=== PATIENT | male | born 1960 | race Caucasian/White ===

== ENCOUNTER → 2016-08-20 | Outpatient (REF) | payer OTHER ==
[~2016-08-20] MED LIST: /ESCI10TA PO; /WARF25TA PO; CARV6.25 PO; LISI10TA4 PO; NIAS500T2 PO; PERC5TAB8 PO; PERC7.5T8 PO; PLAV75TA2 PO
== END ==
LOC: M LABDRWAD 12:09
PROVIDERS: ATTEND Internal Medicine Cardiovascular Disease
DX: Z00.00 Encounter for general adult medical examination without abnormal findings (principal)

== ENCOUNTER → 2017-12-03 | Outpatient (REF) | payer OTHER ==
[2017-12-03 19:24] LABS: BASO % 0.4 % (0.0-1.0); HEMATOCRIT 42.5 % (42.0-52.0); HEMOGLOBIN 13.9 g/dl (13.5-17.5); IMMATURE GRANULOCYTE % 0.3 % (0-3.0); LYMPH # 1.5 10^3/uL (1.5-4.5); LYMPH % 13.7 % (24.0-44.0); MEAN CORPUSCULAR HGB CONC 32.7 g/dl (32.0-36.5); MEAN CORPUSCULAR VOLUME 88.7 fl (80.0-96.0); MONO % 8.9 % (0.0-5.0); NEUTROPHILS # 8.3 10^3/uL (1.8-7.7); NEUTROPHILS % 76.7 % (36.0-66.0); PLATELET COUNT, AUTOMATED 250 10^3/uL (150-450); RED BLOOD COUNT 4.79 10^6/uL (4.30-6.10); RED CELL DISTRIBUTION WIDTH 13.9 % (11.5-14.5); WHITE BLOOD COUNT 10.8 10^3/uL (4.0-10.0)
[2017-12-03 19:34] LABS: ANION GAP 6 MEQ/L (8-16); BLOOD UREA NITROGEN 21 MG/DL (7-18); CALCIUM LEVEL 8.8 MG/DL (8.5-10.1); CARBON DIOXIDE LEVEL 27 MEQ/L (21-32); CHLORIDE LEVEL 104 MEQ/L (98-107); CREATININE FOR GFR 1.62 MG/DL (0.70-1.30); GLOMERULAR FILTRATION RATE 47.2 (>56); GLUCOSE, FASTING 101 MG/DL (70-100); POTASSIUM SERUM 4.8 MEQ/L (3.5-5.1); SODIUM LEVEL 137 MEQ/L (136-145)
== END ==
LOC: M LABDRWAD 19:10
DX: I50.42 Chronic combined systolic (congestive) and diastolic (congestive) heart failure (principal); I44.7 Left bundle-branch block, unspecified; Z95.810 Presence of automatic (implantable) cardiac defibrillator

== ENCOUNTER → 2018-02-03 | Outpatient (REF) | payer OTHER ==
[2018-02-04 10:05] LABS: BASO % 0.4 % (0.0-1.0); EOS % 0.2 % (0.0-3.0); HEMATOCRIT 40.9 % (42.0-52.0); HEMOGLOBIN 13.2 g/dl (13.5-17.5); IMMATURE GRANULOCYTE % 0.4 % (0-3.0); LYMPH # 1.1 10^3/uL (1.5-4.5); LYMPH % 11.1 % (24.0-44.0); MEAN CORPUSCULAR HEMOGLOBIN 28.2 pg (27.0-33.0); MEAN CORPUSCULAR HGB CONC 32.3 g/dl (32.0-36.5); MEAN CORPUSCULAR VOLUME 87.4 fl (80.0-96.0); MONO # 0.7 10^3/uL (0.0-0.8); MONO % 7.7 % (0.0-5.0); NEUTROPHILS # 7.7 10^3/uL (1.8-7.7); NEUTROPHILS % 80.2 % (36.0-66.0); PLATELET COUNT, AUTOMATED 186 10^3/uL (150-450); RED BLOOD COUNT 4.68 10^6/uL (4.30-6.10); RED CELL DISTRIBUTION WIDTH 14.7 % (11.5-14.5); WHITE BLOOD COUNT 9.6 10^3/uL (4.0-10.0)
[2018-02-04 10:17] LABS: ANION GAP 9 MEQ/L (8-16); BLOOD UREA NITROGEN 21 MG/DL (7-18); CALCIUM LEVEL 8.5 MG/DL (8.5-10.1); CARBON DIOXIDE LEVEL 29 MEQ/L (21-32); CHLORIDE LEVEL 102 MEQ/L (98-107); CREATININE FOR GFR 1.19 MG/DL (0.70-1.30); GLOMERULAR FILTRATION RATE > 60.0 (>56); GLUCOSE, FASTING 113 MG/DL (70-100); POTASSIUM SERUM 4.3 MEQ/L (3.5-5.1); SODIUM LEVEL 140 MEQ/L (136-145)
== END ==
LOC: M LAB REF 09:54
DX: Z79.2 Long term (current) use of antibiotics (principal); Z51.81 Encounter for therapeutic drug level monitoring
CPT/HCPCS: 80048

== ENCOUNTER → 2018-02-10 | Outpatient (REF) | payer OTHER ==
[2018-02-10 14:16] LABS: BASO % 0.6 % (0.0-1.0); HEMATOCRIT 42.8 % (42.0-52.0); HEMOGLOBIN 13.5 g/dl (13.5-17.5); IMMATURE GRANULOCYTE % 0.7 % (0-3.0); LYMPH # 1.1 10^3/uL (1.5-4.5); LYMPH % 15.8 % (24.0-44.0); MEAN CORPUSCULAR HEMOGLOBIN 28.5 pg (27.0-33.0); MEAN CORPUSCULAR HGB CONC 31.5 g/dl (32.0-36.5); MEAN CORPUSCULAR VOLUME 90.3 fl (80.0-96.0); MONO # 0.7 10^3/uL (0.0-0.8); MONO % 9.4 % (0.0-5.0); NEUTROPHILS # 5.3 10^3/uL (1.8-7.7); NEUTROPHILS % 73.5 % (36.0-66.0); PLATELET COUNT, AUTOMATED 208 10^3/uL (150-450); RED BLOOD COUNT 4.74 10^6/uL (4.30-6.10); RED CELL DISTRIBUTION WIDTH 14.8 % (11.5-14.5); WHITE BLOOD COUNT 7.2 10^3/uL (4.0-10.0)
[2018-02-10 14:40] LABS: ANION GAP 12 MEQ/L (8-16); BLOOD UREA NITROGEN 17 MG/DL (7-18); CALCIUM LEVEL 8.6 MG/DL (8.5-10.1); CARBON DIOXIDE LEVEL 26 MEQ/L (21-32); CHLORIDE LEVEL 104 MEQ/L (98-107); CREATININE FOR GFR 1.16 MG/DL (0.70-1.30); GLOMERULAR FILTRATION RATE > 60.0 (>56); GLUCOSE, FASTING 105 MG/DL (70-100); POTASSIUM SERUM 3.9 MEQ/L (3.5-5.1); SODIUM LEVEL 142 MEQ/L (136-145)
== END ==
LOC: M LAB REF 13:03
DX: Z79.2 Long term (current) use of antibiotics (principal)

== ENCOUNTER → 2018-02-17 | Outpatient (REF) | payer OTHER ==
[2018-02-17 16:18] LABS: ANION GAP 11 MEQ/L (8-16); BLOOD UREA NITROGEN 18 MG/DL (7-18); CALCIUM LEVEL 8.9 MG/DL (8.5-10.1); CARBON DIOXIDE LEVEL 25 MEQ/L (21-32); CHLORIDE LEVEL 106 MEQ/L (98-107); CREATININE FOR GFR 1.05 MG/DL (0.70-1.30); GLOMERULAR FILTRATION RATE > 60.0 (>56); GLUCOSE, FASTING 138 MG/DL (70-100); SODIUM LEVEL 142 MEQ/L (136-145)
== END ==
LOC: M LAB REF 15:12
DX: Z79.2 Long term (current) use of antibiotics (principal)

== ENCOUNTER → 2018-02-24 | Outpatient (REF) | payer OTHER ==
[2018-02-24 19:45] LABS: BASO % 0.5 % (0.0-1.0); EOS % 0.2 % (0.0-3.0); HEMATOCRIT 43.3 % (42.0-52.0); HEMOGLOBIN 13.5 g/dl (13.5-17.5); IMMATURE GRANULOCYTE % 0.5 % (0-3.0); LYMPH # 0.8 10^3/uL (1.5-4.5); LYMPH % 13.1 % (24.0-44.0); MEAN CORPUSCULAR HGB CONC 31.2 g/dl (32.0-36.5); MEAN CORPUSCULAR VOLUME 89.6 fl (80.0-96.0); MONO # 0.6 10^3/uL (0.0-0.8); MONO % 9.3 % (0.0-5.0); NEUTROPHILS # 4.9 10^3/uL (1.8-7.7); NEUTROPHILS % 76.4 % (36.0-66.0); PLATELET COUNT, AUTOMATED 237 10^3/uL (150-450); RED BLOOD COUNT 4.83 10^6/uL (4.30-6.10); RED CELL DISTRIBUTION WIDTH 14.8 % (11.5-14.5); WHITE BLOOD COUNT 6.3 10^3/uL (4.0-10.0)
[2018-02-24 19:49] LABS: ANION GAP 8 MEQ/L (8-16); BLOOD UREA NITROGEN 18 MG/DL (7-18); CALCIUM LEVEL 9.1 MG/DL (8.5-10.1); CARBON DIOXIDE LEVEL 28 MEQ/L (21-32); CHLORIDE LEVEL 105 MEQ/L (98-107); CREATININE FOR GFR 1.27 MG/DL (0.70-1.30); GLOMERULAR FILTRATION RATE > 60.0 (>56); GLUCOSE, FASTING 125 MG/DL (70-100); POTASSIUM SERUM 4.2 MEQ/L (3.5-5.1); SODIUM LEVEL 141 MEQ/L (136-145)
== END ==
LOC: M LAB REF 19:14
DX: Z51.81 Encounter for therapeutic drug level monitoring (principal); Z79.2 Long term (current) use of antibiotics

== ENCOUNTER → 2018-03-03 | Outpatient (REF) | payer OTHER ==
[2018-03-03 12:35] LABS: BASO % 0.4 % (0.0-1.0); EOS % 0.1 % (0.0-3.0); HEMATOCRIT 42.8 % (42.0-52.0); HEMOGLOBIN 13.5 g/dl (13.5-17.5); IMMATURE GRANULOCYTE % 0.4 % (0-3.0); LYMPH # 0.8 10^3/uL (1.5-4.5); LYMPH % 12.4 % (24.0-44.0); MEAN CORPUSCULAR HEMOGLOBIN 27.8 pg (27.0-33.0); MEAN CORPUSCULAR HGB CONC 31.5 g/dl (32.0-36.5); MEAN CORPUSCULAR VOLUME 88.2 fl (80.0-96.0); MONO # 0.7 10^3/uL (0.0-0.8); MONO % 11.1 % (0.0-5.0); NEUTROPHILS # 5.1 10^3/uL (1.8-7.7); NEUTROPHILS % 75.6 % (36.0-66.0); PLATELET COUNT, AUTOMATED 243 10^3/uL (150-450); RED BLOOD COUNT 4.85 10^6/uL (4.30-6.10); RED CELL DISTRIBUTION WIDTH 14.6 % (11.5-14.5); WHITE BLOOD COUNT 6.7 10^3/uL (4.0-10.0)
[2018-03-03 13:10] LABS: ANION GAP 9 MEQ/L (8-16); BLOOD UREA NITROGEN 17 MG/DL (7-18); CALCIUM LEVEL 8.6 MG/DL (8.5-10.1); CARBON DIOXIDE LEVEL 26 MEQ/L (21-32); CHLORIDE LEVEL 107 MEQ/L (98-107); CREATININE FOR GFR 1.05 MG/DL (0.70-1.30); GLOMERULAR FILTRATION RATE > 60.0 (>56); GLUCOSE, FASTING 90 MG/DL (70-100); POTASSIUM SERUM 4.5 MEQ/L (3.5-5.1); SODIUM LEVEL 142 MEQ/L (136-145)
== END ==
LOC: M LAB REF 12:20
DX: Z51.81 Encounter for therapeutic drug level monitoring (principal); Z79.2 Long term (current) use of antibiotics

== ENCOUNTER → 2018-03-10 | Outpatient (REF) | payer OTHER ==
[2018-03-10 18:31] LABS: BASO % 0.4 % (0.0-1.0); HEMATOCRIT 42.2 % (42.0-52.0); HEMOGLOBIN 13.2 g/dl (13.5-17.5); IMMATURE GRANULOCYTE % 0.3 % (0-3.0); LYMPH # 0.9 10^3/uL (1.5-4.5); LYMPH % 12.8 % (24.0-44.0); MEAN CORPUSCULAR HEMOGLOBIN 27.7 pg (27.0-33.0); MEAN CORPUSCULAR HGB CONC 31.3 g/dl (32.0-36.5); MEAN CORPUSCULAR VOLUME 88.5 fl (80.0-96.0); MONO # 0.6 10^3/uL (0.0-0.8); NEUTROPHILS # 5.4 10^3/uL (1.8-7.7); NEUTROPHILS % 77.5 % (36.0-66.0); PLATELET COUNT, AUTOMATED 239 10^3/uL (150-450); RED BLOOD COUNT 4.77 10^6/uL (4.30-6.10); RED CELL DISTRIBUTION WIDTH 14.4 % (11.5-14.5)
[2018-03-10 19:11] LABS: ANION GAP 9 MEQ/L (8-16); BLOOD UREA NITROGEN 18 MG/DL (7-18); CALCIUM LEVEL 8.9 MG/DL (8.5-10.1); CARBON DIOXIDE LEVEL 28 MEQ/L (21-32); CHLORIDE LEVEL 104 MEQ/L (98-107); CREATININE FOR GFR 1.14 MG/DL (0.70-1.30); GLOMERULAR FILTRATION RATE > 60.0 (>56); GLUCOSE, FASTING 127 MG/DL (70-100); POTASSIUM SERUM 4.3 MEQ/L (3.5-5.1); SODIUM LEVEL 141 MEQ/L (136-145)
== END ==
LOC: M LAB REF 17:53
DX: Z79.2 Long term (current) use of antibiotics (principal)

== ENCOUNTER → 2018-08-16 | Outpatient (REF) | payer OTHER ==
[~2018-08-16] MED LIST changes: +FURO40TA2 PO; +LIPI80TA PO; +SPIR-10 PO; +SYNT50TA PO; +ZETI10TA30 PO
[2018-08-16 21:06] LABS: BLOOD UREA NITROGEN 16 MG/DL (7-18); CALCIUM LEVEL 8.4 MG/DL (8.5-10.1); CARBON DIOXIDE LEVEL 29 MEQ/L (21-32); CHLORIDE LEVEL 92 MEQ/L (98-107); CREATININE FOR GFR 1.06 MG/DL (0.70-1.30); GLOMERULAR FILTRATION RATE > 60.0 (>56); GLUCOSE, FASTING 77 MG/DL (70-100); LDH LACTATE DEHYDROGENASE 404 U/L (87-241); MAGNESIUM LEVEL 2.1 MG/DL (1.8-2.4); POTASSIUM SERUM 3.8 MEQ/L (3.5-5.1); SODIUM LEVEL 134 MEQ/L (136-145)
[2018-08-16 21:09] LABS: HEMATOCRIT 27.1 % (42.0-52.0); HEMOGLOBIN 8.2 g/dl (13.5-17.5); MEAN CORPUSCULAR HEMOGLOBIN 23.9 pg (27.0-33.0); MEAN CORPUSCULAR HGB CONC 30.3 g/dl (32.0-36.5); PLATELET COUNT, AUTOMATED 495 10^3/uL (150-450); RED BLOOD COUNT 3.43 10^6/uL (4.30-6.10); WHITE BLOOD COUNT 20.6 10^3/uL (4.0-10.0)
[2018-08-16 21:22] LABS: INR 1.5; PROTHROMBIN TIME 18.4 SECONDS (12.1-14.4)
== END ==
LOC: M LAB REF 18:14
DX: Z95.811 Presence of heart assist device (principal)

== ENCOUNTER → 2018-08-30 | Outpatient (REF) | payer OTHER ==
[2018-08-30 18:16] LABS: HEMOGLOBIN 10.9 g/dl (13.5-17.5); MEAN CORPUSCULAR HEMOGLOBIN 23.6 pg (27.0-33.0); MEAN CORPUSCULAR HGB CONC 30.3 g/dl (32.0-36.5); MEAN CORPUSCULAR VOLUME 77.9 fl (80.0-96.0); PLATELET COUNT, AUTOMATED 429 10^3/uL (150-450); RED BLOOD COUNT 4.62 10^6/uL (4.30-6.10); WHITE BLOOD COUNT 11.5 10^3/uL (4.0-10.0)
[2018-08-30 18:32] LABS: BLOOD UREA NITROGEN 21 MG/DL (7-18); CALCIUM LEVEL 9.2 MG/DL (8.5-10.1); CARBON DIOXIDE LEVEL 31 MEQ/L (21-32); CHLORIDE LEVEL 91 MEQ/L (98-107); CREATININE FOR GFR 1.16 MG/DL (0.70-1.30); GLOMERULAR FILTRATION RATE > 60.0 (>56); GLUCOSE, FASTING 101 MG/DL (70-100); LDH LACTATE DEHYDROGENASE 313 U/L (87-241); MAGNESIUM LEVEL 2.1 MG/DL (1.8-2.4); POTASSIUM SERUM 3.6 MEQ/L (3.5-5.1); SODIUM LEVEL 132 MEQ/L (136-145)
[2018-08-30 18:41] LABS: INR 2.11
== END ==
LOC: M LAB REF 16:51
PROVIDERS: ATTEND Physician Assistant Medical
DX: Z95.811 Presence of heart assist device (principal)

== ENCOUNTER → 2018-09-06 | Outpatient (REF) | payer OTHER ==
[~2018-09-06] MED LIST changes: +ALLO100T PO; +COLA100C5 PO; +COUM1TAB14 PO; +FERR325T3 PO; +HYDR-3910 PO; +K-TA10TA2 PO; +PROTPAK PO; +TORS20TA2 PO; +TRAM50TA2 PO
[2018-09-06 19:56] LABS: HEMATOCRIT 37.2 % (42.0-52.0); HEMOGLOBIN 11.2 g/dl (13.5-17.5); MEAN CORPUSCULAR HEMOGLOBIN 23.3 pg (27.0-33.0); MEAN CORPUSCULAR HGB CONC 30.1 g/dl (32.0-36.5); MEAN CORPUSCULAR VOLUME 77.5 fl (80.0-96.0); PLATELET COUNT, AUTOMATED 358 10^3/uL (150-450); WHITE BLOOD COUNT 18.7 10^3/uL (4.0-10.0)
[2018-09-06 20:10] LABS: INR 1.97; PROTHROMBIN TIME 22.8 SECONDS (12.1-14.4)
[2018-09-06 20:17] LABS: BLOOD UREA NITROGEN 40 MG/DL (7-18); CALCIUM LEVEL 9.6 MG/DL (8.5-10.1); CARBON DIOXIDE LEVEL 35 MEQ/L (21-32); CHLORIDE LEVEL 90 MEQ/L (98-107); GLOMERULAR FILTRATION RATE > 60.0 (>56); GLUCOSE, FASTING 76 MG/DL (70-100); LDH LACTATE DEHYDROGENASE 282 U/L (87-241); MAGNESIUM LEVEL 2.5 MG/DL (1.8-2.4); POTASSIUM SERUM 4.2 MEQ/L (3.5-5.1); SODIUM LEVEL 133 MEQ/L (136-145)
== END ==
LOC: M LAB REF 19:28
PROVIDERS: ATTEND Physician Assistant Medical
DX: Z95.811 Presence of heart assist device (principal)

== ENCOUNTER 2018-09-12 10:16 | Emergency (ER) | payer OTHER ==
[~2018-09-12] VITALS: Ht 185.4 cm; Wt 111.2 kg
[~2018-09-12 10:16] MED LIST changes: -ALLO100T PO; -COLA100C5 PO; -COUM1TAB14 PO; -FERR325T3 PO; -HYDR-3910 PO; -K-TA10TA2 PO; -PROTPAK PO; -TORS20TA2 PO; -TRAM50TA2 PO
[2018-09-12] MEDS ORDERED: NS 250 ML IV ONE (11:00)
[2018-09-12 11:26] LABS: BASO # 0.1 10^3/uL (0.0-0.2); BASO % 0.4 % (0.0-1.0); HEMATOCRIT 35.6 % (42.0-52.0); HEMOGLOBIN 11.1 g/dl (13.5-17.5); LYMPH # 0.8 10^3/uL (1.5-4.5); LYMPH % 6.1 % (24.0-44.0); MEAN CORPUSCULAR HGB CONC 31.2 g/dl (32.0-36.5); MEAN CORPUSCULAR VOLUME 76.9 fl (80.0-96.0); MONO % 8.1 % (0.0-5.0); NEUTROPHILS # 10.7 10^3/uL (1.8-7.7); NEUTROPHILS % 84.5 % (36.0-66.0); PLATELET COUNT, AUTOMATED 232 10^3/uL (150-450); RED BLOOD COUNT 4.63 10^6/uL (4.30-6.10); WHITE BLOOD COUNT 12.7 10^3/uL (4.0-10.0)
[2018-09-12 11:37] LABS: INR 1.84; PROTHROMBIN TIME 21.6 SECONDS (12.1-14.4)
--- NOTE | 2018-09-12 11:53 | REP ---
Chest one-view HISTORY: Syncope Comparison: 03/16/2018 An increase in interstitial markings is present in the lungs consistent with chronic interstitial change. The cardiac silhouette is enlarged. The pulmonary vasculature is normal in appearance. A cardiac pacemaker and ventricular assist device are present. Impression: 1. Chronic interstitial change. 2. Cardiomegaly. Electronically Signed by Isaiah Laughlin MD 09/12/2018 11:44 A
--- NOTE | 2018-09-12 12:00 | REP ---
Duplex extremity venous ultrasound: Bilateral lower extremity. History: Calf pain. Question DVT. Findings: The deep veins are anechoic and fully compressible from the groin to the popliteal fossa in the left and right lower extremity. Color flow imaging is homogeneous. Spectral Doppler interrogation demonstrates intact respiratory variation in flow and normal manual augmentation of flow. There is no evidence of deep vein thrombosis. Impression: Negative bilateral lower extremity duplex venous ultrasound. No evidence of deep vein thrombosis. Electronically Signed by Ko Sidhu MD 09/12/2018 11:51 A
[2018-09-12 12:04] LABS: ALT/SGPT 40 U/L (12-78); BILIRUBIN,DIRECT 0.2 MG/DL (0.0-0.2); BILIRUBIN,TOTAL 0.8 MG/DL (0.2-1.0); BLOOD UREA NITROGEN 34 MG/DL (7-18); CALCIUM LEVEL 9.3 MG/DL (8.5-10.1); CARBON DIOXIDE LEVEL 28 MEQ/L (21-32); CHLORIDE LEVEL 90 MEQ/L (98-107); CK-MB VALUE MASS < 1.0 NG/ML (<3.6); CPK CREATINE PHOSPHOKINASE 58 U/L (39-308); GLOMERULAR FILTRATION RATE 55.6 (>56); GLUCOSE, FASTING 168 MG/DL (70-100); LDH LACTATE DEHYDROGENASE 224 U/L (87-241); LIPASE 125 U/L (73-393); MAGNESIUM LEVEL 2.2 MG/DL (1.8-2.4); MB/CK RELATIVE INDEX 1.72 (< OR =4); SODIUM LEVEL 130 MEQ/L (136-145); TOTAL PROTEIN 7.4 GM/DL (6.4-8.2); TROPONIN I 0.04 NG/ML (< 0.10)
--- NOTE | 2018-09-12 12:27 | REP ---
CT Head without contrast HISTORY: Fall COMPARISON: None There is no intraparenchymal hemorrhage, acute infarct, mass or midline shift. The ventricular system is normal in appearance. The cortical sulci are dilated consistent with minimal volume loss. There is no extra cerebral collection. There is no fracture. The visualized sinuses are clear. IMPRESSION: Minimal volume loss. Electronically Signed by Isaiah Laughlin MD 09/12/2018 12:18 P
[2018-09-12] MEDS ORDERED: POTASSIUM CHLORIDE 10 MEQ SR TABLET PO ONE (12:30)
[2018-09-12] MEDS ORDERED: COUM1TAB14 PO (12:49)
[2018-09-12] MEDS ORDERED: K-TA10TA2 PO (12:49)
[2018-09-12] MEDS ORDERED: TORS20TA2 PO (12:49)
[2018-09-12] MEDS ORDERED: TRAM50TA2 PO (12:49)
[2018-09-12] MEDS ORDERED: PROTPAK PO (12:49)
[2018-09-12] MEDS ORDERED: ALLO100T PO (12:49)
[2018-09-12] MEDS ORDERED: COLA100C5 PO (12:49)
[2018-09-12] MEDS ORDERED: FERR325T3 PO (12:58)
[2018-09-12] MEDS ORDERED: LEVOTHYROXINE 50MCG TABLET (0.05MG) PO SCH (13:00)
[2018-09-12] MEDS ORDERED: SPIRONOLACTONE 25 MG TAB PO ONE (13:00)
[2018-09-12] MEDS ORDERED: ESCITALOPRAM OXALATE 10 MG TAB (LEXAPRO) PO ONE (13:00)
[2018-09-12] MEDS ORDERED: LEVOTHYROXINE 50MCG TABLET (0.05MG) PO ONE (13:00)
[2018-09-12] MEDS ORDERED: PANTOPRAZOLE 40MG TAB (PROTONIX) PO ONE (13:00)
[2018-09-12] MEDS ORDERED: ALLOPURINOL 100 MG TAB PO ONE (13:00)
[2018-09-12] MEDS ORDERED: FERROUS SULFATE 325MG TAB PO ONE (13:00)
[2018-09-12] MEDS ORDERED: **hydrALAZINE HCL** 25 MG TAB PO ONE (13:00)
[2018-09-12] MEDS ORDERED: SPIRONOLACTONE 25 MG TAB PO SCH (13:00)
[2018-09-12] MEDS ORDERED: FERROUS SULFATE 325MG TAB PO SCH (13:00)
[2018-09-12] MEDS ORDERED: ALLOPURINOL 100 MG TAB PO SCH (13:00)
[2018-09-12] MEDS ORDERED: HYDR-3910 PO (13:07)
[2018-09-12 15:02] VITALS: BP 90/90
--- NOTE | 2018-09-14 08:40 | ECGEPIP ---
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
== END 2018-09-12 15:06 | disposition short-term general hospital (02) ==
LOC: M ED 10:16
DX: R55 Syncope and collapse (principal); E87.6 Hypokalemia; E87.1 Hypo-osmolality and hyponatremia; I95.9 Hypotension, unspecified; Z95.811 Presence of heart assist device; I49.9 Cardiac arrhythmia, unspecified; I13.11 Hypertensive heart and chronic kidney disease without heart failure, with stage 5 chronic kidney disease, or end stage renal disease; I25.10 Atherosclerotic heart disease of native coronary artery without angina pectoris; I25.2 Old myocardial infarction; G47.30 Sleep apnea, unspecified; N18.6 End stage renal disease; E78.9 Disorder of lipoprotein metabolism, unspecified; E03.9 Hypothyroidism, unspecified; Z95.5 Presence of coronary angioplasty implant and graft; Z79.899 Other long term (current) drug therapy; Z79.01 Long term (current) use of anticoagulants

== ENCOUNTER → 2018-09-14 | Outpatient (REF) | payer OTHER ==
[~2018-09-14] MED LIST changes: +ALLO100T PO; +COLA100C5 PO; +COUM1TAB14 PO; +FERR325T3 PO; +HYDR-3910 PO; +K-TA10TA2 PO; +PROTPAK PO; +TORS20TA2 PO; +TRAM50TA2 PO
[2018-09-14 20:34] LABS: HEMATOCRIT 33.2 % (42.0-52.0); HEMOGLOBIN 10.1 g/dl (13.5-17.5); MEAN CORPUSCULAR HEMOGLOBIN 23.6 pg (27.0-33.0); MEAN CORPUSCULAR HGB CONC 30.4 g/dl (32.0-36.5); MEAN CORPUSCULAR VOLUME 77.6 fl (80.0-96.0); PLATELET COUNT, AUTOMATED 208 10^3/uL (150-450); RED BLOOD COUNT 4.28 10^6/uL (4.30-6.10); WHITE BLOOD COUNT 9.4 10^3/uL (4.0-10.0)
[2018-09-14 20:43] LABS: INR 1.63; PROTHROMBIN TIME 19.6 SECONDS (12.1-14.4)
[2018-09-14 20:52] LABS: BLOOD UREA NITROGEN 17 MG/DL (7-18); CALCIUM LEVEL 8.7 MG/DL (8.5-10.1); CARBON DIOXIDE LEVEL 31 MEQ/L (21-32); CHLORIDE LEVEL 97 MEQ/L (98-107); CREATININE FOR GFR 0.98 MG/DL (0.70-1.30); GLOMERULAR FILTRATION RATE > 60.0 (>56); GLUCOSE, FASTING 135 MG/DL (70-100); LDH LACTATE DEHYDROGENASE 245 U/L (87-241); MAGNESIUM LEVEL 2.5 MG/DL (1.8-2.4); POTASSIUM SERUM 4.3 MEQ/L (3.5-5.1); SODIUM LEVEL 135 MEQ/L (136-145)
== END ==
LOC: M LAB REF 18:29
PROVIDERS: ATTEND Physician Assistant Medical
DX: Z95.811 Presence of heart assist device (principal)

== ENCOUNTER → 2018-09-27 | Outpatient (REF) | payer OTHER ==
[2018-09-27 20:26] LABS: BLOOD UREA NITROGEN 21 MG/DL (7-18); CALCIUM LEVEL 8.8 MG/DL (8.5-10.1); CARBON DIOXIDE LEVEL 27 MEQ/L (21-32); CHLORIDE LEVEL 98 MEQ/L (98-107); CREATININE FOR GFR 1.05 MG/DL (0.70-1.30); GLOMERULAR FILTRATION RATE > 60.0 (>56); GLUCOSE, FASTING 145 MG/DL (70-100); LDH LACTATE DEHYDROGENASE 274 U/L (87-241); MAGNESIUM LEVEL 2.1 MG/DL (1.8-2.4); SODIUM LEVEL 135 MEQ/L (136-145)
[2018-09-27 20:41] LABS: HEMATOCRIT 34.2 % (42.0-52.0); HEMOGLOBIN 10.3 g/dl (13.5-17.5); MEAN CORPUSCULAR HEMOGLOBIN 24.1 pg (27.0-33.0); MEAN CORPUSCULAR HGB CONC 30.1 g/dl (32.0-36.5); MEAN CORPUSCULAR VOLUME 79.9 fl (80.0-96.0); PLATELET COUNT, AUTOMATED 294 10^3/uL (150-450); RED BLOOD COUNT 4.28 10^6/uL (4.30-6.10); WHITE BLOOD COUNT 7.9 10^3/uL (4.0-10.0)
[2018-09-27 21:07] LABS: INR 1.59; PROTHROMBIN TIME 19.2 SECONDS (12.1-14.4)
== END ==
LOC: M LABDRWAD 19:12 → M LAB REF 19:12
PROVIDERS: ATTEND Physician Assistant Medical
DX: Z95.811 Presence of heart assist device (principal); Z79.01 Long term (current) use of anticoagulants

== ENCOUNTER → 2018-10-04 | Outpatient (REF) | payer OTHER ==
[2018-10-04 13:55] LABS: C REACTIVE PROTEIN QUANTITATIV 1.22 MG/DL (0.00-0.30); URIC ACID 7.4 MG/DL (3.5-7.2)
[2018-10-04 18:48] LABS: PERCENT SATURATION 16.3 % (19.7-50.0)
== END ==
LOC: M LAB REF 12:31
PROVIDERS: ATTEND Internal Medicine
DX: M25.561 Pain in right knee (principal); N18.3 Chronic kidney disease, stage 3 (moderate); D64.9 Anemia, unspecified; Z79.01 Long term (current) use of anticoagulants

== ENCOUNTER → 2018-10-04 | Outpatient (REF) | payer OTHER ==
[2018-10-04 15:06] LABS: HEMATOCRIT 33.7 % (42.0-52.0); HEMOGLOBIN 10.4 g/dl (13.5-17.5); MEAN CORPUSCULAR HEMOGLOBIN 24.4 pg (27.0-33.0); MEAN CORPUSCULAR HGB CONC 30.9 g/dl (32.0-36.5); MEAN CORPUSCULAR VOLUME 78.9 fl (80.0-96.0); PLATELET COUNT, AUTOMATED 253 10^3/uL (150-450); RED BLOOD COUNT 4.27 10^6/uL (4.30-6.10); WHITE BLOOD COUNT 9.5 10^3/uL (4.0-10.0)
[2018-10-04 15:18] LABS: INR 1.38; PROTHROMBIN TIME 17.2 SECONDS (12.1-14.4)
[2018-10-04 15:27] LABS: BLOOD UREA NITROGEN 20 MG/DL (7-18); CALCIUM LEVEL 8.7 MG/DL (8.5-10.1); CARBON DIOXIDE LEVEL 31 MEQ/L (21-32); CHLORIDE LEVEL 99 MEQ/L (98-107); CREATININE FOR GFR 1.13 MG/DL (0.70-1.30); GLOMERULAR FILTRATION RATE > 60.0 (>56); GLUCOSE, FASTING 83 MG/DL (70-100); MAGNESIUM LEVEL 2.1 MG/DL (1.8-2.4); POTASSIUM SERUM 4.3 MEQ/L (3.5-5.1); SODIUM LEVEL 137 MEQ/L (136-145)
[2018-10-04 15:41] LABS: LDH LACTATE DEHYDROGENASE 215 U/L (87-241)
== END ==
LOC: M LAB REF 14:43
PROVIDERS: ATTEND Physician Assistant Medical
DX: Z95.811 Presence of heart assist device (principal); Z79.01 Long term (current) use of anticoagulants

== ENCOUNTER → 2018-10-11 | Outpatient (REF) | payer OTHER ==
[2018-10-11 18:23] LABS: HEMATOCRIT 34.1 % (42.0-52.0); HEMOGLOBIN 10.5 g/dl (13.5-17.5); MEAN CORPUSCULAR HGB CONC 30.8 g/dl (32.0-36.5); PLATELET COUNT, AUTOMATED 252 10^3/uL (150-450); RED BLOOD COUNT 4.37 10^6/uL (4.30-6.10); WHITE BLOOD COUNT 10.8 10^3/uL (4.0-10.0)
[2018-10-11 18:26] LABS: BLOOD UREA NITROGEN 23 MG/DL (7-18); CALCIUM LEVEL 8.6 MG/DL (8.5-10.1); CARBON DIOXIDE LEVEL 30 MEQ/L (21-32); CHLORIDE LEVEL 100 MEQ/L (98-107); CREATININE FOR GFR 1.16 MG/DL (0.70-1.30); GLOMERULAR FILTRATION RATE > 60.0 (>56); GLUCOSE, FASTING 85 MG/DL (70-100); LDH LACTATE DEHYDROGENASE 214 U/L (87-241); MAGNESIUM LEVEL 2.2 MG/DL (1.8-2.4); POTASSIUM SERUM 4.1 MEQ/L (3.5-5.1); SODIUM LEVEL 136 MEQ/L (136-145)
[2018-10-11 18:36] LABS: INR 1.48; PROTHROMBIN TIME 18.2 SECONDS (12.1-14.4)
== END ==
LOC: M LAB REF 16:58
PROVIDERS: ATTEND Physician Assistant Medical
DX: Z95.811 Presence of heart assist device (principal); Z79.01 Long term (current) use of anticoagulants

== ENCOUNTER → 2018-10-11 | Outpatient (REF) | payer OTHER ==
[2018-10-11 13:40] LABS: INR 1.45; PROTHROMBIN TIME 17.8 SECONDS (12.1-14.4)
== END ==
LOC: M LABDRAW1 12:45
PROVIDERS: ATTEND Physician Assistant
DX: S83.91XA Sprain of unspecified site of right knee, initial encounter (principal); W19.XXXA Unspecified fall, initial encounter; Y92.89 Other specified places as the place of occurrence of the external cause

== ENCOUNTER → 2018-10-25 | Outpatient (REF) | payer OTHER ==
[2018-10-25 10:36] LABS: HEMATOCRIT 34.8 % (42.0-52.0); HEMOGLOBIN 10.6 g/dl (13.5-17.5); MEAN CORPUSCULAR HEMOGLOBIN 24.1 pg (27.0-33.0); MEAN CORPUSCULAR HGB CONC 30.5 g/dl (32.0-36.5); MEAN CORPUSCULAR VOLUME 79.3 fl (80.0-96.0); PLATELET COUNT, AUTOMATED 255 10^3/uL (150-450); RED BLOOD COUNT 4.39 10^6/uL (4.30-6.10); WHITE BLOOD COUNT 9.9 10^3/uL (4.0-10.0)
[2018-10-25 10:41] LABS: BLOOD UREA NITROGEN 17 MG/DL (7-18); CALCIUM LEVEL 8.5 MG/DL (8.5-10.1); CARBON DIOXIDE LEVEL 28 MEQ/L (21-32); CHLORIDE LEVEL 101 MEQ/L (98-107); CREATININE FOR GFR 1.13 MG/DL (0.70-1.30); GLOMERULAR FILTRATION RATE > 60.0 (>56); GLUCOSE, FASTING 125 MG/DL (70-100); LDH LACTATE DEHYDROGENASE 256 U/L (87-241); MAGNESIUM LEVEL 2.2 MG/DL (1.8-2.4); POTASSIUM SERUM 4.4 MEQ/L (3.5-5.1); SODIUM LEVEL 136 MEQ/L (136-145)
[2018-10-25 10:45] LABS: INR 1.59; PROTHROMBIN TIME 19.2 SECONDS (12.1-14.4)
== END ==
LOC: M LAB REF 09:50
PROVIDERS: ATTEND Physician Assistant Medical
DX: Z95.811 Presence of heart assist device (principal)

== ENCOUNTER → 2018-11-08 | Outpatient (REF) | payer OTHER ==
[~2018-11-08] MED LIST changes: -/ESCI10TA PO; -/WARF25TA PO; +COUM1TAB18 PO; +LEXA1TAB PO
[2018-11-08 20:06] LABS: HEMATOCRIT 38.2 % (42.0-52.0); HEMOGLOBIN 11.3 g/dl (13.5-17.5); MEAN CORPUSCULAR HEMOGLOBIN 23.7 pg (27.0-33.0); MEAN CORPUSCULAR HGB CONC 29.6 g/dl (32.0-36.5); MEAN CORPUSCULAR VOLUME 80.3 fl (80.0-96.0); PLATELET COUNT, AUTOMATED 302 10^3/uL (150-450); RED BLOOD COUNT 4.76 10^6/uL (4.30-6.10); WHITE BLOOD COUNT 8.6 10^3/uL (4.0-10.0)
[2018-11-08 20:17] LABS: BLOOD UREA NITROGEN 17 MG/DL (7-18); CALCIUM LEVEL 8.7 MG/DL (8.5-10.1); CARBON DIOXIDE LEVEL 30 MEQ/L (21-32); CHLORIDE LEVEL 99 MEQ/L (98-107); GLOMERULAR FILTRATION RATE > 60.0 (>56); GLUCOSE, FASTING 83 MG/DL (70-100); LDH LACTATE DEHYDROGENASE 231 U/L (87-241); MAGNESIUM LEVEL 2.3 MG/DL (1.8-2.4); POTASSIUM SERUM 4.5 MEQ/L (3.5-5.1); SODIUM LEVEL 136 MEQ/L (136-145)
[2018-11-08 20:18] LABS: INR 1.85; PROTHROMBIN TIME 21.7 SECONDS (12.1-14.4)
== END ==
LOC: M LABDRWAD 19:24
PROVIDERS: ATTEND Nurse Practitioner Acute Care
DX: Z51.81 Encounter for therapeutic drug level monitoring (principal); Z79.01 Long term (current) use of anticoagulants; Z79.899 Other long term (current) drug therapy; Z95.811 Presence of heart assist device; D59.4 Other nonautoimmune hemolytic anemias; R79.0 Abnormal level of blood mineral; T82.897A Other specified complication of cardiac prosthetic devices, implants and grafts, initial encounter; Y83.1 Surgical operation with implant of artificial internal device as the cause of abnormal reaction of the patient, or of later complication, without mention of misadventure at the time of the procedure

== ENCOUNTER → 2018-11-25 | Outpatient (REF) | payer OTHER ==
[2018-11-25 15:21] LABS: PERCENT SATURATION 8.9 % (19.7-50.0)
== END ==
LOC: M LAB REF 12:37
PROVIDERS: ATTEND Internal Medicine
DX: D64.9 Anemia, unspecified (principal)

== ENCOUNTER 2019-01-04 10:42 | Outpatient (RCR) | payer OTHER, SELFPAY ==
--- NOTE | 2018-12-08 15:38 | CARECAPL ---
Assessment Account #s: Initial Assessment (LVAD- DR. VILLA) General Date of event: Aug 04, 2018 Physician: Guille Araya Allergies: Coded Allergies: MS - No Known Drug Allergy (Verified Allergy, Unknown, 11/15/12) Date Entered Program: December 08, 2018 Risk strat for cardiac event: High (LVAD) Exercise Date: December 08, 2018 Assessment: Initial Assessment Exercise Prescription Plan TO EDUCATE AND BUILD ENDURANCE THROUGH MONITORED EXERCISE Modalities initiated: Treadmill (WILL ADD), Cardio-Strider (WILL ADD), Nustep (WILL ADD), Arm Aerometer (WILL ADD), Dumbells (WILL ADD), Recumbent Bike (WILL ADD) Frequency: 3 Duration (Minutes) 30-60 minutes total exercise a day. 10-15 work intervals in minutes. 5 MINUTES PRN rest intervals in minutes. Functional Capacity Goal Sustained Metabolic Equivalent of a task (MET) goal of 2.5-3.0 for 12-15 minutes. Intensity: 3-Moderate Progression (METS) Increase by: 0.5 METS every: 3-5 sessions Target Heart Rate 98-131 PER AGE PREDICTED Resistance Training: Yes Reps: 8-12 Hypertension: Yes Hypertension controlled with: Medication Resting SBP 84 Medications Scheduled Allopurinol (Allopurinol), 100 MG PO DAILY, (Reported) Aspirin (Aspir 81), 81 MG PO DAILY, (Reported) Atorvastatin Calcium (Lipitor), 80 MG PO DAILY, (Reported) Escitalopram Oxalate (Lexapro), 20 MG PO DAILY, (Reported) Ezetimibe (Zetia), 10 MG PO DAILY, (Reported) Ferrous Sulfate (Ferrous Sulfate), 325 MG PO DAILY, (Reported) Hydralazine HCl (Hydralazine HCl), 25 MG PO TID, (Reported) Levothyroxine Sodium (Synthroid), 50 MCG PO DAILY, (Reported) Polyethylene Glycol 3350 (Miralax), 17 GRAM PO BID, (Reported) Spironolactone (Spironolactone), 25 MG PO DAILY, (Reported) Torsemide (Torsemide), 20 MG PO QAM, (Reported) Torsemide (Torsemide), 10 MG PO QPM, (Reported) Warfarin Sodium (Coumadin), 4 MG PO DAILY, (Reported) Scheduled PRN Acetaminophen (Acetaminophen), 2 TAB PO TIDP PRN for PAIN OR FEVER, (Reported) Albuterol Sulfate (Proair Hfa), 2 PUFF INH Q4-6HP PRN for wheezing, (Reported) Docusate Sodium (Colace), 100 MG PO BIDP PRN for CONSTIPATION, (Reported) Tramadol HCl (Tramadol HCl), 50 MG PO Q6HP PRN for pain, (Reported) Discontinued Medications Docusate Sodium (Colace), 1 CAP PO BID, (Reported) Discontinued Reason: Pt states not taking Pantoprazole Sodium (Protonix), 40 MG PO DAILY, (Reported) Discontinued Reason: Pt states not taking Potassium Chloride (K-Tab ER), 20 MEQ PO, (Reported) Discontinued Reason: Pt states not taking Torsemide (Torsemide), 20 MG PO DAILY, (Reported) Discontinued Reason: Pt states not taking Current BP 84 Med Change: No Intervention Resistance Training: Yes Education: Self pulse, Ex safety, S/S to report, Low NA diet, BP medication, RPE Scale, Equipment orientation, warm up/cool down, Understand BP, Physical Active Target Goals Individual exercise Rx (1) BP 140/90 or 130/80 if DM or CKD (1) Aerobic active 30+min 5 days per week (1) Nutrition Date: December 08, 2018 Assessment: Initial Assessment (LVAD) Lipid- med/supplement LIPITOR Med Change: No Diabetes Diabetes: No Monitor Blood Sugar at home: No Medication Change: No Weight Management Weight (lbs): 269.8 Height (inches): 73.5 Waist Circumference (Inches): 46 BMI: 35.1 Weight goal: 225 Special Diet: low salt, low-fat Alcohol: none Diet Access Tool: Rate your plate Score: 64 Current Weight (pounds): 269.8 Weight Goal 225 Intervention Financial Aid Officer Consult: No Nurse/patient discussion: Yes Dietary Goals TO MAKE HEART HEALTHY CHOICES Diet Class: Yes (WILL SEE SKIMMER REVERBERATORY DURING PHASE II PROGRAM) Referral to Diabetes education: No Referral to lipid clinic: No Referral to weight mangement p: No Education Relate Diabetes in CAD, Eating Healthy Target goal LDL-C<100 if triglycerides are >200 Non-HDL-C should be <130 (1) LDL-C<70 for high risk patients (4) HbA1c<7% (1) BMI<25 Waist cir<40in M/<35in F (1) Education Date: December 08, 2018 Assessment: Initial Assessment (LVAD) Learning Barriers: ready Knowledge Test Score: 10 Family Support: Yes Tobacco use: No Quit: >6 months Tobacco Use Date quit: Jun 09, 2005 Smokeless tobacco: No Intervention Referral to smoking cessation: No Individual education and couns: No Tobacco Adjunct: No Education class schedule given: No Attended education classes: No Education: tobacco triggers, CAD, Risk factors, med compliance, cardiac A&P, Angina S/S, Sexuality Target Goals Complete cessation of tobacco use (1). Psychosocial Date: December 08, 2018 Assessment: Initial Assessment Psych Test (Initial/Discharge) Tool Used: CESD Score: 24 Intervention Physician Consult: No Physician Referral: No Stress Management Class: No Uses Stress Management Skills: Yes Education Education: Coping Techniques, S/S depression, Relaxation Techniques Target Goal Assess presence or absence of depression using a valid screening tool (1). Maximize coping skills (2). Positive support system (2). Patient/Program Goal Preventative Medication: Yes Aspirin, Yes Statin/OTR lipid Lowering Fall Risk Assess: Yes (NOT A FALL RISK) Provider Assessment Session Number: 1 Provider Assessment: Proceed with rehab Jose Rosen RN December 08, 2018 15:38
[~2019-01-04 10:42] MED LIST changes: +ASPI81TA85 PO; +MIRA3350 PO; +NON-325T5 PO; +PROAAER10 INH; +TORS10TA3 PO
--- NOTE | 2019-01-04 14:14 | CARECAPL ---
Assessment Account #s: Re-Assessment I (LVAD-Dr Clark) General Date of event: Aug 04, 2018 Physician: Guille Araya Allergies: Coded Allergies: MS - No Known Drug Allergy (Verified Allergy, Unknown, 11/15/12) Date Entered Program: December 08, 2018 Risk strat for cardiac event: High ((lvad)) Exercise Date: January 04, 2019 Assessment: Re-Assessment I Exercise Prescription Plan to educate about cardiac disease and to build endurance and strength through a monitored exercise program Modalities initiated: Treadmill (2.0/0.5 mts 2.81 rpe 2 10 minutes), Nustep (mts 2.7 rpe 2 l3), Arm Aerometer (2.0 rpe 3 mts 2.35), Recumbent Bike (R4 10 mi nutes mts 2.7 rpe2) Frequency: 2-3 Duration (Minutes) 30-60 minutes total exercise a day. 6-10 work intervals in minutes. as needed- rest intervals in minutes. Functional Capacity Goal Sustained Metabolic Equivalent of a task (MET) goal of 3.5-4.0 for 15-20 minutes. Intensity: 3-Moderate Progression (METS) Increase by: 0.5 METS every: 2-3 sessions Angina with ex: No Resistance Training: Yes Weight (pounds): 3 Reps: 6-8 Medications Scheduled Allopurinol (Allopurinol), 100 MG PO DAILY, (Reported) Aspirin (Aspir 81), 81 MG PO DAILY, (Reported) Atorvastatin Calcium (Lipitor), 80 MG PO DAILY, (Reported) Escitalopram Oxalate (Lexapro), 20 MG PO DAILY, (Reported) Ezetimibe (Zetia), 10 MG PO DAILY, (Reported) Ferrous Sulfate (Ferrous Sulfate), 325 MG PO DAILY, (Reported) Hydralazine HCl (Hydralazine HCl), 50 MG PO TID, (Reported) Levothyroxine Sodium (Synthroid), 50 MCG PO DAILY, (Reported) Polyethylene Glycol 3350 (Miralax), 17 GRAM PO BID, (Reported) Spironolactone (Spironolactone), 25 MG PO DAILY, (Reported) Torsemide (Torsemide), 20 MG PO QAM, (Reported) Torsemide (Torsemide), 10 MG PO QPM, (Reported) Warfarin Sodium (Coumadin), 4 MG PO DAILY, (Reported) Scheduled PRN Acetaminophen (Acetaminophen), 2 TAB PO TIDP PRN for PAIN OR FEVER, (Reported) Albuterol Sulfate (Proair Hfa), 2 PUFF INH Q4-6HP PRN for wheezing, (Reported) Docusate Sodium (Colace), 100 MG PO BIDP PRN for CONSTIPATION, (Reported) Tramadol HCl (Tramadol HCl), 50 MG PO Q6HP PRN for pain, (Reported) Current BP 74 systolic lvad Med Change: No Intervention Education: S/S to report, Low NA diet, BP medication, RPE Scale, Equipment orientation Education Goals Met: No (progressing toward goals) Target Goals Individual exercise Rx (1) BP 140/90 or 130/80 if DM or CKD (1) Aerobic active 30+min 5 days per week (1) Nutrition Date: January 04, 2019 Assessment: Re-Assessment I Med Change: No Diabetes Diabetes: No Medication Change: No Current Weight (pounds): 279.8 Weight Goal 200 Intervention Dump Worker Consult: Yes (will see during this program) Nurse/patient discussion: Yes Referral to weight mangement p: Yes (will consult "Healthy Lifestyles") Education Goals Met: No (progressing toward goals) Target goal LDL-C<100 if triglycerides are >200 Non-HDL-C should be <130 (1) LDL-C<70 for high risk patients (4) HbA1c<7% (1) BMI<25 Waist cir<40in M/<35in F (1) Education Date: January 04, 2019 Assessment: Re-Assessment I Family Support: Yes Tobacco use: No Intervention Attended education classes: Yes Education: CAD, Risk factors Education Goals Met: No (progressing toward goals) Target Goals Complete cessation of tobacco use (1). Psychosocial Date: January 04, 2019 Assessment: Re-Assessment I Intervention Physician Consult: No Physician Referral: No Stress Management Class: Yes Uses Stress Management Skills: Yes Education Education: Coping Techniques, S/S depression, Relaxation Techniques Education Goals Met: Yes Target Goal Assess presence or absence of depression using a valid screening tool (1). Maximize coping skills (2). Positive support system (2). Provider Assessment Session Number: 5 Provider Assessment: No changes Lisbeth Hickman RN January 04, 2019 14:14
== END 2019-01-06 ==
LOC: M CR 10:42
PROVIDERS: ATTEND Internal Medicine
DX: Z95.811 Presence of heart assist device (principal)

== ENCOUNTER → 2019-01-09 | Outpatient (REF) | payer OTHER ==
[2019-01-09 13:13] LABS: CALCIUM LEVEL 8.9 MG/DL (8.5-10.1); CREATININE FOR GFR 1.31 MG/DL (0.70-1.30); MAGNESIUM LEVEL 2.5 MG/DL (1.8-2.4); POTASSIUM SERUM 4.1 MEQ/L (3.5-5.1)
[2019-01-09 13:16] LABS: HEMATOCRIT 45.4 % (42.0-52.0); HEMOGLOBIN 13.8 g/dl (13.5-17.5); MEAN CORPUSCULAR HEMOGLOBIN 24.9 pg (27.0-33.0); MEAN CORPUSCULAR HGB CONC 30.4 g/dl (32.0-36.5); MEAN CORPUSCULAR VOLUME 81.9 fl (80.0-96.0); PLATELET COUNT, AUTOMATED 234 10^3/uL (150-450); RED BLOOD COUNT 5.54 10^6/uL (4.30-6.10); WHITE BLOOD COUNT 8.4 10^3/uL (4.0-10.0)
[2019-01-09 13:39] LABS: INR 1.18; PROTHROMBIN TIME 15.2 SECONDS (12.1-14.4)
== END ==
LOC: M LABDRWAD 12:33
PROVIDERS: ATTEND Nurse Practitioner Acute Care
DX: Z95.811 Presence of heart assist device (principal)

== ENCOUNTER → 2019-01-16 | Outpatient (CLI) | payer OTHER ==
[2019-01-16 13:21] LABS: HEMATOCRIT 43.3 % (42.0-52.0); HEMOGLOBIN 13.3 g/dl (13.5-17.5); MEAN CORPUSCULAR HEMOGLOBIN 24.6 pg (27.0-33.0); MEAN CORPUSCULAR HGB CONC 30.7 g/dl (32.0-36.5); MEAN CORPUSCULAR VOLUME 80.2 fl (80.0-96.0); PLATELET COUNT, AUTOMATED 200 10^3/uL (150-450); WHITE BLOOD COUNT 8.9 10^3/uL (4.0-10.0)
[2019-01-16 13:23] LABS: CALCIUM LEVEL 9.4 MG/DL (8.5-10.1); CREATININE FOR GFR 1.41 MG/DL (0.70-1.30); GLOMERULAR FILTRATION RATE 55.2 (>56); MAGNESIUM LEVEL 2.3 MG/DL (1.8-2.4); POTASSIUM SERUM 3.9 MEQ/L (3.5-5.1)
[2019-01-16 13:28] LABS: INR 1.7; PROTHROMBIN TIME 20.3 SECONDS (12.1-14.4)
== END ==
LOC: M LABDRWAD 09:07
PROVIDERS: ATTEND Nurse Practitioner Acute Care
DX: Z95.811 Presence of heart assist device (principal)

== ENCOUNTER → 2019-01-23 | Outpatient (CLI) | payer OTHER ==
[2019-01-23 13:45] LABS: HEMATOCRIT 43.5 % (42.0-52.0); HEMOGLOBIN 13.2 g/dl (13.5-17.5); MEAN CORPUSCULAR HEMOGLOBIN 25.3 pg (27.0-33.0); MEAN CORPUSCULAR HGB CONC 30.3 g/dl (32.0-36.5); MEAN CORPUSCULAR VOLUME 83.3 fl (80.0-96.0); PLATELET COUNT, AUTOMATED 184 10^3/uL (150-450); RED BLOOD COUNT 5.22 10^6/uL (4.30-6.10); WHITE BLOOD COUNT 8.9 10^3/uL (4.0-10.0)
[2019-01-23 13:53] LABS: BLOOD UREA NITROGEN 21 MG/DL (7-18); CARBON DIOXIDE LEVEL 29 MEQ/L (21-32); CHLORIDE LEVEL 105 MEQ/L (98-107); CREATININE FOR GFR 1.13 MG/DL (0.70-1.30); GLOMERULAR FILTRATION RATE > 60.0 (>56); GLUCOSE, FASTING 100 MG/DL (70-100); LDH LACTATE DEHYDROGENASE 217 U/L (87-241); MAGNESIUM LEVEL 2.4 MG/DL (1.8-2.4); POTASSIUM SERUM 4.3 MEQ/L (3.5-5.1); SODIUM LEVEL 139 MEQ/L (136-145)
[2019-01-23 13:57] LABS: INR 1.46
== END ==
LOC: M ADAMS 09:03
PROVIDERS: ATTEND Nurse Practitioner Acute Care
DX: Z95.811 Presence of heart assist device (principal)

== ENCOUNTER 2019-01-30 10:56 | Outpatient (RCR) | payer OTHER | END 2019-02-05 | LOC: M CR 10:56 | PROVIDERS: ATTEND Internal Medicine | DX: Z95.811 Presence of heart assist device (principal) ==

== ENCOUNTER → 2019-01-30 | Outpatient (CLI) | payer OTHER ==
[2019-01-30 14:05] LABS: HEMATOCRIT 42.1 % (42.0-52.0); HEMOGLOBIN 12.9 g/dl (13.5-17.5); MEAN CORPUSCULAR HEMOGLOBIN 25.4 pg (27.0-33.0); MEAN CORPUSCULAR HGB CONC 30.6 g/dl (32.0-36.5); PLATELET COUNT, AUTOMATED 174 10^3/uL (150-450); RED BLOOD COUNT 5.07 10^6/uL (4.30-6.10)
[2019-01-30 14:13] LABS: BLOOD UREA NITROGEN 19 MG/DL (7-18); CALCIUM LEVEL 8.9 MG/DL (8.5-10.1); CARBON DIOXIDE LEVEL 29 MEQ/L (21-32); CHLORIDE LEVEL 106 MEQ/L (98-107); CREATININE FOR GFR 1.22 MG/DL (0.70-1.30); GLOMERULAR FILTRATION RATE > 60.0 (>56); GLUCOSE, FASTING 103 MG/DL (70-100); LDH LACTATE DEHYDROGENASE 236 U/L (87-241); MAGNESIUM LEVEL 2.4 MG/DL (1.8-2.4); POTASSIUM SERUM 4.1 MEQ/L (3.5-5.1); SODIUM LEVEL 141 MEQ/L (136-145)
[2019-01-30 14:16] LABS: INR 1.44; PROTHROMBIN TIME 17.3 SECONDS (11.8-14.0)
== END ==
LOC: M LABDRWAD 09:23
PROVIDERS: ATTEND Nurse Practitioner Acute Care
DX: Z95.811 Presence of heart assist device (principal)

== ENCOUNTER → 2019-02-06 | Outpatient (CLI) | payer OTHER ==
[2019-02-06 12:45] LABS: HEMATOCRIT 42.8 % (42.0-52.0); HEMOGLOBIN 13.2 g/dl (13.5-17.5); MEAN CORPUSCULAR HEMOGLOBIN 25.1 pg (27.0-33.0); MEAN CORPUSCULAR HGB CONC 30.8 g/dl (32.0-36.5); MEAN CORPUSCULAR VOLUME 81.5 fl (80.0-96.0); PLATELET COUNT, AUTOMATED 205 10^3/uL (150-450); RED BLOOD COUNT 5.25 10^6/uL (4.30-6.10); WHITE BLOOD COUNT 10.2 10^3/uL (4.0-10.0)
[2019-02-06 12:50] LABS: BLOOD UREA NITROGEN 19 MG/DL (7-18); CALCIUM LEVEL 9.1 MG/DL (8.5-10.1); CARBON DIOXIDE LEVEL 30 MEQ/L (21-32); CHLORIDE LEVEL 102 MEQ/L (98-107); CREATININE FOR GFR 1.18 MG/DL (0.70-1.30); GLOMERULAR FILTRATION RATE > 60.0 (>56); GLUCOSE, FASTING 93 MG/DL (70-100); LDH LACTATE DEHYDROGENASE 216 U/L (87-241); MAGNESIUM LEVEL 2.4 MG/DL (1.8-2.4); POTASSIUM SERUM 4.1 MEQ/L (3.5-5.1); SODIUM LEVEL 139 MEQ/L (136-145)
[2019-02-06 13:03] LABS: INR 2.07; PROTHROMBIN TIME 23.1 SECONDS (11.8-14.0)
== END ==
LOC: M ADAMS 09:05
PROVIDERS: ATTEND Nurse Practitioner Acute Care
DX: Z95.811 Presence of heart assist device (principal)

== ENCOUNTER → 2019-02-13 | Outpatient (REF) | payer SELFPAY ==
[2019-02-13 20:01] LABS: HEMATOCRIT 42.2 % (42.0-52.0); HEMOGLOBIN 13.4 g/dl (13.5-17.5); MEAN CORPUSCULAR HEMOGLOBIN 26.1 pg (27.0-33.0); MEAN CORPUSCULAR HGB CONC 31.8 g/dl (32.0-36.5); MEAN CORPUSCULAR VOLUME 82.1 fl (80.0-96.0); PLATELET COUNT, AUTOMATED 254 10^3/uL (150-450); RED BLOOD COUNT 5.14 10^6/uL (4.30-6.10); WHITE BLOOD COUNT 8.9 10^3/uL (4.0-10.0)
[2019-02-13 20:18] LABS: BLOOD UREA NITROGEN 14 MG/DL (7-18); CALCIUM LEVEL 9.3 MG/DL (8.5-10.1); CARBON DIOXIDE LEVEL 27 MEQ/L (21-32); CHLORIDE LEVEL 104 MEQ/L (98-107); CREATININE FOR GFR 1.19 MG/DL (0.70-1.30); GLOMERULAR FILTRATION RATE > 60.0 (>56); GLUCOSE, FASTING 63 MG/DL (70-100); INR 2.15; LDH LACTATE DEHYDROGENASE 239 U/L (87-241); NT-PRO BNP 529 PG/ML (<125); POTASSIUM SERUM 4.3 MEQ/L (3.5-5.1); PROTHROMBIN TIME 23.8 SECONDS (11.8-14.0); SODIUM LEVEL 140 MEQ/L (136-145)
== END ==
LOC: M LABDRWAD 19:20
PROVIDERS: ATTEND Nurse Practitioner Acute Care
DX: Z95.811 Presence of heart assist device (principal)

== ENCOUNTER → 2019-02-20 | Outpatient (REF) | payer SELFPAY ==
[2019-02-20 13:26] LABS: HEMATOCRIT 43.7 % (42.0-52.0); HEMOGLOBIN 13.9 g/dl (13.5-17.5); MEAN CORPUSCULAR HEMOGLOBIN 26.2 pg (27.0-33.0); MEAN CORPUSCULAR HGB CONC 31.8 g/dl (32.0-36.5); MEAN CORPUSCULAR VOLUME 82.3 fl (80.0-96.0); PLATELET COUNT, AUTOMATED 232 10^3/uL (150-450); RED BLOOD COUNT 5.31 10^6/uL (4.30-6.10); WHITE BLOOD COUNT 8.1 10^3/uL (4.0-10.0)
[2019-02-20 13:36] LABS: INR 2.08; PROTHROMBIN TIME 23.1 SECONDS (11.8-14.0)
[2019-02-20 13:55] LABS: CALCIUM LEVEL 8.8 MG/DL (8.5-10.1); CREATININE FOR GFR 1.36 MG/DL (0.70-1.30); GLOMERULAR FILTRATION RATE 57.3 (>56); MAGNESIUM LEVEL 2.1 MG/DL (1.8-2.4); POTASSIUM SERUM 3.8 MEQ/L (3.5-5.1)
== END ==
LOC: M LABDRWAD 12:34
PROVIDERS: ATTEND Nurse Practitioner Acute Care
DX: Z95.811 Presence of heart assist device (principal)

== ENCOUNTER 2019-02-27 15:10 | Outpatient (RCR) | payer OTHER, SELFPAY ==
--- NOTE | 2019-02-06 15:08 | CARECAPL ---
Assessment Account #s: Re-Assessment II (lvad-DrVidula) General Date of event: Aug 04, 2018 Physician: Guille Araya Allergies: Coded Allergies: MS - No Known Drug Allergy (Verified Allergy, Unknown, 11/15/12) Date Entered Program: December 08, 2018 Risk strat for cardiac event: High Exercise Date: Feb 06, 2019 Assessment: Re-Assessment II Exercise Prescription Modalities initiated: Treadmill (2.4/1.0 mts 3.17 rpe 3), Nustep (L4 mts 2.7 rpe 3), Arm Aerometer (3.0 mts 2.7 rpe 3), Dumbells, Recumbent Bike (r5 mts 6.1 rpe 3) Frequency: 2 Duration (Minutes) 30-60 minutes total exercise a day. 5-15 work intervals in minutes. rest intervals in minutes. Functional Capacity Goal Sustained Metabolic Equivalent of a task (MET) goal of for minutes. Progression (METS) Increase by: .5 METS every: 2-3 sessions Weight (pounds): 4 Reps: 6-8 Medications Scheduled Allopurinol (Allopurinol), 100 MG PO DAILY, (Reported) Aspirin (Aspir 81), 81 MG PO DAILY, (Reported) Atorvastatin Calcium (Lipitor), 80 MG PO DAILY, (Reported) Escitalopram Oxalate (Lexapro), 20 MG PO DAILY, (Reported) Ezetimibe (Zetia), 10 MG PO DAILY, (Reported) Ferrous Sulfate (Ferrous Sulfate), 325 MG PO DAILY, (Reported) Hydralazine HCl (Hydralazine HCl), 50 MG PO TID, (Reported) Levothyroxine Sodium (Synthroid), 50 MCG PO DAILY, (Reported) Polyethylene Glycol 3350 (Miralax), 17 GRAM PO BID, (Reported) Spironolactone (Spironolactone), 25 MG PO DAILY, (Reported) Torsemide (Torsemide), 20 MG PO QAM, (Reported) Torsemide (Torsemide), 10 MG PO QPM, (Reported) Warfarin Sodium (Coumadin), 4 MG PO DAILY, (Reported) Scheduled PRN Acetaminophen (Acetaminophen), 2 TAB PO TIDP PRN for PAIN OR FEVER, (Reported) Albuterol Sulfate (Proair Hfa), 2 PUFF INH Q4-6HP PRN for wheezing, (Reported) Docusate Sodium (Colace), 100 MG PO BIDP PRN for CONSTIPATION, (Reported) Tramadol HCl (Tramadol HCl), 50 MG PO Q6HP PRN for pain, (Reported) Current BP 80 sys Med Change: No Intervention Education: Self pulse, Ex safety, S/S to report, Low NA diet, BP medication, RPE Scale, Equipment orientation, warm up/cool down, Understand BP, Physical Active Education Goals Met: No (progressing toward goals) Target Goals Individual exercise Rx (1) BP 140/90 or 130/80 if DM or CKD (1) Aerobic active 30+min 5 days per week (1) Nutrition Date: Feb 06, 2019 Assessment: Re-Assessment II Current Weight (pounds): 269.8 Intervention Nurse/patient discussion: Yes Education Eating Healthy Education Goals Met: No (progressing toward goals) Target goal LDL-C<100 if triglycerides are >200 Non-HDL-C should be <130 (1) LDL-C<70 for high risk patients (4) HbA1c<7% (1) BMI<25 Waist cir<40in M/<35in F (1) Education Date: Feb 06, 2019 Assessment: Re-Assessment II Intervention Education class schedule given: Yes Attended education classes: Yes Education: Risk factors, med compliance, cardiac A&P, Angina S/S Education Goals Met: No (progressing toward goals) Target Goals Complete cessation of tobacco use (1). Psychosocial Date: Feb 06, 2019 Stress Management Class: Yes Uses Stress Management Skills: Yes Education Education: Coping Techniques, S/S depression Education Goals Met: No (progressing toward goals) Target Goal Assess presence or absence of depression using a valid screening tool (1). Maximize coping skills (2). Positive support system (2). Provider Assessment Session Number: 11 Provider Assessment: No changes Lisbeth Hickman RN Feb 06, 2019 15:08
--- NOTE | 2019-02-27 15:55 | CARECAPL ---
Assessment Account #s: Re-Assessment II (DISCHARGE ) General Diagnoses: CHF (LVAD - DR. VILLA) Date of event: Aug 04, 2018 Physician: Guille Araya Allergies: Coded Allergies: MS - No Known Drug Allergy (Verified Allergy, Unknown, 11/15/12) Date Entered Program: December 08, 2018 Risk strat for cardiac event: High Exercise Assessment: Followup/Discharge Exercise Prescription Plan TO EDUCATE AND BUILD ENDURANCE THROUGH MONITORED EXERCISE PROGRAM Modalities initiated: Treadmill (METS=3.53/RPE=3), Nustep (METS=4.9/RPE=3), Dumbells, Recumbent Bike (METS=6.6/RPE=3) Frequency: 3 Duration (Minutes) 30-60 minutes total exercise a day. 10-12 work intervals in minutes. 5 rest intervals in minutes. Functional Capacity Goal Sustained Metabolic Equivalent of a task (MET) goal of 2.5-3.5 for 15-20 minutes. Intensity: 3-Moderate Progression (METS) Increase by: METS every: sessions Angina with ex: No Weight (pounds): 280 Reps: 12-15 Hypertension: Yes Hypertension controlled with: Medication Resting 96 Peak Exercise BP 114 Medications Scheduled Allopurinol (Allopurinol), 100 MG PO DAILY, (Reported) Aspirin (Aspir 81), 81 MG PO DAILY, (Reported) Atorvastatin Calcium (Lipitor), 80 MG PO DAILY, (Reported) Escitalopram Oxalate (Lexapro), 20 MG PO DAILY, (Reported) Ezetimibe (Zetia), 10 MG PO DAILY, (Reported) Ferrous Sulfate (Ferrous Sulfate), 325 MG PO DAILY, (Reported) Hydralazine HCl (Hydralazine HCl), 50 MG PO TID, (Reported) Levothyroxine Sodium (Synthroid), 50 MCG PO DAILY, (Reported) Polyethylene Glycol 3350 (Miralax), 17 GRAM PO BID, (Reported) Spironolactone (Spironolactone), 25 MG PO DAILY, (Reported) Torsemide (Torsemide), 20 MG PO QAM, (Reported) Torsemide (Torsemide), 10 MG PO QPM, (Reported) Warfarin Sodium (Coumadin), 4 MG PO DAILY, (Reported) Scheduled PRN Acetaminophen (Acetaminophen), 2 TAB PO TIDP PRN for PAIN OR FEVER, (Reported) Albuterol Sulfate (Proair Hfa), 2 PUFF INH Q4-6HP PRN for wheezing, (Reported) Docusate Sodium (Colace), 100 MG PO BIDP PRN for CONSTIPATION, (Reported) Tramadol HCl (Tramadol HCl), 50 MG PO Q6HP PRN for pain, (Reported) Current BP 70 Med Change: No Intervention Home exercise: Type (WALKING/MEET PROGRAM), Frequency (3-5 DAYS/WEEK), Duration (30-60 MINUTES) Resistance Training: Yes Education: Self pulse, Ex safety, S/S to report, Low NA diet, BP medication, RPE Scale, Equipment orientation, warm up/cool down, Understand BP, Physical Active Education Goals Met: Yes Target Goals Individual exercise Rx (1) BP 140/90 or 130/80 if DM or CKD (1) Aerobic active 30+min 5 days per week (1) Nutrition Date: Feb 27, 2019 Assessment: Followup/Discharge Lipid- med/supplement ATORVASTATIN 80 MG DAILY Med Change: No Diabetes Diabetes: No Monitor Blood Sugar at home: No Medication Change: No Blood sugar in range: No Weight Management Weight (lbs): 280 Waist Circumference (Inches): 48 BMI: 37.99 Special Diet: low salt, low-fat Diet Access Tool: Rate your plate Score: 64 Current Weight (pounds): 280 Intervention Platform Stapler Consult: Yes (SAW BATTERY CHARGER WHILE IN PROGRAM) Nurse/patient discussion: Yes Dietary Goals MORE FRUITS, HEART HEALTHY DIET Diet Class: Yes Referral to Diabetes education: No Referral to lipid clinic: No Referral to weight mangement p: No Education Eating Healthy Education Goals Met: Yes Target goal LDL-C<100 if triglycerides are >200 Non-HDL-C should be <130 (1) LDL-C<70 for high risk patients (4) HbA1c<7% (1) BMI<25 Waist cir<40in M/<35in F (1) Education Date: Feb 27, 2019 Assessment: Followup/Discharge Learning Barriers: ready Knowledge Test Score: 10 Family Support: Yes Tobacco use: No Tobacco Use Smokeless tobacco: No Intervention Referral to smoking cessation: No Individual education and couns: No Tobacco Adjunct: No Education class schedule given: No Attended education classes: No Education: CAD, Risk factors, med compliance, cardiac A&P, Angina S/S, Sexuality Education Goals Met: Yes Target Goals Complete cessation of tobacco use (1). Psychosocial Date: Feb 27, 2019 Assessment: Followup/Discharge Psych Test (Initial/Discharge) Tool Used: CESD Score: 5 Intervention Physician Consult: No Physician Referral: No Med Change: No Stress Management Class: No Uses Stress Management Skills: Yes Education Education: Coping Techniques, S/S depression, Relaxation Techniques Education Goals Met: Yes Target Goal Assess presence or absence of depression using a valid screening tool (1). Maximize coping skills (2). Positive support system (2). Patient/Program Goal Preventative Medication: Yes Aspirin, Yes Statin/OTR lipid Lowering Fall Risk Assess: Yes (NOT A FALL RISK) Provider Assessment Session Number: 17 Jsoe Rosen RN Feb 27, 2019 15:55
== END 2019-03-08 ==
LOC: M CR 15:10
PROVIDERS: ATTEND Internal Medicine
DX: Z95.811 Presence of heart assist device (principal)

== ENCOUNTER → 2019-02-27 | Outpatient (REF) | payer SELFPAY ==
[2019-02-27 19:56] LABS: HEMATOCRIT 46.9 % (42.0-52.0); HEMOGLOBIN 14.7 g/dl (13.5-17.5); MEAN CORPUSCULAR HGB CONC 31.3 g/dl (32.0-36.5); PLATELET COUNT, AUTOMATED 222 10^3/uL (150-450); RED BLOOD COUNT 5.65 10^6/uL (4.30-6.10); WHITE BLOOD COUNT 10.5 10^3/uL (4.0-10.0)
[2019-02-27 20:03] LABS: CALCIUM LEVEL 9.3 MG/DL (8.5-10.1); CREATININE FOR GFR 1.45 MG/DL (0.70-1.30); GLOMERULAR FILTRATION RATE 53.2 (>56); MAGNESIUM LEVEL 2.1 MG/DL (1.8-2.4); POTASSIUM SERUM 3.9 MEQ/L (3.5-5.1)
[2019-02-27 20:06] LABS: PROTHROMBIN TIME 22.5 SECONDS (11.8-14.0)
== END ==
LOC: M LABDRWAD 19:28
PROVIDERS: ATTEND Nurse Practitioner Acute Care
DX: Z95.811 Presence of heart assist device (principal)

== ENCOUNTER → 2019-03-08 | Outpatient (REF) | payer SELFPAY ==
[2019-03-08 19:46] LABS: HEMATOCRIT 45.2 % (42.0-52.0); HEMOGLOBIN 14.2 g/dl (13.5-17.5); MEAN CORPUSCULAR HEMOGLOBIN 26.9 pg (27.0-33.0); MEAN CORPUSCULAR HGB CONC 31.4 g/dl (32.0-36.5); MEAN CORPUSCULAR VOLUME 85.6 fl (80.0-96.0); PLATELET COUNT, AUTOMATED 188 10^3/uL (150-450); RED BLOOD COUNT 5.28 10^6/uL (4.30-6.10); WHITE BLOOD COUNT 7.9 10^3/uL (4.0-10.0)
[2019-03-08 19:58] LABS: PROTHROMBIN TIME 22.5 SECONDS (11.8-14.0)
[2019-03-08 20:00] LABS: BLOOD UREA NITROGEN 19 MG/DL (7-18); CALCIUM LEVEL 9.2 MG/DL (8.5-10.1); CARBON DIOXIDE LEVEL 31 MEQ/L (21-32); CHLORIDE LEVEL 105 MEQ/L (98-107); CREATININE FOR GFR 1.18 MG/DL (0.70-1.30); GLOMERULAR FILTRATION RATE > 60.0 (>56); GLUCOSE, FASTING 95 MG/DL (70-100); LDH LACTATE DEHYDROGENASE 205 U/L (87-241); MAGNESIUM LEVEL 2.4 MG/DL (1.8-2.4); POTASSIUM SERUM 4.5 MEQ/L (3.5-5.1); SODIUM LEVEL 142 MEQ/L (136-145)
== END ==
LOC: M LABDRWAD 19:02
PROVIDERS: ATTEND Nurse Practitioner Acute Care
DX: Z95.811 Presence of heart assist device (principal)

== ENCOUNTER → 2019-03-13 | Outpatient (REF) | payer SELFPAY ==
[2019-03-13 14:14] LABS: HEMATOCRIT 42.8 % (42.0-52.0); HEMOGLOBIN 13.7 g/dl (13.5-17.5); MEAN CORPUSCULAR HEMOGLOBIN 26.4 pg (27.0-33.0); MEAN CORPUSCULAR VOLUME 82.5 fl (80.0-96.0); PLATELET COUNT, AUTOMATED 193 10^3/uL (150-450); RED BLOOD COUNT 5.19 10^6/uL (4.30-6.10); WHITE BLOOD COUNT 11.2 10^3/uL (4.0-10.0)
[2019-03-13 14:23] LABS: INR 2.39; PROTHROMBIN TIME 25.9 SECONDS (11.8-14.0)
[2019-03-13 14:40] LABS: CALCIUM LEVEL 8.9 MG/DL (8.5-10.1); CREATININE FOR GFR 1.41 MG/DL (0.70-1.30); MAGNESIUM LEVEL 2.5 MG/DL (1.8-2.4); POTASSIUM SERUM 3.6 MEQ/L (3.5-5.1)
== END ==
LOC: M LABDRWAD 12:59
PROVIDERS: ATTEND Nurse Practitioner Acute Care
DX: Z95.811 Presence of heart assist device (principal)

== ENCOUNTER → 2019-03-20 | Outpatient (REF) | payer OTHER, SELFPAY ==
[~2019-03-20] MED LIST changes: +ZETI10TA16 PO; -ZETI10TA30 PO
[2019-03-20 19:40] LABS: HEMATOCRIT 46.1 % (42.0-52.0); HEMOGLOBIN 14.5 g/dl (13.5-17.5); MEAN CORPUSCULAR HEMOGLOBIN 27.3 pg (27.0-33.0); MEAN CORPUSCULAR HGB CONC 31.5 g/dl (32.0-36.5); MEAN CORPUSCULAR VOLUME 86.7 fl (80.0-96.0); PLATELET COUNT, AUTOMATED 168 10^3/uL (150-450); RED BLOOD COUNT 5.32 10^6/uL (4.30-6.10); WHITE BLOOD COUNT 9.5 10^3/uL (4.0-10.0)
[2019-03-20 19:52] LABS: INR 1.42; PROTHROMBIN TIME 17.1 SECONDS (11.8-14.0)
[2019-03-20 20:01] LABS: BLOOD UREA NITROGEN 20 MG/DL (7-18); CALCIUM LEVEL 8.6 MG/DL (8.5-10.1); CARBON DIOXIDE LEVEL 32 MEQ/L (21-32); CHLORIDE LEVEL 103 MEQ/L (98-107); CREATININE FOR GFR 1.29 MG/DL (0.70-1.30); GLOMERULAR FILTRATION RATE > 60.0 (>56); GLUCOSE, FASTING 90 MG/DL (70-100); LDH LACTATE DEHYDROGENASE 214 U/L (87-241); MAGNESIUM LEVEL 2.4 MG/DL (1.8-2.4); POTASSIUM SERUM 4.2 MEQ/L (3.5-5.1); SODIUM LEVEL 141 MEQ/L (136-145)
== END ==
LOC: M LABDRWAD 19:02
PROVIDERS: ATTEND Nurse Practitioner Acute Care
DX: Z95.811 Presence of heart assist device (principal)

== ENCOUNTER → 2019-03-28 | Outpatient (REF) | payer OTHER ==
[2019-03-28 13:10] LABS: HEMATOCRIT 46.5 % (42.0-52.0); HEMOGLOBIN 14.8 g/dl (13.5-17.5); MEAN CORPUSCULAR HEMOGLOBIN 27.2 pg (27.0-33.0); MEAN CORPUSCULAR HGB CONC 31.8 g/dl (32.0-36.5); MEAN CORPUSCULAR VOLUME 85.5 fl (80.0-96.0); PLATELET COUNT, AUTOMATED 169 10^3/uL (150-450); RED BLOOD COUNT 5.44 10^6/uL (4.30-6.10); WHITE BLOOD COUNT 8.1 10^3/uL (4.0-10.0)
[2019-03-28 13:19] LABS: BLOOD UREA NITROGEN 17 MG/DL (7-18); CALCIUM LEVEL 9.1 MG/DL (8.5-10.1); CARBON DIOXIDE LEVEL 30 MEQ/L (21-32); CHLORIDE LEVEL 104 MEQ/L (98-107); CREATININE FOR GFR 1.28 MG/DL (0.70-1.30); GLOMERULAR FILTRATION RATE > 60.0 (>56); GLUCOSE, FASTING 106 MG/DL (70-100); LDH LACTATE DEHYDROGENASE 244 U/L (87-241); MAGNESIUM LEVEL 2.4 MG/DL (1.8-2.4); POTASSIUM SERUM 4.4 MEQ/L (3.5-5.1); SODIUM LEVEL 138 MEQ/L (136-145)
[2019-03-28 13:20] LABS: INR 2.19; PROTHROMBIN TIME 24.2 SECONDS (11.8-14.0)
== END ==
LOC: M LABDRWAD 12:26
PROVIDERS: ATTEND Nurse Practitioner Acute Care
DX: Z95.811 Presence of heart assist device (principal); Z79.01 Long term (current) use of anticoagulants; Z79.51 Long term (current) use of inhaled steroids; Z79.82 Long term (current) use of aspirin; Z79.899 Other long term (current) drug therapy

== ENCOUNTER → 2019-04-03 | Outpatient (REF) | payer OTHER ==
[2019-04-03 19:47] LABS: HEMATOCRIT 44.6 % (42.0-52.0); HEMOGLOBIN 14.2 g/dl (13.5-17.5); MEAN CORPUSCULAR HEMOGLOBIN 27.7 pg (27.0-33.0); MEAN CORPUSCULAR HGB CONC 31.8 g/dl (32.0-36.5); MEAN CORPUSCULAR VOLUME 86.9 fl (80.0-96.0); PLATELET COUNT, AUTOMATED 175 10^3/uL (150-450); RED BLOOD COUNT 5.13 10^6/uL (4.30-6.10); WHITE BLOOD COUNT 6.8 10^3/uL (4.0-10.0)
[2019-04-03 19:50] LABS: BLOOD UREA NITROGEN 18 MG/DL (7-18); CALCIUM LEVEL 8.7 MG/DL (8.5-10.1); CARBON DIOXIDE LEVEL 29 MEQ/L (21-32); CHLORIDE LEVEL 104 MEQ/L (98-107); CREATININE FOR GFR 1.17 MG/DL (0.70-1.30); GLOMERULAR FILTRATION RATE > 60.0 (>56); GLUCOSE, FASTING 96 MG/DL (70-100); LDH LACTATE DEHYDROGENASE 227 U/L (87-241); MAGNESIUM LEVEL 2.3 MG/DL (1.8-2.4); POTASSIUM SERUM 4.4 MEQ/L (3.5-5.1); SODIUM LEVEL 140 MEQ/L (136-145)
[2019-04-03 19:57] LABS: INR 2.07; PROTHROMBIN TIME 23.1 SECONDS (11.8-14.0)
== END ==
LOC: M LABDRWAD 19:05
PROVIDERS: ATTEND Nurse Practitioner Acute Care
DX: Z95.811 Presence of heart assist device (principal)

== ENCOUNTER → 2019-04-11 | Outpatient (REF) | payer OTHER ==
[2019-04-11 13:53] LABS: HEMOGLOBIN 14.9 g/dl (13.5-17.5); MEAN CORPUSCULAR HEMOGLOBIN 27.6 pg (27.0-33.0); MEAN CORPUSCULAR HGB CONC 31.7 g/dl (32.0-36.5); MEAN CORPUSCULAR VOLUME 87.2 fl (80.0-96.0); PLATELET COUNT, AUTOMATED 194 10^3/uL (150-450); RED BLOOD COUNT 5.39 10^6/uL (4.30-6.10)
[2019-04-11 13:57] LABS: CALCIUM LEVEL 8.7 MG/DL (8.5-10.1); CREATININE FOR GFR 1.34 MG/DL (0.70-1.30); GLOMERULAR FILTRATION RATE 58.3 (>56); MAGNESIUM LEVEL 2.1 MG/DL (1.8-2.4); POTASSIUM SERUM 4.3 MEQ/L (3.5-5.1)
[2019-04-11 14:08] LABS: INR 1.75; PROTHROMBIN TIME 20.2 SECONDS (11.8-14.0)
== END ==
LOC: M LABDRWAD 12:46
PROVIDERS: ATTEND Nurse Practitioner Acute Care
DX: Z95.811 Presence of heart assist device (principal)

== ENCOUNTER → 2019-04-17 | Outpatient (REF) | payer OTHER ==
[2019-04-17 14:08] LABS: HEMATOCRIT 46.1 % (42.0-52.0); HEMOGLOBIN 14.8 g/dl (13.5-17.5); MEAN CORPUSCULAR HEMOGLOBIN 27.4 pg (27.0-33.0); MEAN CORPUSCULAR HGB CONC 32.1 g/dl (32.0-36.5); MEAN CORPUSCULAR VOLUME 85.2 fl (80.0-96.0); PLATELET COUNT, AUTOMATED 184 10^3/uL (150-450); RED BLOOD COUNT 5.41 10^6/uL (4.30-6.10); WHITE BLOOD COUNT 10.4 10^3/uL (4.0-10.0)
[2019-04-17 14:20] LABS: INR 1.75; PROTHROMBIN TIME 20.2 SECONDS (11.8-14.0)
[2019-04-17 14:22] LABS: CALCIUM LEVEL 9.3 MG/DL (8.5-10.1); CREATININE FOR GFR 1.45 MG/DL (0.70-1.30); GLOMERULAR FILTRATION RATE 53.2 (>56); MAGNESIUM LEVEL 2.3 MG/DL (1.8-2.4); POTASSIUM SERUM 3.8 MEQ/L (3.5-5.1)
== END ==
LOC: M LABDRWAD 12:45
PROVIDERS: ATTEND Nurse Practitioner Acute Care
DX: Z95.811 Presence of heart assist device (principal)

== ENCOUNTER → 2019-04-26 | Outpatient (REF) | payer OTHER ==
[2019-04-26 13:20] LABS: HEMATOCRIT 44.9 % (42.0-52.0); HEMOGLOBIN 14.6 g/dl (13.5-17.5); MEAN CORPUSCULAR HEMOGLOBIN 27.6 pg (27.0-33.0); MEAN CORPUSCULAR HGB CONC 32.5 g/dl (32.0-36.5); MEAN CORPUSCULAR VOLUME 84.9 fl (80.0-96.0); PLATELET COUNT, AUTOMATED 200 10^3/uL (150-450); RED BLOOD COUNT 5.29 10^6/uL (4.30-6.10); WHITE BLOOD COUNT 7.2 10^3/uL (4.0-10.0)
[2019-04-26 13:33] LABS: CALCIUM LEVEL 9.1 MG/DL (8.5-10.1); CREATININE FOR GFR 1.42 MG/DL (0.70-1.30); GLOMERULAR FILTRATION RATE 54.5 (>56); MAGNESIUM LEVEL 2.1 MG/DL (1.8-2.4)
[2019-04-26 13:48] LABS: INR 1.36; PROTHROMBIN TIME 16.5 SECONDS (11.8-14.0)
== END ==
LOC: M LABDRWAD 12:15
PROVIDERS: ATTEND Nurse Practitioner Acute Care
DX: Z95.811 Presence of heart assist device (principal)

== ENCOUNTER → 2019-05-03 | Outpatient (REF) | payer OTHER ==
[2019-05-03 13:34] LABS: HEMATOCRIT 44.9 % (42.0-52.0); HEMOGLOBIN 14.4 g/dl (13.5-17.5); MEAN CORPUSCULAR HEMOGLOBIN 28.2 pg (27.0-33.0); MEAN CORPUSCULAR HGB CONC 32.1 g/dl (32.0-36.5); MEAN CORPUSCULAR VOLUME 87.9 fl (80.0-96.0); PLATELET COUNT, AUTOMATED 187 10^3/uL (150-450); RED BLOOD COUNT 5.11 10^6/uL (4.30-6.10); WHITE BLOOD COUNT 7.3 10^3/uL (4.0-10.0)
[2019-05-03 13:45] LABS: INR 1.64; PROTHROMBIN TIME 19.2 SECONDS (11.8-14.0)
[2019-05-03 13:49] LABS: CALCIUM LEVEL 8.8 MG/DL (8.5-10.1); CREATININE FOR GFR 1.34 MG/DL (0.70-1.30); GLOMERULAR FILTRATION RATE 58.3 (>56); MAGNESIUM LEVEL 2.1 MG/DL (1.8-2.4); POTASSIUM SERUM 4.3 MEQ/L (3.5-5.1)
== END ==
LOC: M LABDRWAD 12:17
PROVIDERS: ATTEND Nurse Practitioner Acute Care
DX: Z95.811 Presence of heart assist device (principal)

== ENCOUNTER → 2019-05-08 | Outpatient (REF) | payer OTHER ==
[2019-05-08 15:18] LABS: HEMATOCRIT 45.2 % (42.0-52.0); HEMOGLOBIN 14.6 g/dl (13.5-17.5); MEAN CORPUSCULAR HEMOGLOBIN 28.3 pg (27.0-33.0); MEAN CORPUSCULAR HGB CONC 32.3 g/dl (32.0-36.5); MEAN CORPUSCULAR VOLUME 87.6 fl (80.0-96.0); PLATELET COUNT, AUTOMATED 181 10^3/uL (150-450); RED BLOOD COUNT 5.16 10^6/uL (4.30-6.10); WHITE BLOOD COUNT 9.2 10^3/uL (4.0-10.0)
[2019-05-08 15:19] LABS: CALCIUM LEVEL 9.1 MG/DL (8.5-10.1); CREATININE FOR GFR 1.34 MG/DL (0.70-1.30); GLOMERULAR FILTRATION RATE 58.3 (>56)
[2019-05-08 15:36] LABS: INR 1.51; PROTHROMBIN TIME 17.9 SECONDS (11.8-14.0)
== END ==
LOC: M LAB REF 14:27
PROVIDERS: ATTEND Nurse Practitioner Acute Care
DX: Z95.811 Presence of heart assist device (principal)

== ENCOUNTER → 2019-05-15 | Outpatient (CLI) | payer OTHER ==
[2019-05-15 14:12] LABS: HEMATOCRIT 44.5 % (42.0-52.0); HEMOGLOBIN 14.7 g/dl (13.5-17.5); MEAN CORPUSCULAR VOLUME 87.8 fl (80.0-96.0); PLATELET COUNT, AUTOMATED 200 10^3/uL (150-450); RED BLOOD COUNT 5.07 10^6/uL (4.30-6.10); WHITE BLOOD COUNT 7.6 10^3/uL (4.0-10.0)
[2019-05-15 14:23] LABS: INR 1.86; PROTHROMBIN TIME 21.2 SECONDS (11.8-14.0)
[2019-05-15 14:36] LABS: BLOOD UREA NITROGEN 22 MG/DL (7-18); CARBON DIOXIDE LEVEL 29 MEQ/L (21-32); CHLORIDE LEVEL 104 MEQ/L (98-107); GLOMERULAR FILTRATION RATE > 60.0 (>56); GLUCOSE, FASTING 67 MG/DL (70-100); LDH LACTATE DEHYDROGENASE 242 U/L (87-241); MAGNESIUM LEVEL 2.1 MG/DL (1.8-2.4); POTASSIUM SERUM 4.3 MEQ/L (3.5-5.1); SODIUM LEVEL 140 MEQ/L (136-145)
== END ==
LOC: M ADAMS 10:40
PROVIDERS: ATTEND Nurse Practitioner Acute Care
DX: Z95.811 Presence of heart assist device (principal)

== ENCOUNTER → 2019-05-22 | Outpatient (REF) | payer OTHER ==
[2019-05-22 13:54] LABS: CALCIUM LEVEL 9.3 MG/DL (8.5-10.1); CREATININE FOR GFR 1.33 MG/DL (0.70-1.30); GLOMERULAR FILTRATION RATE 58.8 (>56); MAGNESIUM LEVEL 2.2 MG/DL (1.8-2.4); POTASSIUM SERUM 4.4 MEQ/L (3.5-5.1)
[2019-05-22 13:56] LABS: HEMATOCRIT 47.8 % (42.0-52.0); HEMOGLOBIN 15.1 g/dl (13.5-17.5); MEAN CORPUSCULAR HEMOGLOBIN 27.9 pg (27.0-33.0); MEAN CORPUSCULAR HGB CONC 31.6 g/dl (32.0-36.5); MEAN CORPUSCULAR VOLUME 88.4 fl (80.0-96.0); PLATELET COUNT, AUTOMATED 215 10^3/uL (150-450); RED BLOOD COUNT 5.41 10^6/uL (4.30-6.10); WHITE BLOOD COUNT 8.5 10^3/uL (4.0-10.0)
[2019-05-22 14:03] LABS: INR 2.23; PROTHROMBIN TIME 24.5 SECONDS (11.8-14.0)
== END ==
LOC: M LABDRWAD 12:46
PROVIDERS: ATTEND Nurse Practitioner Acute Care
DX: Z95.811 Presence of heart assist device (principal)

== ENCOUNTER → 2019-06-07 | Outpatient (REF) | payer OTHER ==
[2019-06-07 14:24] LABS: HEMATOCRIT 46.3 % (42.0-52.0); HEMOGLOBIN 14.8 g/dl (13.5-17.5); MEAN CORPUSCULAR HEMOGLOBIN 28.7 pg (27.0-33.0); MEAN CORPUSCULAR VOLUME 89.9 fl (80.0-96.0); PLATELET COUNT, AUTOMATED 189 10^3/uL (150-450); RED BLOOD COUNT 5.15 10^6/uL (4.30-6.10); WHITE BLOOD COUNT 7.6 10^3/uL (4.0-10.0)
[2019-06-07 14:37] LABS: INR 2.28; PROTHROMBIN TIME 24.9 SECONDS (11.8-14.0)
[2019-06-07 14:47] LABS: CALCIUM LEVEL 8.9 MG/DL (8.5-10.1); CREATININE FOR GFR 1.51 MG/DL (0.70-1.30); GLOMERULAR FILTRATION RATE 50.8 (>56); MAGNESIUM LEVEL 1.9 MG/DL (1.8-2.4); POTASSIUM SERUM 4.2 MEQ/L (3.5-5.1)
== END ==
LOC: M LABDRWAD 12:41
PROVIDERS: ATTEND Nurse Practitioner Acute Care
DX: Z95.811 Presence of heart assist device (principal)

== ENCOUNTER → 2019-06-20 | Outpatient (REF) | payer OTHER ==
[2019-06-20 12:51] LABS: HEMATOCRIT 47.7 % (42.0-52.0); HEMOGLOBIN 15.3 g/dl (13.5-17.5); MEAN CORPUSCULAR HEMOGLOBIN 28.8 pg (27.0-33.0); MEAN CORPUSCULAR HGB CONC 32.1 g/dl (32.0-36.5); MEAN CORPUSCULAR VOLUME 89.7 fl (80.0-96.0); PLATELET COUNT, AUTOMATED 188 10^3/uL (150-450); RED BLOOD COUNT 5.32 10^6/uL (4.30-6.10); WHITE BLOOD COUNT 7.1 10^3/uL (4.0-10.0)
[2019-06-20 13:05] LABS: INR 1.93; PROTHROMBIN TIME 21.8 SECONDS (11.8-14.0)
[2019-06-20 13:15] LABS: CALCIUM LEVEL 9.2 MG/DL (8.5-10.1); CREATININE FOR GFR 1.39 MG/DL (0.70-1.30); GLOMERULAR FILTRATION RATE 55.9 (>56); POTASSIUM SERUM 4.1 MEQ/L (3.5-5.1)
== END ==
LOC: M LAB REF 12:27 → M LABDRWAD 12:27
PROVIDERS: ATTEND Nurse Practitioner Acute Care
DX: Z95.811 Presence of heart assist device (principal)

== ENCOUNTER → 2019-06-27 | Outpatient (REF) | payer OTHER ==
[2019-06-27 13:33] LABS: HEMATOCRIT 46.7 % (42.0-52.0); HEMOGLOBIN 15.1 g/dl (13.5-17.5); MEAN CORPUSCULAR HGB CONC 32.3 g/dl (32.0-36.5); MEAN CORPUSCULAR VOLUME 89.6 fl (80.0-96.0); PLATELET COUNT, AUTOMATED 191 10^3/uL (150-450); RED BLOOD COUNT 5.21 10^6/uL (4.30-6.10); WHITE BLOOD COUNT 6.6 10^3/uL (4.0-10.0)
[2019-06-27 13:38] LABS: INR 2.59; PROTHROMBIN TIME 27.6 SECONDS (11.8-14.0)
== END ==
LOC: M LABDRWAD 12:23
PROVIDERS: ATTEND Nurse Practitioner Acute Care
DX: Z95.811 Presence of heart assist device (principal)

== ENCOUNTER → 2019-07-04 | Outpatient (REF) | payer OTHER ==
[2019-07-04 12:43] LABS: HEMATOCRIT 49.1 % (42.0-52.0); HEMOGLOBIN 15.4 g/dl (13.5-17.5); MEAN CORPUSCULAR HEMOGLOBIN 28.8 pg (27.0-33.0); MEAN CORPUSCULAR HGB CONC 31.4 g/dl (32.0-36.5); MEAN CORPUSCULAR VOLUME 91.8 fl (80.0-96.0); PLATELET COUNT, AUTOMATED 210 10^3/uL (150-450); RED BLOOD COUNT 5.35 10^6/uL (4.30-6.10); WHITE BLOOD COUNT 6.7 10^3/uL (4.0-10.0)
[2019-07-04 12:58] LABS: INR 2.02; PROTHROMBIN TIME 22.6 SECONDS (11.8-14.0)
[2019-07-05 16:56] LABS: ALBUMIN 3.9 GM/DL (3.2-5.2); BILIRUBIN,TOTAL 0.6 MG/DL (0.2-1.0); CALCIUM LEVEL 8.6 MG/DL (8.5-10.1); CREATININE FOR GFR 1.38 MG/DL (0.70-1.30); GLOMERULAR FILTRATION RATE 56.3 (>56); MAGNESIUM LEVEL 2.1 MG/DL (1.8-2.4); TOTAL PROTEIN 7.5 GM/DL (6.4-8.2)
== END ==
LOC: M LABDRWAD 12:24
PROVIDERS: ATTEND Nurse Practitioner Acute Care
DX: Z95.811 Presence of heart assist device (principal)

== ENCOUNTER → 2019-07-12 | Outpatient (REF) | payer OTHER ==
[2019-07-12 13:18] LABS: HEMATOCRIT 49.4 % (42.0-52.0); HEMOGLOBIN 15.6 g/dl (13.5-17.5); MEAN CORPUSCULAR HEMOGLOBIN 28.5 pg (27.0-33.0); MEAN CORPUSCULAR HGB CONC 31.6 g/dl (32.0-36.5); MEAN CORPUSCULAR VOLUME 90.3 fl (80.0-96.0); PLATELET COUNT, AUTOMATED 212 10^3/uL (150-450); RED BLOOD COUNT 5.47 10^6/uL (4.30-6.10); WHITE BLOOD COUNT 10.4 10^3/uL (4.0-10.0)
[2019-07-12 13:38] LABS: INR 1.71; PROTHROMBIN TIME 19.8 SECONDS (11.8-14.0)
[2019-07-12 13:43] LABS: ALBUMIN 4.3 GM/DL (3.2-5.2); BILIRUBIN,TOTAL 0.5 MG/DL (0.2-1.0); CALCIUM LEVEL 9.2 MG/DL (8.5-10.1); CREATININE FOR GFR 1.43 MG/DL (0.70-1.30); GLOMERULAR FILTRATION RATE 54.1 (>56); MAGNESIUM LEVEL 2.3 MG/DL (1.8-2.4); POTASSIUM SERUM 3.8 MEQ/L (3.5-5.1); TOTAL PROTEIN 7.6 GM/DL (6.4-8.2)
== END ==
LOC: M LABDRWAD 12:27
PROVIDERS: ATTEND Nurse Practitioner Acute Care
DX: Z79.01 Long term (current) use of anticoagulants (principal); E83.42 Hypomagnesemia; Z95.811 Presence of heart assist device

== ENCOUNTER → 2019-07-25 | Outpatient (REF) | payer OTHER ==
[2019-07-25 17:18] LABS: HEMATOCRIT 45.2 % (42.0-52.0); HEMOGLOBIN 14.9 g/dl (13.5-17.5); MEAN CORPUSCULAR HEMOGLOBIN 29.1 pg (27.0-33.0); MEAN CORPUSCULAR VOLUME 88.3 fl (80.0-96.0); PLATELET COUNT, AUTOMATED 187 10^3/uL (150-450); RED BLOOD COUNT 5.12 10^6/uL (4.30-6.10); WHITE BLOOD COUNT 9.5 10^3/uL (4.0-10.0)
[2019-07-25 17:33] LABS: ALBUMIN 3.7 GM/DL (3.2-5.2); BILIRUBIN,TOTAL 0.5 MG/DL (0.2-1.0); CREATININE FOR GFR 1.5 MG/DL (0.70-1.30); GLOMERULAR FILTRATION RATE 51.2 (>56); MAGNESIUM LEVEL 1.9 MG/DL (1.8-2.4); POTASSIUM SERUM 4.1 MEQ/L (3.5-5.1); TOTAL PROTEIN 7.1 GM/DL (6.4-8.2)
[2019-07-25 17:55] LABS: INR 1.96; PROTHROMBIN TIME 22.1 SECONDS (11.8-14.0)
== END ==
LOC: M LAB REF 16:22 → M LABDRWAD 16:22
PROVIDERS: ATTEND Nurse Practitioner Acute Care
DX: Z79.01 Long term (current) use of anticoagulants (principal); Z79.899 Other long term (current) drug therapy; E83.42 Hypomagnesemia; Z95.811 Presence of heart assist device

== ENCOUNTER → 2019-08-08 | Outpatient (REF) | payer OTHER ==
[2019-08-08 12:35] LABS: HEMATOCRIT 49.2 % (42.0-52.0); HEMOGLOBIN 15.9 g/dl (13.5-17.5); MEAN CORPUSCULAR HGB CONC 32.3 g/dl (32.0-36.5); MEAN CORPUSCULAR VOLUME 89.8 fl (80.0-96.0); PLATELET COUNT, AUTOMATED 204 10^3/uL (150-450); RED BLOOD COUNT 5.48 10^6/uL (4.30-6.10); WHITE BLOOD COUNT 10.5 10^3/uL (4.0-10.0)
[2019-08-08 12:47] LABS: INR 1.95
[2019-08-08 13:07] LABS: BILIRUBIN,TOTAL 0.8 MG/DL (0.2-1.0); CREATININE FOR GFR 1.34 MG/DL (0.70-1.30); GLOMERULAR FILTRATION RATE 58.3 (>56); MAGNESIUM LEVEL 2.2 MG/DL (1.8-2.4); POTASSIUM SERUM 4.2 MEQ/L (3.5-5.1); TOTAL PROTEIN 7.8 GM/DL (6.4-8.2)
== END ==
LOC: M LABDRWAD 12:15 → M SHH 12:15
PROVIDERS: ATTEND Nurse Practitioner Acute Care
DX: Z79.01 Long term (current) use of anticoagulants (principal); E83.42 Hypomagnesemia; Z95.811 Presence of heart assist device; Z79.899 Other long term (current) drug therapy

== ENCOUNTER → 2019-08-22 | Outpatient (REF) | payer OTHER ==
[2019-08-22 13:24] LABS: HEMATOCRIT 45.8 % (42.0-52.0); HEMOGLOBIN 14.8 g/dl (13.5-17.5); MEAN CORPUSCULAR HEMOGLOBIN 28.7 pg (27.0-33.0); MEAN CORPUSCULAR HGB CONC 32.3 g/dl (32.0-36.5); MEAN CORPUSCULAR VOLUME 88.9 fl (80.0-96.0); PLATELET COUNT, AUTOMATED 176 10^3/uL (150-450); RED BLOOD COUNT 5.15 10^6/uL (4.30-6.10); WHITE BLOOD COUNT 8.2 10^3/uL (4.0-10.0)
[2019-08-22 13:32] LABS: ALBUMIN 3.8 GM/DL (3.2-5.2); BILIRUBIN,TOTAL 0.6 MG/DL (0.2-1.0); CREATININE FOR GFR 1.34 MG/DL (0.70-1.30); GLOMERULAR FILTRATION RATE 58.3 (>56); MAGNESIUM LEVEL 2.2 MG/DL (1.8-2.4); POTASSIUM SERUM 4.1 MEQ/L (3.5-5.1); TOTAL PROTEIN 7.2 GM/DL (6.4-8.2)
[2019-08-22 13:43] LABS: INR 2.12; PROTHROMBIN TIME 23.5 SECONDS (11.8-14.0)
== END ==
LOC: M LABDRWAD 12:36
PROVIDERS: ATTEND Nurse Practitioner Acute Care
DX: E83.42 Hypomagnesemia (principal); Z79.01 Long term (current) use of anticoagulants; Z79.899 Other long term (current) drug therapy; Z95.811 Presence of heart assist device

== ENCOUNTER → 2019-10-09 | Outpatient (REF) | payer OTHER ==
[2019-10-09 15:34] LABS: HEMATOCRIT 45.7 % (42.0-52.0); HEMOGLOBIN 14.6 g/dl (13.5-17.5); MEAN CORPUSCULAR HEMOGLOBIN 28.5 pg (27.0-33.0); MEAN CORPUSCULAR HGB CONC 31.9 g/dl (32.0-36.5); MEAN CORPUSCULAR VOLUME 89.1 fl (80.0-96.0); PLATELET COUNT, AUTOMATED 191 10^3/uL (150-450); RED BLOOD COUNT 5.13 10^6/uL (4.30-6.10); WHITE BLOOD COUNT 8.5 10^3/uL (4.0-10.0)
[2019-10-09 15:47] LABS: INR 2.58; PROTHROMBIN TIME 27.5 SECONDS (11.8-14.0)
[2019-10-09 16:05] LABS: ALT/SGPT 46 U/L (12-78); BILIRUBIN,TOTAL 0.5 MG/DL (0.2-1.0); BLOOD UREA NITROGEN 23 MG/DL (7-18); CARBON DIOXIDE LEVEL 32 MEQ/L (21-32); CHLORIDE LEVEL 104 MEQ/L (98-107); CREATININE FOR GFR 1.29 MG/DL (0.70-1.30); GLOMERULAR FILTRATION RATE > 60.0 (>56); GLUCOSE, FASTING 98 MG/DL (70-100); LDH LACTATE DEHYDROGENASE 216 U/L (87-241); MAGNESIUM LEVEL 2.4 MG/DL (1.8-2.4); POTASSIUM SERUM 4.1 MEQ/L (3.5-5.1); SODIUM LEVEL 140 MEQ/L (136-145); TOTAL PROTEIN 7.4 GM/DL (6.4-8.2)
== END ==
LOC: M LABDRWAD 14:54
PROVIDERS: ATTEND Nurse Practitioner Acute Care
DX: E83.42 Hypomagnesemia (principal); Z79.01 Long term (current) use of anticoagulants; Z95.811 Presence of heart assist device; Z79.899 Other long term (current) drug therapy

== ENCOUNTER → 2019-10-25 | Outpatient (REF) | payer OTHER ==
[2019-10-25 15:33] LABS: HEMATOCRIT 46.2 % (42.0-52.0); MEAN CORPUSCULAR HEMOGLOBIN 28.7 pg (27.0-33.0); MEAN CORPUSCULAR HGB CONC 32.5 g/dl (32.0-36.5); MEAN CORPUSCULAR VOLUME 88.3 fl (80.0-96.0); PLATELET COUNT, AUTOMATED 216 10^3/uL (150-450); RED BLOOD COUNT 5.23 10^6/uL (4.30-6.10); WHITE BLOOD COUNT 8.2 10^3/uL (4.0-10.0)
[2019-10-25 15:40] LABS: ALBUMIN 3.7 GM/DL (3.2-5.2); BILIRUBIN,TOTAL 0.4 MG/DL (0.2-1.0); CREATININE FOR GFR 1.34 MG/DL (0.70-1.30); GLOMERULAR FILTRATION RATE 58.3 (>56); MAGNESIUM LEVEL 2.4 MG/DL (1.8-2.4); TOTAL PROTEIN 7.1 GM/DL (6.4-8.2)
[2019-10-25 15:45] LABS: INR 2.83; PROTHROMBIN TIME 29.6 SECONDS (11.8-14.0)
== END ==
LOC: M LABDRWAD 15:05
PROVIDERS: ATTEND Nurse Practitioner Acute Care
DX: Z95.811 Presence of heart assist device (principal); Z79.01 Long term (current) use of anticoagulants; E83.42 Hypomagnesemia

== ENCOUNTER → 2019-11-09 | Outpatient (REF) | payer OTHER ==
[2019-11-09 13:07] LABS: HEMATOCRIT 46.9 % (42.0-52.0); HEMOGLOBIN 15.1 g/dl (13.5-17.5); MEAN CORPUSCULAR HEMOGLOBIN 28.1 pg (27.0-33.0); MEAN CORPUSCULAR HGB CONC 32.2 g/dl (32.0-36.5); MEAN CORPUSCULAR VOLUME 87.3 fl (80.0-96.0); PLATELET COUNT, AUTOMATED 211 10^3/uL (150-450); RED BLOOD COUNT 5.37 10^6/uL (4.30-6.10); WHITE BLOOD COUNT 7.4 10^3/uL (4.0-10.0)
[2019-11-09 13:20] LABS: ALBUMIN 3.7 GM/DL (3.2-5.2); BILIRUBIN,TOTAL 0.5 MG/DL (0.2-1.0); CALCIUM LEVEL 8.9 MG/DL (8.5-10.1); CREATININE FOR GFR 1.49 MG/DL (0.70-1.30); GLOMERULAR FILTRATION RATE 51.6 (>56); INR 3.07; MAGNESIUM LEVEL 2.2 MG/DL (1.8-2.4); POTASSIUM SERUM 4.2 MEQ/L (3.5-5.1); PROTHROMBIN TIME 31.6 SECONDS (11.8-14.0); TOTAL PROTEIN 7.3 GM/DL (6.4-8.2)
== END ==
LOC: M LABDRWAD 12:30
PROVIDERS: ATTEND Nurse Practitioner Acute Care
DX: E83.42 Hypomagnesemia (principal); Z79.899 Other long term (current) drug therapy; Z79.01 Long term (current) use of anticoagulants; Z95.811 Presence of heart assist device

== ENCOUNTER → 2019-11-23 | Outpatient (REF) | payer OTHER ==
[2019-11-23 13:11] LABS: HEMATOCRIT 45.2 % (42.0-52.0); MEAN CORPUSCULAR HEMOGLOBIN 29.2 pg (27.0-33.0); MEAN CORPUSCULAR HGB CONC 33.2 g/dl (32.0-36.5); MEAN CORPUSCULAR VOLUME 87.9 fl (80.0-96.0); PLATELET COUNT, AUTOMATED 214 10^3/uL (150-450); RED BLOOD COUNT 5.14 10^6/uL (4.30-6.10); WHITE BLOOD COUNT 8.2 10^3/uL (4.0-10.0)
[2019-11-23 13:22] LABS: INR 4.26; PROTHROMBIN TIME 41.2 SECONDS (11.8-14.0)
[2019-11-23 13:44] LABS: ALBUMIN 3.8 GM/DL (3.2-5.2); ALT/SGPT 35 U/L (12-78); BILIRUBIN,TOTAL 0.5 MG/DL (0.2-1.0); BLOOD UREA NITROGEN 20 MG/DL (7-18); CALCIUM LEVEL 8.7 MG/DL (8.5-10.1); CARBON DIOXIDE LEVEL 30 MEQ/L (21-32); CHLORIDE LEVEL 103 MEQ/L (98-107); CREATININE FOR GFR 1.29 MG/DL (0.70-1.30); GLOMERULAR FILTRATION RATE > 60.0 (>56); GLUCOSE, FASTING 68 MG/DL (70-100); LDH LACTATE DEHYDROGENASE 230 U/L (87-241); MAGNESIUM LEVEL 2.3 MG/DL (1.8-2.4); SODIUM LEVEL 138 MEQ/L (136-145); TOTAL PROTEIN 7.1 GM/DL (6.4-8.2)
== END ==
LOC: M LABDRWAD 12:31
PROVIDERS: ATTEND Nurse Practitioner Acute Care
DX: Z79.01 Long term (current) use of anticoagulants (principal); Z79.899 Other long term (current) drug therapy; Z95.811 Presence of heart assist device; E83.42 Hypomagnesemia

== ENCOUNTER → 2019-11-30 | Outpatient (REF) | payer OTHER ==
[2019-11-30 13:17] LABS: ALBUMIN 3.8 GM/DL (3.2-5.2); BILIRUBIN,TOTAL 0.5 MG/DL (0.2-1.0); CALCIUM LEVEL 8.8 MG/DL (8.5-10.1); CREATININE FOR GFR 1.39 MG/DL (0.70-1.30); GLOMERULAR FILTRATION RATE 55.9 (>56); MAGNESIUM LEVEL 2.2 MG/DL (1.8-2.4); POTASSIUM SERUM 4.1 MEQ/L (3.5-5.1); TOTAL PROTEIN 7.6 GM/DL (6.4-8.2)
[2019-11-30 13:18] LABS: HEMATOCRIT 48.5 % (42.0-52.0); HEMOGLOBIN 15.4 g/dl (13.5-17.5); MEAN CORPUSCULAR HGB CONC 31.8 g/dl (32.0-36.5); MEAN CORPUSCULAR VOLUME 88.2 fl (80.0-96.0); PLATELET COUNT, AUTOMATED 192 10^3/uL (150-450); WHITE BLOOD COUNT 9.3 10^3/uL (4.0-10.0)
[2019-11-30 13:27] LABS: INR 2.44; PROTHROMBIN TIME 26.3 SECONDS (11.8-14.0)
== END ==
LOC: M LABDRWAD 12:30
PROVIDERS: ATTEND Nurse Practitioner Acute Care
DX: Z79.01 Long term (current) use of anticoagulants (principal); E83.42 Hypomagnesemia; Z79.899 Other long term (current) drug therapy; Z95.811 Presence of heart assist device

== ENCOUNTER → 2019-12-14 | Outpatient (REF) | payer OTHER ==
[2019-12-14 17:32] LABS: HEMATOCRIT 48.5 % (42.0-52.0); HEMOGLOBIN 16.3 g/dl (13.5-17.5); MEAN CORPUSCULAR HEMOGLOBIN 29.1 pg (27.0-33.0); MEAN CORPUSCULAR HGB CONC 33.6 g/dl (32.0-36.5); MEAN CORPUSCULAR VOLUME 86.5 fl (80.0-96.0); PLATELET COUNT, AUTOMATED 208 10^3/uL (150-450); RED BLOOD COUNT 5.61 10^6/uL (4.30-6.10)
[2019-12-14 17:43] LABS: INR 1.98; PROTHROMBIN TIME 22.3 SECONDS (11.8-14.0)
[2019-12-14 17:57] LABS: BILIRUBIN,TOTAL 0.4 MG/DL (0.2-1.0); CALCIUM LEVEL 9.1 MG/DL (8.5-10.1); CREATININE FOR GFR 1.44 MG/DL (0.70-1.30); GLOMERULAR FILTRATION RATE 53.6 (>56); MAGNESIUM LEVEL 2.2 MG/DL (1.8-2.4); POTASSIUM SERUM 4.2 MEQ/L (3.5-5.1); TOTAL PROTEIN 7.6 GM/DL (6.4-8.2)
== END ==
LOC: M LABDRWAD 17:07
PROVIDERS: ATTEND Nurse Practitioner Acute Care
DX: Z51.81 Encounter for therapeutic drug level monitoring (principal); Z79.01 Long term (current) use of anticoagulants; E83.42 Hypomagnesemia; Z79.899 Other long term (current) drug therapy; Z95.811 Presence of heart assist device

== ENCOUNTER → 2019-12-28 | Outpatient (REF) | payer OTHER ==
[2019-12-28 17:49] LABS: HEMATOCRIT 46.1 % (42.0-52.0); HEMOGLOBIN 14.9 g/dl (13.5-17.5); MEAN CORPUSCULAR HEMOGLOBIN 28.1 pg (27.0-33.0); MEAN CORPUSCULAR HGB CONC 32.3 g/dl (32.0-36.5); MEAN CORPUSCULAR VOLUME 86.8 fl (80.0-96.0); PLATELET COUNT, AUTOMATED 183 10^3/uL (150-450); RED BLOOD COUNT 5.31 10^6/uL (4.30-6.10); WHITE BLOOD COUNT 9.6 10^3/uL (4.0-10.0)
[2019-12-28 17:53] LABS: ALBUMIN 3.7 GM/DL (3.2-5.2); ALT/SGPT 32 U/L (12-78); BILIRUBIN,TOTAL 0.6 MG/DL (0.2-1.0); BLOOD UREA NITROGEN 25 MG/DL (7-18); CALCIUM LEVEL 8.6 MG/DL (8.5-10.1); CARBON DIOXIDE LEVEL 27 MEQ/L (21-32); CHLORIDE LEVEL 106 MEQ/L (98-107); GLOMERULAR FILTRATION RATE > 60.0 (>56); GLUCOSE, FASTING 89 MG/DL (70-100); LDH LACTATE DEHYDROGENASE 249 U/L (87-241); MAGNESIUM LEVEL 2.4 MG/DL (1.8-2.4); POTASSIUM SERUM 4.1 MEQ/L (3.5-5.1); SODIUM LEVEL 139 MEQ/L (136-145); TOTAL PROTEIN 7.1 GM/DL (6.4-8.2)
[2019-12-28 18:03] LABS: INR 1.98; PROTHROMBIN TIME 22.3 SECONDS (11.8-14.0)
== END ==
LOC: M LABDRWAD 16:54
PROVIDERS: ATTEND Nurse Practitioner Acute Care
DX: I50.23 Acute on chronic systolic (congestive) heart failure (principal); I25.10 Atherosclerotic heart disease of native coronary artery without angina pectoris; I44.7 Left bundle-branch block, unspecified; Z95.811 Presence of heart assist device; T82.897A Other specified complication of cardiac prosthetic devices, implants and grafts, initial encounter; D59.4 Other nonautoimmune hemolytic anemias; Z79.01 Long term (current) use of anticoagulants; E83.42 Hypomagnesemia; Z79.899 Other long term (current) drug therapy

== ENCOUNTER → 2020-01-11 | Outpatient (REF) | payer OTHER ==
[~2020-01-11] MED LIST changes: -COUM1TAB14 PO; +COUM4TAB8 PO
[2020-01-11 17:03] LABS: HEMOGLOBIN 15.5 g/dl (13.5-17.5); MEAN CORPUSCULAR HEMOGLOBIN 28.5 pg (27.0-33.0); MEAN CORPUSCULAR VOLUME 86.4 fl (80.0-96.0); PLATELET COUNT, AUTOMATED 170 10^3/uL (150-450); RED BLOOD COUNT 5.44 10^6/uL (4.30-6.10); WHITE BLOOD COUNT 9.2 10^3/uL (4.0-10.0)
[2020-01-11 17:05] LABS: ALBUMIN 3.9 GM/DL (3.2-5.2); BILIRUBIN,TOTAL 0.5 MG/DL (0.2-1.0); CALCIUM LEVEL 8.7 MG/DL (8.5-10.1); CREATININE FOR GFR 1.57 MG/DL (0.70-1.30); GLOMERULAR FILTRATION RATE 48.5 (>56); MAGNESIUM LEVEL 2.1 MG/DL (1.8-2.4); POTASSIUM SERUM 4.1 MEQ/L (3.5-5.1); TOTAL PROTEIN 7.4 GM/DL (6.4-8.2)
[2020-01-11 17:13] LABS: INR 2.24; PROTHROMBIN TIME 24.6 SECONDS (11.8-14.0)
== END ==
LOC: M LABDRWAD 16:13
PROVIDERS: ATTEND Nurse Practitioner Acute Care
DX: I50.23 Acute on chronic systolic (congestive) heart failure (principal); I25.10 Atherosclerotic heart disease of native coronary artery without angina pectoris; I44.7 Left bundle-branch block, unspecified; Z95.811 Presence of heart assist device; D59.4 Other nonautoimmune hemolytic anemias; Z79.01 Long term (current) use of anticoagulants; E83.42 Hypomagnesemia

== ENCOUNTER → 2020-01-25 | Outpatient (REF) | payer OTHER ==
[2020-01-25 13:10] LABS: HEMOGLOBIN 14.8 g/dl (13.5-17.5); MEAN CORPUSCULAR HEMOGLOBIN 28.7 pg (27.0-33.0); MEAN CORPUSCULAR HGB CONC 32.9 g/dl (32.0-36.5); MEAN CORPUSCULAR VOLUME 87.4 fl (80.0-96.0); PLATELET COUNT, AUTOMATED 172 10^3/uL (150-450); RED BLOOD COUNT 5.15 10^6/uL (4.30-6.10); WHITE BLOOD COUNT 8.2 10^3/uL (4.0-10.0)
[2020-01-25 13:22] LABS: INR 2.62; PROTHROMBIN TIME 27.9 SECONDS (11.8-14.0)
[2020-01-25 13:46] LABS: ALBUMIN 3.6 GM/DL (3.2-5.2); BILIRUBIN,TOTAL 0.7 MG/DL (0.2-1.0); CALCIUM LEVEL 8.6 MG/DL (8.5-10.1); CREATININE FOR GFR 1.39 MG/DL (0.70-1.30); GLOMERULAR FILTRATION RATE 55.9 (>56); MAGNESIUM LEVEL 2.4 MG/DL (1.8-2.4); POTASSIUM SERUM 4.1 MEQ/L (3.5-5.1)
== END ==
LOC: M LABDRWAD 12:48
PROVIDERS: ATTEND Nurse Practitioner Acute Care
DX: I50.23 Acute on chronic systolic (congestive) heart failure (principal); I25.10 Atherosclerotic heart disease of native coronary artery without angina pectoris; I44.7 Left bundle-branch block, unspecified; Z95.811 Presence of heart assist device; D59.4 Other nonautoimmune hemolytic anemias; Z79.01 Long term (current) use of anticoagulants; E83.42 Hypomagnesemia

== ENCOUNTER → 2020-02-15 | Outpatient (REF) | payer OTHER ==
[~2020-02-15] MED LIST changes: -ASPI81TA85 PO; +ASPI81TA86 PO
[2020-02-15 14:16] LABS: HEMATOCRIT 47.2 % (42.0-52.0); HEMOGLOBIN 15.2 g/dl (13.5-17.5); MEAN CORPUSCULAR HEMOGLOBIN 28.3 pg (27.0-33.0); MEAN CORPUSCULAR HGB CONC 32.2 g/dl (32.0-36.5); MEAN CORPUSCULAR VOLUME 87.9 fl (80.0-96.0); PLATELET COUNT, AUTOMATED 193 10^3/uL (150-450); RED BLOOD COUNT 5.37 10^6/uL (4.30-6.10); WHITE BLOOD COUNT 10.2 10^3/uL (4.0-10.0)
[2020-02-15 14:25] LABS: INR 2.28; PROTHROMBIN TIME 24.9 SECONDS (11.8-14.0)
[2020-02-15 14:28] LABS: ALBUMIN 3.7 GM/DL (3.2-5.2); BILIRUBIN,TOTAL 0.4 MG/DL (0.2-1.0); CALCIUM LEVEL 8.8 MG/DL (8.5-10.1); CREATININE FOR GFR 1.47 MG/DL (0.70-1.30); GLOMERULAR FILTRATION RATE 52.2 (>56); MAGNESIUM LEVEL 2.4 MG/DL (1.8-2.4); POTASSIUM SERUM 4.1 MEQ/L (3.5-5.1); TOTAL PROTEIN 7.4 GM/DL (6.4-8.2)
== END ==
LOC: M LABDRWAD 12:48
PROVIDERS: ATTEND Nurse Practitioner Acute Care
DX: Z51.81 Encounter for therapeutic drug level monitoring (principal); Z79.01 Long term (current) use of anticoagulants; Z79.899 Other long term (current) drug therapy; I50.23 Acute on chronic systolic (congestive) heart failure; I25.10 Atherosclerotic heart disease of native coronary artery without angina pectoris; I44.7 Left bundle-branch block, unspecified; Z95.811 Presence of heart assist device; T82.897A Other specified complication of cardiac prosthetic devices, implants and grafts, initial encounter; D59.4 Other nonautoimmune hemolytic anemias; E83.42 Hypomagnesemia

== ENCOUNTER → 2020-03-13 | Outpatient (REF) | payer OTHER ==
[2020-04-11 23:14] LABS: HEMATOCRIT 49.3 % (42.0-52.0); HEMOGLOBIN 16.1 g/dl (13.5-17.5); MEAN CORPUSCULAR HEMOGLOBIN 28.5 pg (27.0-33.0); MEAN CORPUSCULAR HGB CONC 32.7 g/dl (32.0-36.5); MEAN CORPUSCULAR VOLUME 87.4 fl (80.0-96.0); PLATELET COUNT, AUTOMATED 235 10^3/uL (150-450); RED BLOOD COUNT 5.64 10^6/uL (4.30-6.10); WHITE BLOOD COUNT 8.4 10^3/uL (4.0-10.0)
[2020-04-11 23:19] LABS: INR 1.88; PROTHROMBIN TIME 22.1 SECONDS (11.8-14.0)
[2020-04-27 17:38] LABS: ALBUMIN 4.1 GM/DL (3.2-5.2); BILIRUBIN,TOTAL 0.4 MG/DL (0.2-1.0); CALCIUM LEVEL 8.9 MG/DL (8.5-10.1); CREATININE FOR GFR 1.41 MG/DL (0.70-1.30); GLOMERULAR FILTRATION RATE 54.8 (>56); MAGNESIUM LEVEL 2.3 MG/DL (1.8-2.4); POTASSIUM SERUM 4.3 MEQ/L (3.5-5.1); TOTAL PROTEIN 7.9 GM/DL (6.4-8.2)
== END ==
LOC: M LABDRWAD 12:32
PROVIDERS: ATTEND Nurse Practitioner Acute Care
DX: I50.23 Acute on chronic systolic (congestive) heart failure (principal); I25.10 Atherosclerotic heart disease of native coronary artery without angina pectoris; I44.7 Left bundle-branch block, unspecified; Z95.811 Presence of heart assist device; D59.4 Other nonautoimmune hemolytic anemias; Z79.01 Long term (current) use of anticoagulants; E83.42 Hypomagnesemia; Z79.899 Other long term (current) drug therapy

== ENCOUNTER 2020-07-06 16:08 | Inpatient (IN) | payer OTHER ==
[~2020-07-06] VITALS: Ht 185.4 cm; Wt 168.5 kg
[~2020-07-06 16:08] MED LIST changes: +ACET-838 PO; -NON-325T5 PO
[2020-07-06 16:09] VITALS: BP_DIAS 89
[2020-07-06] MEDS ORDERED: THIAMINE 200MG/2ML VIAL (J3411 PER 100MG) IV ONE (16:45)
[2020-07-06 16:52] LABS: BASO % 0.4 % (0.0-1.0); HEMATOCRIT 43.9 % (42.0-52.0); LYMPH # 1.4 10^3/uL (1.5-5.0); LYMPH % 13.7 % (24.0-44.0); MEAN CORPUSCULAR HEMOGLOBIN 27.7 pg (27.0-33.0); MEAN CORPUSCULAR HGB CONC 31.9 g/dl (32.0-36.5); MEAN CORPUSCULAR VOLUME 86.9 fl (80.0-96.0); MONO # 0.9 10^3/uL (0.0-0.8); MONO % 8.7 % (0.0-5.0); NEUTROPHILS # 7.6 10^3/uL (1.5-8.5); NEUTROPHILS % 76.4 % (36.0-66.0); PLATELET COUNT, AUTOMATED 179 10^3/uL (150-450); RED BLOOD COUNT 5.05 10^6/uL (4.30-6.10); WHITE BLOOD COUNT 9.9 10^3/uL (4.0-10.0)
[2020-07-06 17:05] LABS: INR 1.19; PROTHROMBIN TIME 15.4 SECONDS (12.5-14.3)
[2020-07-06] MEDS ORDERED: ISOVUE-370 76% 100ML VIAL As Ordered ONE (17:13)
--- NOTE | 2020-07-06 17:44 | REPVR ---
PROCEDURE INFORMATION: Exam: CT Head Without Contrast Exam date and time: 07/06/2020 5:28 PM Age: 60 years old Clinical indication: Other: Global amnesia TECHNIQUE: Imaging protocol: Computed tomography of the head without contrast. Radiation optimization: All CT scans at this facility use at least one of these dose optimization techniques: automated exposure control; mA and/or kV adjustment per patient size (includes targeted exams where dose is matched to clinical indication); or iterative reconstruction. COMPARISON: CT Head without contrast 09/12/2018 11:23 AM FINDINGS: Brain: Unremarkable. No hemorrhage. No significant white matter disease. No edema. Cerebral ventricles: No ventriculomegaly. Bones/joints: Unremarkable. No acute fracture. Paranasal sinuses: Visualized sinuses are unremarkable. No fluid levels. Mastoid air cells: Visualized mastoid air cells are well aerated. Soft tissues: Unremarkable. IMPRESSION: No acute abnormality. Electronically signed by: Joseph Greene On 07/06/2020 17:44:35 PM
[2020-07-06 17:57] LABS: ALBUMIN 3.6 GM/DL (3.2-5.2); ALT/SGPT 29 U/L (12-78); BILIRUBIN,DIRECT < 0.1 MG/DL (0.0-0.2); BILIRUBIN,TOTAL 0.3 MG/DL (0.2-1.0)
--- NOTE | 2020-07-06 17:57 | REPVR ---
PROCEDURE INFORMATION: Exam: CT Angiography Head With Contrast Exam date and time: 07/06/2020 5:28 PM Age: 60 years old Clinical indication: Other: Global amnesia TECHNIQUE: Imaging protocol: Computed tomography angiography of the head with intravenous contrast. 3D rendering (Not supervised by radiologist): MIP and/or 3D reconstructed images were created by the technologist. Radiation optimization: All CT scans at this facility use at least one of these dose optimization techniques: automated exposure control; mA and/or kV adjustment per patient size (includes targeted exams where dose is matched to clinical indication); or iterative reconstruction. Contrast material: ISOVUE 370; Contrast volume: 100 ml; Contrast route: INTRAVENOUS (IV); COMPARISON: CT Head without contrast 09/12/2018 11:23 AM FINDINGS: ANTERIOR CIRCULATION: Right internal carotid artery: Calcified plaque within the petrous and cavernous portions of the right internal carotid artery with mild stenoses. No occlusion or aneurysm. Right middle cerebral artery: Unremarkable. No occlusion or significant stenosis. No aneurysm. Right anterior cerebral artery: Unremarkable. No occlusion or significant stenosis. No aneurysm. Left internal carotid artery: Calcified plaque within the petrous and cavernous portions of the left internal carotid artery with mild stenoses. No occlusion or aneurysm. Left middle cerebral artery: Unremarkable. No occlusion or significant stenosis. No aneurysm. Left anterior cerebral artery: Unremarkable. No occlusion or significant stenosis. No aneurysm. POSTERIOR CIRCULATION: Right vertebral artery: Unremarkable. No occlusion or significant stenosis. No aneurysm. Left vertebral artery: Unremarkable. No occlusion or significant stenosis. No aneurysm. Basilar artery: Unremarkable. No occlusion or significant stenosis. No aneurysm. Right posterior cerebral artery: The right P2 segment is supplied by the right posterior communicating artery. The right P1 segment is hypoplastic. No occlusion or significant stenosis. No aneurysm. Left posterior cerebral artery: Unremarkable. No occlusion or significant stenosis. No aneurysm. Brain: No definite mass, mass effect, or midline shift. Cerebral ventricles: No ventriculomegaly. Bones/joints: Unremarkable. No acute fracture. Soft tissues: Unremarkable. IMPRESSION: Calcified plaque within the petrous and cavernous portions of the right and left internal carotid arteries with mild stenoses. Electronically signed by: Joseph Greene On 07/06/2020 17:57:00 PM
--- NOTE | 2020-07-06 18:15 | REPVR ---
PROCEDURE INFORMATION: Exam: CT Angiography Neck With Contrast Exam date and time: 07/06/2020 5:28 PM Age: 60 years old Clinical indication: Other: Global amnesia TECHNIQUE: Imaging protocol: Computed tomography angiography of the neck with intravenous contrast. 3D rendering (Not supervised by radiologist): MIP and/or 3D reconstructed images were created by the technologist. Radiation optimization: All CT scans at this facility use at least one of these dose optimization techniques: automated exposure control; mA and/or kV adjustment per patient size (includes targeted exams where dose is matched to clinical indication); or iterative reconstruction. Contrast material: ISOVUE 370; Contrast volume: 100 ml; Contrast route: INTRAVENOUS (IV); COMPARISON: No relevant prior studies available. FINDINGS: Right common carotid artery: No stenosis. No dissection or occlusion. Right internal carotid artery: Mild calcified plaque within the proximal right ICA with mild stenosis. No dissection or occlusion. Right external carotid artery: No occlusion or stenosis of the origin. Right vertebral artery: Minimal calcified plaque within the proximal right vertebral artery. The remainder of the right vertebral artery is patent. Left common carotid artery: No stenosis. No dissection or occlusion. Left internal carotid artery: Mild calcified plaque within the proximal left ICA with mild stenosis. No dissection or occlusion. Left external carotid artery: No occlusion or stenosis of the origin. Left vertebral artery: Minimal calcified plaque at the origin the left vertebral artery. The remainder of the left vertebral artery is patent. Bones/joints: Degenerative disc disease and facet arthrosis throughout the cervical spine. Mild bony spinal stenosis at C5-C6 and C6-C7. Soft tissues: Normal. No significant soft tissue swelling. Upper mediastinum: Postoperative changes from previous CABG. Lungs: Cardiac pacer battery pack within the anterior right upper chest wall and leads within the superior vena cava. IMPRESSION: 1. Calcified plaque within the right and left proximal internal carotid arteries with less than 50% stenoses. 2. Minimal calcified plaque within the proximal vertebral arteries. REFERENCES: NASCET CRITERIA. The degree of internal carotid artery stenosis is based on NASCET criteria. Normal is no stenosis. Mild is less than 50% stenosis. Moderate is 50-69% stenosis. Severe is 70% to 99% stenosis. Total occlusion is no detectable patent lumen. Electronically signed by: Joseph Greene On 07/06/2020 18:15:13 PM
--- NOTE | 2020-07-06 18:36 | ECGEPIP ---
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
[2020-07-06] MEDS ORDERED: WARF-60 PO (18:49)
[2020-07-06] MEDS ORDERED: HYDR-3911 PO (18:51)
[2020-07-06] MEDS ORDERED: DESV25TA PO (18:54)
[2020-07-06] MEDS ORDERED: WARF-20 PO (18:54)
[2020-07-06] MEDS ORDERED: POTA20TA6 PO (18:54)
[2020-07-06] MEDS ORDERED: REPA140I2 INJ (18:54)
[2020-07-06] MEDS ORDERED: METO1TAB32 PO (18:54)
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
[2020-07-06] MEDS ORDERED: MOM 30ML SUSPENSION UDC PO PRN (19:30)
[2020-07-06] MEDS ORDERED: MAALOX 30 ML SUSP *UDC PO PRN (19:30)
[2020-07-06] MEDS ORDERED: ACETAMINOPHEN TAB 650MG DOSE (2X325MG) PO PRN (19:30)
[2020-07-06] MEDS ORDERED: HEPARIN DRIP 25,000 UNITS in IV 1 EA IV SCH (20:10)
[2020-07-06] MEDS ORDERED: HEPARIN SOD (PORCINE) 5000UNITS/ML 1ML VIAL/SYRINGE IV PRN (20:15)
[2020-07-06 20:33] LABS: C REACTIVE PROTEIN QUANTITATIV 0.84 MG/DL (0.00-0.30)
[2020-07-06 20:38] LABS: PARTIAL THROMBOPLASTIN TIME 30.9 SECONDS (24.2-38.5)
[2020-07-06] MEDS ORDERED: ENOXAPARIN 40MG/0.4ML SYRINGE (J1650 PER 10MG) SC SCH (21:00)
[2020-07-06 21:26] LABS: VENOUS BASE EXCESS -2.2 (-2.0-2.0); VENOUS HCO3 22.2 MEQ/L (23.0-27.0); VENOUS O2 SATURATION 98.3 % (60.0-80.0); VENOUS PARTIAL PRESSURE CO2 37.6 mmHg (38.0-50.0); VENOUS PARTIAL PRESSURE O2 107.9 mmHg (30.0-50.0); VENOUS STANDARD HCO3 22.6 MEQ/L; VENOUS TOTAL CO2 23.4 MEQ/L (24.0-28.0)
[2020-07-06 21:41] LABS: INR 1.16; PROTHROMBIN TIME 15.1 SECONDS (12.5-14.3)
[2020-07-06] MEDS ORDERED: ENOXAPARIN 100MG/1ML SYRINGE (J1650 PER 10MG) SC SCH (22:00)
[2020-07-06 23:07] LABS: HEMOGLOBIN A1c 5.5 %
[2020-07-07] VITALS (7 sets, daily range): BP systolic 54–92; BP diastolic 92
[2020-07-07] MEDS: **hydrALAZINE** 50 MG TAB PO SCH ×4 (00:52→20:47)
[2020-07-07] MEDS: ENOXAPARIN 100MG/1ML SYRINGE (J1650 PER 10MG) SC SCH ×2 (00:53→12:32)
[2020-07-07] MEDS ORDERED: LEVO75TA4 PO (02:56)
[2020-07-07] MEDS: LEVOTHYROXINE 75MCG TABLET (0.075MG) PO SCH (05:42)
[2020-07-07] MEDS ORDERED: LEVOTHYROXINE 50MCG TABLET (0.05MG) PO SCH (06:00)
[2020-07-07 06:26] LABS: HEMATOCRIT 43.8 % (42.0-52.0); HEMOGLOBIN 14.1 g/dl (13.5-17.5); MEAN CORPUSCULAR HEMOGLOBIN 28.4 pg (27.0-33.0); MEAN CORPUSCULAR HGB CONC 32.2 g/dl (32.0-36.5); MEAN CORPUSCULAR VOLUME 88.1 fl (80.0-96.0); PLATELET COUNT, AUTOMATED 169 10^3/uL (150-450); RED BLOOD COUNT 4.97 10^6/uL (4.30-6.10); WHITE BLOOD COUNT 9.6 10^3/uL (4.0-10.0)
[2020-07-07 06:58] LABS: CALCIUM LEVEL 8.9 MG/DL (8.5-10.1); CREATININE FOR GFR 1.51 MG/DL (0.70-1.30); GLOMERULAR FILTRATION RATE 50.6 (>56); POTASSIUM SERUM 3.7 MEQ/L (3.5-5.1)
[2020-07-07] MEDS: SPIRONOLACTONE 25 MG TAB PO SCH (09:00)
[2020-07-07] MEDS: METOPROLOL SUCC *XL* 25MG TAB (TopROL *XL*) PO SCH (09:00)
[2020-07-07] MEDS: TORSEMIDE 20 MG TAB PO SCH (09:00)
[2020-07-07] MEDS: POTASSIUM CHLORIDE 10 MEQ SR TABLET PO SCH (09:47)
[2020-07-07] MEDS: DESVENLAFAXINE PO SCH (09:47)
[2020-07-07] MEDS: allopurinoL 100 MG TAB PO SCH (09:47)
[2020-07-07] MEDS ORDERED: SLF 3 ML SYR IV PRN (10:15)
--- NOTE | 2020-07-07 11:55 | IPNPDOC ---
Date Seen The patient was seen on 07/07/20. Progress Note SUBJECTIVE: despite MAP 58, no c/o lightheadedness, sob, or dizziness. speaking in full sentences and no confusion. OBJECTIVE PHYSICAL EXAMINATION: GEN: sitting in bed at 90 degrees speaking to his dad on the phone. no respiratory distress. no pallor or cyanosis. no use of resp acc mm.obse. HEENTno JVD no carotid bruits. CVS: LVAD heart sounds S1S2 LUNGS: AEBE distant breath soundsbut clear ABD: obese soft nt nd no abd bruit. EXT: chronic edema b/l LE no cyanosis or chronic stasis changes. dry skin LABORATORY DATA, IMAGING STUDIES, MICROBIOLOGY: Please see below. ASSESSMENT: Total global amnesia End stage heart disease with placement of an LVAD, TIA, CAD/CABG, DLP, HTN, Hypothyroidism, Depression, DONNA, CKD 3, Obesity PLAN: unable to get MRI brain due to LVAD/AICD. continue with oral AC to target INR 2-3. transfer to PCU for tele. per Dr. Araya, reporting lead spa consultant, call pt's personal reporting lead in [place] for all issues. currenlty hemodynamically improved, and not needing vasopressor or midodrine. holding bp meds and diuretics for MAP<70. may resume once MAP>70. PT HSE. possible dc in am. no need to check AICD per Dr. Araya right now. monitor on TELE. VS, I&O, 24H, [facility] Vital Signs/I&O Vital Signs Date Time Temp Pulse Resp B/P (MAP) Pulse Ox O2 Delivery O2 Flow Rate FiO2 07/07/20 06:00 97.9 16 54/ (18 97 Room Air 07/07/20 00:12 71 I&O- Last 24 Hours up to 6 AM 07/07/20 06:00 Intake Total 570 ml Output Total 0 ml Balance 570 ml Laboratory Data 24H LABS Laboratory Tests 2 07/06/20 16:31: Total Bilirubin 0.3, Direct Bilirubin < 0.1, Aspartate Amino Transf (AST/SGOT) 21, Alanine Aminotransferase (ALT/SGPT) 29, Alkaline Phosphatase 93, C-Reactive Protein, Quantitative 0.84H, Total Protein 7.0, Albumin 3.6, Albumin/Globulin Ratio 1.1, Thyroid Stimulating Hormone (TSH) 3.630 07/06/20 16:40: Immature Granulocyte % (Auto) 0.8, Neutrophils (%) (Auto) 76.4H, Lymphocytes (%) (Auto) 13.7L, Monocytes (%) (Auto) 8.7H, Eosinophils (%) (Auto) 0.0, Basophils (%) (Auto) 0.4, Neutrophils # (Auto) 7.6, Lymphocytes # (Auto) 1.4L, Monocytes # (Auto) 0.9H, Eosinophils # (Auto) 0.0, Basophils # (Auto) 0.0, Nucleated Red Blood Cells % (auto) 0.0, Prothrombin Time 15.4H, Prothromb Time International Ratio 1.19, Activated Partial Thromboplast Time 30.9 07/06/20 16:47: POC Glucose (Misc Panel) 134H, POC Sodium (Misc Panel) 141, POC Potassium (Misc Panel) 3.7, POC Chloride (Misc Panel) 101, POC Total CO2 (Misc Panel) 26.0, POC Blood Urea Nitrogen (Misc Panel 22, POC Ionized Calcium (Misc Panel) 4.6, POC Creatinine (Misc Panel) 1.5H, POC Hematocrit (Misc Panel) 43.0 07/06/20 19:29: Coronavirus (COVID-19)(PCR) NEGATIVE 07/06/20 21:17: Estimated Mean Plasma Glucose 111H, Hemoglobin A1c 5.5 07/06/20 21:18: Prothrombin Time 15.1H, Prothromb Time International Ratio 1.16, Blood Gas Bicarbonate Standard 22.6, Venous Blood pH 7.390, Venous Blood Partial Pressure CO2 37.6L, Venous Blood Partial Pressure O2 107.9H, Venous Blood Total Carbon Dioxide 23.4L, Venous Blood HCO3 22.2L, Venous Blood Oxygen Saturation 98.3H, Venous Blood Base Excess -2.2L 07/07/20 06:00: Nucleated Red Blood Cells % (auto) 0.0, Anion Gap 8, Glomerular Filtration Rate 50.6L, Calcium Level 8.9 CBC/BMP Laboratory Tests 07/06/20 16:40 07/07/20 06:00 HENRRY WRIGHT MD Jul 07, 2020 10:17
[2020-07-07] MEDS: SLF 3 ML SYR IV SCH ×2 (14:00→20:47)
[2020-07-07] MEDS ORDERED: WARFARIN SOD 5MG TAB PO ONE (17:00)
[2020-07-07] MEDS ORDERED: WARFARIN SOD 4MG TAB PO SCH (20:15)
[2020-07-07] MEDS ORDERED: WARFARIN SOD 3MG TAB PO SCH (20:15)
[2020-07-08] VITALS: BP_SYST 70
[2020-07-08] MEDS: ENOXAPARIN 100MG/1ML SYRINGE (J1650 PER 10MG) SC SCH ×2 (00:16→11:48)
[2020-07-08 04:00] VITALS: BP_SYST 82
[2020-07-08 05:47] LABS: MEAN CORPUSCULAR HEMOGLOBIN 28.6 pg (27.0-33.0); MEAN CORPUSCULAR HGB CONC 32.6 g/dl (32.0-36.5); MEAN CORPUSCULAR VOLUME 87.8 fl (80.0-96.0); PLATELET COUNT, AUTOMATED 153 10^3/uL (150-450); WHITE BLOOD COUNT 8.2 10^3/uL (4.0-10.0)
[2020-07-08 06:09] LABS: INR 1.19; PROTHROMBIN TIME 15.4 SECONDS (12.5-14.3)
[2020-07-08 06:16] LABS: CALCIUM LEVEL 8.7 MG/DL (8.5-10.1); CREATININE FOR GFR 1.38 MG/DL (0.70-1.30); GLOMERULAR FILTRATION RATE 56.1 (>56); MAGNESIUM LEVEL 2.1 MG/DL (1.8-2.4); POTASSIUM SERUM 3.9 MEQ/L (3.5-5.1)
[2020-07-08] MEDS: LEVOTHYROXINE 75MCG TABLET (0.075MG) PO SCH (06:27)
[2020-07-08] MEDS: SLF 3 ML SYR IV SCH (06:27)
[2020-07-08] MEDS ORDERED: SELF1KIT MC (06:36)
[2020-07-08 08:57] VITALS: BP_SYST 102
[2020-07-08 09:05] VITALS: BP_SYST 102
[2020-07-08] MEDS: **hydrALAZINE** 50 MG TAB PO SCH (09:05)
[2020-07-08] MEDS: METOPROLOL SUCC *XL* 25MG TAB (TopROL *XL*) PO SCH (09:05)
[2020-07-08] MEDS: SPIRONOLACTONE 25 MG TAB PO SCH (09:05)
[2020-07-08] MEDS: POTASSIUM CHLORIDE 10 MEQ SR TABLET PO SCH (09:05)
[2020-07-08] MEDS: DESVENLAFAXINE PO SCH (09:06)
[2020-07-08] MEDS: TORSEMIDE 20 MG TAB PO SCH (09:06)
[2020-07-08] MEDS: allopurinoL 100 MG TAB PO SCH (09:06)
--- NOTE | 2020-07-08 12:23 | DS.PDOC ---
Discharge Summary General Date of Admission Jul 06, 2020 at 19:19 Date of Discharge 07/08/20 Discharge Summary DISCHARGE DIAGNOSES: Total global amnesia End stage heart disease with placement of an LVAD, TIA, CAD/CABG, DLP, HTN, Hypothyroidism, Depression, DONNA, on CPAP CKD 3 Morbid Obesity BMI 49 DISCHARGE MEDICATIONS: pls see below DISCHARGE INSTRUCTIONS: Call your rn medical inpatient services at [facility] for systolic blood pressure <80 mmHg, or for recurrent syncopal episodes cardiology fu within 1 wk of discharge, pcp within 5 days. HOSPITAL COURSE: 60-year-old gentleman was in his usual state of health, and was doing crafts at home with his parents when he had transient memory loss for several minutes, brought in by his parents to the ER. He admitted to slight headache, but no tonic/clonic activity.He denied palpiations, lightheadedness, sob, chest pain,pressure,tightness, n/v/abd pain and did not feel his defibrillator fire. In the ER, CTA brain negative for occlusion. CTA Neck no hemodynamically significant occlusion. EKg had no heart block or acute ischemia. card larios were unremarkable. Tele: no pause. He noted to have mean arterial pressure of 58, and his diuretics were held overnight with creatinine improving from 1.5 to 1.3 on discharge. His hydralazine and metoprolol were held due to hypotension. He was not orthostatic, and ambulated without dizziness, lightheadedness, or syncope. Pt was instructed to check his blood pressure by doppler and call his rn medical inpatient services if systolic pressure<80 mmHg to adjust his medications. DISCHARGE PHYSICAL EXAMINATION: VITAL SIGNS: see below GEN: sitting in bed at 90 degrees speaking to his dad on the phone. no respiratory distress. no pallor or cyanosis. no use of resp acc mm.obse. HEENTno JVD no carotid bruits. CVS: LVAD heart sounds S1S2 LUNGS: AEBE distant breath soundsbut clear ABD: obese soft nt nd no abd bruit. EXT: chronic edema b/l LE no cyanosis or chronic stasis changes. dry skin LABORATORY DATA, IMAGING STUDIES, MICROBIOLOGY: Please see below. Exam: CT Angiography Head With Contrast Exam date and time: 07/06/2020 5:28 PM Age: 60 years old Clinical indication: Other: Global amnesia TECHNIQUE: Imaging protocol: Computed tomography angiography of the head with intravenous contrast. 3D rendering (Not supervised by radiologist): MIP and/or 3D reconstructed images were created by the technologist. Radiation optimization: All CT scans at this facility use at least one of these dose optimization techniques: automated exposure control; mA and/or kV adjustment per patient size (includes targeted exams where dose is matched to clinical indication); or iterative reconstruction. Contrast material: ISOVUE 370; Contrast volume: 100 ml; Contrast route: INTRAVENOUS (IV); COMPARISON: CT Head without contrast 09/12/2018 11:23 AM FINDINGS: ANTERIOR CIRCULATION: Right internal carotid artery: Calcified plaque within the petrous and cavernous portions of the right internal carotid artery with mild stenoses. No occlusion or aneurysm. Right middle cerebral artery: Unremarkable. No occlusion or significant stenosis. No aneurysm. Right anterior cerebral artery: Unremarkable. No occlusion or significant stenosis. No aneurysm. Left internal carotid artery: Calcified plaque within the petrous and cavernous portions of the left internal carotid artery with mild stenoses. No occlusion or aneurysm. Left middle cerebral artery: Unremarkable. No occlusion or significant stenosis. No aneurysm. Left anterior cerebral artery: Unremarkable. No occlusion or significant stenosis. No aneurysm. POSTERIOR CIRCULATION: Right vertebral artery: Unremarkable. No occlusion or significant stenosis. No aneurysm. Left vertebral artery: Unremarkable. No occlusion or significant stenosis. No aneurysm. Basilar artery: Unremarkable. No occlusion or significant stenosis. No aneurysm. Right posterior cerebral artery: The right P2 segment is supplied by the right posterior communicating artery. The right P1 segment is hypoplastic. No occlusion or significant stenosis. No aneurysm. Left posterior cerebral artery: Unremarkable. No occlusion or significant stenosis. No aneurysm. Brain: No definite mass, mass effect, or midline shift. Cerebral ventricles: No ventriculomegaly. Bones/joints: Unremarkable. No acute fracture. Soft tissues: Unremarkable. IMPRESSION: Calcified plaque within the petrous and cavernous portions of the right and left internal carotid arteries with mild stenoses. Electronically signed by: Joseph Greene On 07/06/2020 17:57:00 PM Exam: CT Head Without Contrast Exam date and time: 07/06/2020 5:28 PM Age: 60 years old Clinical indication: Other: Global amnesia TECHNIQUE: Imaging protocol: Computed tomography of the head without contrast. Radiation optimization: All CT scans at this facility use at least one of these dose optimization techniques: automated exposure control; mA and/or kV adjustment per patient size (includes targeted exams where dose is matched to clinical indication); or iterative reconstruction. COMPARISON: CT Head without contrast 09/12/2018 11:23 AM FINDINGS: Brain: Unremarkable. No hemorrhage. No significant white matter disease. No edema. Cerebral ventricles: No ventriculomegaly. Bones/joints: Unremarkable. No acute fracture. Paranasal sinuses: Visualized sinuses are unremarkable. No fluid levels. Mastoid air cells: Visualized mastoid air cells are well aerated. Soft tissues: Unremarkable. IMPRESSION: No acute abnormality. Electronically signed by: Joseph Greene On 07/06/2020 17:44:35 PM Left vertebral artery: Minimal calcified plaque at the origin the left vertebral artery. The remainder of the left vertebral artery is patent. Bones/joints: Degenerative disc disease and facet arthrosis throughout the cervical spine. Mild bony spinal stenosis at C5-C6 and C6-C7. Soft tissues: Normal. No significant soft tissue swelling. Upper mediastinum: Postoperative changes from previous CABG. Lungs: Cardiac pacer battery pack within the anterior right upper chest wall and leads within the superior vena cava. IMPRESSION: 1. Calcified plaque within the right and left proximal internal carotid arteries with less than 50% stenoses. 2. Minimal calcified plaque within the proximal vertebral arteries. REFERENCES: NASCET CRITERIA. The degree of internal carotid artery stenosis is based on NASCET criteria. Normal is no stenosis. Mild is less than 50% stenosis. Moderate is 50-69% stenosis. Severe is 70% to 99% stenosis. Total occlusion is no detectable patent lumen. Electronically signed by: Joseph Greene On 07/06/2020 18:15:13 PM TIME SPENT ON DISCHARGE: 30 MINUTES Vital Signs/I&Os Vital Signs Date Time Temp Pulse Resp B/P (MAP) Pulse Ox O2 Delivery O2 Flow Rate FiO2 07/08/20 08:57 102/ (34) 07/08/20 04:00 97.5 20 97 Room Air 07/07/20 00:12 71 I&O- Last 24 Hours up to 6 AM 07/08/20 06:00 Intake Total 600 ml Output Total 0 ml Balance 600 ml Laboratory Data Labs 24H Laboratory Tests 2 07/08/20 05:21: Nucleated Red Blood Cells % (auto) 0.0, Prothrombin Time 15.4H, Prothromb Time International Ratio 1.19, Anion Gap 6L, Glomerular Filtration Rate 56.1, Calcium Level 8.7, Magnesium Level 2.1 CBC/BMP Laboratory Tests 07/08/20 05:21 Discharge Medications Scheduled Allopurinol (Allopurinol) 100 Mg Tab, 100 MG PO DAILY, (Reported) Desvenlafaxine Succinate (Desvenlafaxine Succinate ER) 25 Mg Tab.er.24h, 25 MG PO DAILY, (Reported) Evolocumab (Repatha Sureclick) 140 Mg/1 Ml Pen.injctr, 1 DOSE INJ Q2WK, (Reported) Levothyroxine Sodium (Levothyroxine Sodium) 75 Mcg Tablet, 75 MCG PO QAM, (Reported) Potassium Chloride (Potassium Chloride) 20 Meq Tab.er.prt, 20 MEQ PO DAILY, (Reported) Spironolactone (Spironolactone) 25 Mg Tab, 25 MG PO DAILY, (Reported) Torsemide (Torsemide) 20 Mg Tab, 20 MG PO QAM, (Reported) Warfarin Sodium (Warfarin Sodium) 6 Mg Tablet, 6 MG PO 4XWK, (Reported) ,,WED,SUN Warfarin Sodium (Warfarin Sodium) 4 Mg Tablet, 8 MG PO 3XW, (Reported) MON,WED,FRI Allergies Coded Allergies: chlorhexidine (Verified Adverse Reaction, Intermediate, RASH-CHLORAPREP, 07/06/20) HENRRY WRIGHT MD Jul 08, 2020 12:09
== END 2020-07-08 12:54 | disposition home or self-care (01) | DRG 52 ==
LOC: M ED 16:08 → M ED INP 19:19 → ENRESERV 21:06 → M MSPAV 07-07 00:05 → M PCU 07-07 09:50
PROVIDERS: ADMIT Internal Medicine; ATTEND General Practice
DX: G45.4 Transient global amnesia (principal); I13.0 Hypertensive heart and chronic kidney disease with heart failure and stage 1 through stage 4 chronic kidney disease, or unspecified chronic kidney disease; I50.9 Heart failure, unspecified; N18.30 Chronic kidney disease, stage 3 unspecified; E66.01 Morbid (severe) obesity due to excess calories; Z68.42 Body mass index [BMI] 45.0-49.9, adult; G47.33 Obstructive sleep apnea (adult) (pediatric); E03.9 Hypothyroidism, unspecified; I25.10 Atherosclerotic heart disease of native coronary artery without angina pectoris; F32.9 Major depressive disorder, single episode, unspecified; Z79.899 Other long term (current) drug therapy; Z88.8 Allergy status to other drugs, medicaments and biological substances; E78.5 Hyperlipidemia, unspecified

== ENCOUNTER → 2020-07-11 | Outpatient (REF) | payer OTHER ==
[~2020-07-11] MED LIST changes: +DESV25TA PO; +HYDR-3911 PO; +LEVO75TA4 PO; +METO1TAB32 PO; +POTA20TA6 PO; +REPA140I2 INJ; +SELF1KIT MC; +WARF-20 PO; +WARF-60 PO
[2020-07-11 13:49] LABS: BASO # 0.1 10^3/uL (0.0-0.2); BASO % 0.6 % (0.0-1.0); HEMATOCRIT 48.8 % (42.0-52.0); HEMOGLOBIN 15.3 g/dl (13.5-17.5); LYMPH # 1.6 10^3/uL (1.5-5.0); LYMPH % 18.1 % (24.0-44.0); MEAN CORPUSCULAR HEMOGLOBIN 28.3 pg (27.0-33.0); MEAN CORPUSCULAR HGB CONC 31.4 g/dl (32.0-36.5); MEAN CORPUSCULAR VOLUME 90.4 fl (80.0-96.0); MONO % 10.9 % (0.0-5.0); NEUTROPHILS # 6.3 10^3/uL (1.5-8.5); NEUTROPHILS % 69.3 % (36.0-66.0); PLATELET COUNT, AUTOMATED 197 10^3/uL (150-450); WHITE BLOOD COUNT 9.1 10^3/uL (4.0-10.0)
[2020-07-11 13:58] LABS: INR 1.57; PROTHROMBIN TIME 19.1 SECONDS (12.5-14.3)
[2020-07-11 14:38] LABS: ALBUMIN 3.7 GM/DL (3.2-5.2); BILIRUBIN,TOTAL 0.4 MG/DL (0.2-1.0); CALCIUM LEVEL 9.1 MG/DL (8.5-10.1); CREATININE FOR GFR 1.57 MG/DL (0.70-1.30); GLOMERULAR FILTRATION RATE 48.4 (>56); MAGNESIUM LEVEL 2.4 MG/DL (1.8-2.4); TOTAL PROTEIN 7.6 GM/DL (6.4-8.2)
== END ==
LOC: M LABDRWAD 12:29
PROVIDERS: ATTEND Nurse Practitioner Acute Care
DX: Z95.811 Presence of heart assist device (principal); T82.897A Other specified complication of cardiac prosthetic devices, implants and grafts, initial encounter; D59.4 Other nonautoimmune hemolytic anemias; Z79.01 Long term (current) use of anticoagulants; I25.5 Ischemic cardiomyopathy

== ENCOUNTER → 2020-07-25 | Outpatient (REF) | payer OTHER ==
[2020-07-25 14:07] LABS: BASO # 0.1 10^3/uL (0.0-0.2); BASO % 0.6 % (0.0-1.0); HEMATOCRIT 49.6 % (42.0-52.0); HEMOGLOBIN 15.9 g/dl (13.5-17.5); LYMPH # 1.7 10^3/uL (1.5-5.0); LYMPH % 15.3 % (24.0-44.0); MEAN CORPUSCULAR HEMOGLOBIN 28.3 pg (27.0-33.0); MEAN CORPUSCULAR HGB CONC 32.1 g/dl (32.0-36.5); MEAN CORPUSCULAR VOLUME 88.3 fl (80.0-96.0); MONO # 1.3 10^3/uL (0.0-0.8); MONO % 11.7 % (0.0-5.0); NEUTROPHILS # 7.8 10^3/uL (1.5-8.5); NEUTROPHILS % 71.6 % (36.0-66.0); PLATELET COUNT, AUTOMATED 232 10^3/uL (150-450); RED BLOOD COUNT 5.62 10^6/uL (4.30-6.10); WHITE BLOOD COUNT 10.9 10^3/uL (4.0-10.0)
[2020-07-25 14:15] LABS: INR 2.19; PROTHROMBIN TIME 24.8 SECONDS (12.5-14.3)
[2020-07-25 14:36] LABS: ALBUMIN 4.1 GM/DL (3.2-5.2); BILIRUBIN,TOTAL 0.5 MG/DL (0.2-1.0); CALCIUM LEVEL 9.4 MG/DL (8.5-10.1); CREATININE FOR GFR 1.47 MG/DL (0.70-1.30); GLOMERULAR FILTRATION RATE 52.2 (>56); MAGNESIUM LEVEL 2.3 MG/DL (1.8-2.4); POTASSIUM SERUM 3.7 MEQ/L (3.5-5.1); TOTAL PROTEIN 7.8 GM/DL (6.4-8.2)
== END ==
LOC: M LABDRWAD 12:27
PROVIDERS: ATTEND Nurse Practitioner Acute Care
DX: Z95.811 Presence of heart assist device (principal); D59.4 Other nonautoimmune hemolytic anemias; T82.897A Other specified complication of cardiac prosthetic devices, implants and grafts, initial encounter; I25.5 Ischemic cardiomyopathy; Z79.01 Long term (current) use of anticoagulants

== ENCOUNTER → 2020-08-14 | Outpatient (REF) | payer OTHER ==
[2020-08-14 17:29] LABS: BASO # 0.1 10^3/uL (0.0-0.2); BASO % 0.6 % (0.0-1.0); HEMATOCRIT 46.6 % (42.0-52.0); HEMOGLOBIN 14.7 g/dl (13.5-17.5); LYMPH # 1.5 10^3/uL (1.5-5.0); LYMPH % 15.1 % (24.0-44.0); MEAN CORPUSCULAR HEMOGLOBIN 27.7 pg (27.0-33.0); MEAN CORPUSCULAR HGB CONC 31.5 g/dl (32.0-36.5); MEAN CORPUSCULAR VOLUME 87.8 fl (80.0-96.0); MONO # 0.9 10^3/uL (0.0-0.8); MONO % 8.8 % (0.0-5.0); NEUTROPHILS # 7.6 10^3/uL (1.5-8.5); NEUTROPHILS % 74.8 % (36.0-66.0); PLATELET COUNT, AUTOMATED 194 10^3/uL (150-450); RED BLOOD COUNT 5.31 10^6/uL (4.30-6.10); WHITE BLOOD COUNT 10.2 10^3/uL (4.0-10.0)
[2020-08-14 17:41] LABS: INR 2.12; PROTHROMBIN TIME 24.2 SECONDS (12.5-14.3)
[2020-08-14 18:01] LABS: BILIRUBIN,TOTAL 0.6 MG/DL (0.2-1.0); CALCIUM LEVEL 8.9 MG/DL (8.5-10.1); CREATININE FOR GFR 1.58 MG/DL (0.70-1.30); MAGNESIUM LEVEL 2.3 MG/DL (1.8-2.4); POTASSIUM SERUM 4.7 MEQ/L (3.5-5.1)
== END ==
LOC: M LAB REF 16:39 → M LABDRWAD 16:39
PROVIDERS: ATTEND Nurse Practitioner Acute Care
DX: I25.5 Ischemic cardiomyopathy (principal); Z79.01 Long term (current) use of anticoagulants; Z95.811 Presence of heart assist device; D59.4 Other nonautoimmune hemolytic anemias; T82.897A Other specified complication of cardiac prosthetic devices, implants and grafts, initial encounter

== ENCOUNTER → 2020-08-14 | Outpatient (REF) | payer OTHER ==
[2020-08-14 18:01] LABS: CHOLESTEROL RISK RATIO 2.787 (<5)
== END ==
LOC: M LABDRWAD 16:37
PROVIDERS: ATTEND Internal Medicine Cardiovascular Disease
DX: I25.10 Atherosclerotic heart disease of native coronary artery without angina pectoris (principal); E78.2 Mixed hyperlipidemia

== ENCOUNTER → 2020-09-05 | Outpatient (REF) | payer OTHER ==
[2020-09-05 12:51] LABS: BASO % 0.4 % (0.0-1.0); HEMATOCRIT 45.3 % (42.0-52.0); HEMOGLOBIN 14.2 g/dl (13.5-17.5); LYMPH # 1.6 10^3/uL (1.5-5.0); LYMPH % 14.7 % (24.0-44.0); MEAN CORPUSCULAR HEMOGLOBIN 27.6 pg (27.0-33.0); MEAN CORPUSCULAR HGB CONC 31.3 g/dl (32.0-36.5); MEAN CORPUSCULAR VOLUME 88.1 fl (80.0-96.0); MONO # 0.9 10^3/uL (0.0-0.8); MONO % 8.2 % (0.0-5.0); NEUTROPHILS # 8.2 10^3/uL (1.5-8.5); NEUTROPHILS % 76.1 % (36.0-66.0); PLATELET COUNT, AUTOMATED 220 10^3/uL (150-450); RED BLOOD COUNT 5.14 10^6/uL (4.30-6.10); WHITE BLOOD COUNT 10.8 10^3/uL (4.0-10.0)
[2020-09-05 13:15] LABS: INR 2.23; PROTHROMBIN TIME 25.2 SECONDS (12.5-14.3)
[2020-09-05 13:41] LABS: ALBUMIN 3.9 GM/DL (3.2-5.2); BILIRUBIN,TOTAL 0.6 MG/DL (0.2-1.0); CALCIUM LEVEL 8.9 MG/DL (8.5-10.1); CREATININE FOR GFR 1.52 MG/DL (0.70-1.30); GLOMERULAR FILTRATION RATE 50.2 (>56); MAGNESIUM LEVEL 2.1 MG/DL (1.8-2.4); POTASSIUM SERUM 4.3 MEQ/L (3.5-5.1); TOTAL PROTEIN 7.2 GM/DL (6.4-8.2)
== END ==
LOC: M LABDRWAD 12:16 → M LAB REF 12:16
PROVIDERS: ATTEND Nurse Practitioner Acute Care
DX: I25.5 Ischemic cardiomyopathy (principal); D59.4 Other nonautoimmune hemolytic anemias; T82.897A Other specified complication of cardiac prosthetic devices, implants and grafts, initial encounter; E83.42 Hypomagnesemia; Z79.899 Other long term (current) drug therapy; Z95.811 Presence of heart assist device; Z79.01 Long term (current) use of anticoagulants

== ENCOUNTER → 2020-09-23 | Outpatient (REF) | payer OTHER ==
[2020-09-23 13:41] LABS: BASO # 0.1 10^3/uL (0.0-0.2); BASO % 0.5 % (0.0-1.0); HEMATOCRIT 45.4 % (42.0-52.0); HEMOGLOBIN 14.7 g/dl (13.5-17.5); LYMPH # 1.6 10^3/uL (1.5-5.0); MEAN CORPUSCULAR HEMOGLOBIN 28.2 pg (27.0-33.0); MEAN CORPUSCULAR HGB CONC 32.4 g/dl (32.0-36.5); MEAN CORPUSCULAR VOLUME 87.1 fl (80.0-96.0); MONO # 0.9 10^3/uL (0.0-0.8); MONO % 8.9 % (0.0-8.0); NEUTROPHILS # 7.5 10^3/uL (1.5-8.5); NEUTROPHILS % 74.1 % (36.0-66.0); PLATELET COUNT, AUTOMATED 191 10^3/uL (150-450); RED BLOOD COUNT 5.21 10^6/uL (4.30-6.10); WHITE BLOOD COUNT 10.1 10^3/uL (4.0-10.0)
[2020-09-23 13:53] LABS: INR 1.99
[2020-09-23 14:01] LABS: ALBUMIN 3.9 GM/DL (3.2-5.2); BILIRUBIN,TOTAL 0.7 MG/DL (0.2-1.0); CALCIUM LEVEL 9.3 MG/DL (8.5-10.1); CREATININE FOR GFR 1.5 MG/DL (0.70-1.30); MAGNESIUM LEVEL 2.3 MG/DL (1.8-2.4); POTASSIUM SERUM 4.3 MEQ/L (3.5-5.1); TOTAL PROTEIN 7.3 GM/DL (6.4-8.2)
== END ==
LOC: M LABDRWAD 12:46
PROVIDERS: ATTEND Nurse Practitioner Acute Care
DX: Z95.811 Presence of heart assist device (principal); D59.4 Other nonautoimmune hemolytic anemias; T82.897A Other specified complication of cardiac prosthetic devices, implants and grafts, initial encounter; Z79.01 Long term (current) use of anticoagulants; I25.5 Ischemic cardiomyopathy; E83.42 Hypomagnesemia; Z79.899 Other long term (current) drug therapy

== ENCOUNTER → 2020-10-07 | Outpatient (REF) | payer OTHER ==
[2020-10-07 19:08] LABS: BASO # 0.1 10^3/uL (0.0-0.2); BASO % 0.5 % (0.0-1.0); HEMATOCRIT 47.9 % (42.0-52.0); LYMPH # 1.9 10^3/uL (1.5-5.0); LYMPH % 16.4 % (24.0-44.0); MEAN CORPUSCULAR HEMOGLOBIN 27.8 pg (27.0-33.0); MEAN CORPUSCULAR HGB CONC 31.3 g/dl (32.0-36.5); MEAN CORPUSCULAR VOLUME 88.9 fl (80.0-96.0); NEUTROPHILS # 8.3 10^3/uL (1.5-8.5); NEUTROPHILS % 73.7 % (36.0-66.0); PLATELET COUNT, AUTOMATED 204 10^3/uL (150-450); RED BLOOD COUNT 5.39 10^6/uL (4.30-6.10); WHITE BLOOD COUNT 11.3 10^3/uL (4.0-10.0)
[2020-10-07 19:19] LABS: INR 2.53; PROTHROMBIN TIME 27.8 SECONDS (12.5-14.3)
[2020-10-07 19:42] LABS: ALBUMIN 4.1 GM/DL (3.2-5.2); BILIRUBIN,TOTAL 0.5 MG/DL (0.2-1.0); CALCIUM LEVEL 9.2 MG/DL (8.5-10.1); CREATININE FOR GFR 1.46 MG/DL (0.70-1.30); GLOMERULAR FILTRATION RATE 52.6 (>56); MAGNESIUM LEVEL 2.3 MG/DL (1.8-2.4); POTASSIUM SERUM 4.1 MEQ/L (3.5-5.1); TOTAL PROTEIN 7.4 GM/DL (6.4-8.2)
== END ==
LOC: M LAB REF 16:07 → M LABDRWAD 16:07
PROVIDERS: ATTEND Nurse Practitioner Acute Care
DX: Z79.899 Other long term (current) drug therapy (principal); E83.42 Hypomagnesemia; Z95.811 Presence of heart assist device; Z79.01 Long term (current) use of anticoagulants; I25.5 Ischemic cardiomyopathy; T82.897A Other specified complication of cardiac prosthetic devices, implants and grafts, initial encounter; D59.4 Other nonautoimmune hemolytic anemias

== ENCOUNTER → 2020-10-22 | Outpatient (REF) | payer OTHER ==
[2020-10-22 17:48] LABS: BASO # 0.1 10^3/uL (0.0-0.2); BASO % 0.5 % (0.0-1.0); HEMATOCRIT 47.7 % (42.0-52.0); HEMOGLOBIN 15.3 g/dl (13.5-17.5); LYMPH # 1.8 10^3/uL (1.5-5.0); LYMPH % 17.1 % (24.0-44.0); MEAN CORPUSCULAR HEMOGLOBIN 28.3 pg (27.0-33.0); MEAN CORPUSCULAR HGB CONC 32.1 g/dl (32.0-36.5); MEAN CORPUSCULAR VOLUME 88.3 fl (80.0-96.0); MONO # 0.9 10^3/uL (0.0-0.8); MONO % 8.1 % (2.0-8.0); NEUTROPHILS # 7.8 10^3/uL (1.5-8.5); NEUTROPHILS % 73.6 % (36.0-66.0); PLATELET COUNT, AUTOMATED 209 10^3/uL (150-450); WHITE BLOOD COUNT 10.5 10^3/uL (4.0-10.0)
[2020-10-22 17:58] LABS: INR 2.24; PROTHROMBIN TIME 25.3 SECONDS (12.5-14.3)
[2020-10-22 18:10] LABS: ALBUMIN 4.2 GM/DL (3.2-5.2); BILIRUBIN,TOTAL 0.7 MG/DL (0.2-1.0); CALCIUM LEVEL 9.2 MG/DL (8.5-10.1); CREATININE FOR GFR 1.51 MG/DL (0.70-1.30); GLOMERULAR FILTRATION RATE 50.6 (>56); MAGNESIUM LEVEL 2.3 MG/DL (1.8-2.4); POTASSIUM SERUM 4.2 MEQ/L (3.5-5.1); TOTAL PROTEIN 7.6 GM/DL (6.4-8.2)
== END ==
LOC: M LABDRWAD 17:06
PROVIDERS: ATTEND Nurse Practitioner Acute Care
DX: Z95.811 Presence of heart assist device (principal); D59.4 Other nonautoimmune hemolytic anemias; T82.897A Other specified complication of cardiac prosthetic devices, implants and grafts, initial encounter; Z79.01 Long term (current) use of anticoagulants; I25.5 Ischemic cardiomyopathy

== ENCOUNTER → 2020-11-12 | Outpatient (REF) | payer OTHER ==
[~2020-11-12] MED LIST changes: -ACET-838 PO; +ACET32TAB PO
[2020-11-12 13:06] LABS: BASO # 0.1 10^3/uL (0.0-0.2); BASO % 0.5 % (0.0-1.0); HEMOGLOBIN 14.6 g/dl (13.5-17.5); LYMPH # 1.5 10^3/uL (1.5-5.0); LYMPH % 15.1 % (24.0-44.0); MEAN CORPUSCULAR HEMOGLOBIN 28.3 pg (27.0-33.0); MEAN CORPUSCULAR HGB CONC 31.7 g/dl (32.0-36.5); MEAN CORPUSCULAR VOLUME 89.1 fl (80.0-96.0); MONO # 0.8 10^3/uL (0.0-0.8); MONO % 7.9 % (2.0-8.0); NEUTROPHILS # 7.7 10^3/uL (1.5-8.5); NEUTROPHILS % 75.6 % (36.0-66.0); PLATELET COUNT, AUTOMATED 205 10^3/uL (150-450); RED BLOOD COUNT 5.16 10^6/uL (4.30-6.10); WHITE BLOOD COUNT 10.1 10^3/uL (4.0-10.0)
[2020-11-12 13:14] LABS: INR 2.61; PROTHROMBIN TIME 28.6 SECONDS (12.5-14.3)
[2020-11-12 13:40] LABS: ALBUMIN 3.8 GM/DL (3.2-5.2); BILIRUBIN,TOTAL 0.4 MG/DL (0.2-1.0); CREATININE FOR GFR 1.4 MG/DL (0.70-1.30); GLOMERULAR FILTRATION RATE 55.2 (>56); MAGNESIUM LEVEL 2.3 MG/DL (1.8-2.4); POTASSIUM SERUM 4.3 MEQ/L (3.5-5.1); TOTAL PROTEIN 7.2 GM/DL (6.4-8.2)
== END ==
LOC: M LABDRWAD 12:23
PROVIDERS: ATTEND Nurse Practitioner Acute Care
DX: D59.4 Other nonautoimmune hemolytic anemias (principal); T82.897A Other specified complication of cardiac prosthetic devices, implants and grafts, initial encounter; E83.42 Hypomagnesemia; I25.5 Ischemic cardiomyopathy; Z95.811 Presence of heart assist device; Z79.01 Long term (current) use of anticoagulants; Z79.899 Other long term (current) drug therapy

== ENCOUNTER → 2020-12-12 | Outpatient (REF) | payer OTHER ==
[2020-12-12 13:26] LABS: BASO # 0.1 10^3/uL (0.0-0.2); BASO % 0.5 % (0.0-1.0); HEMATOCRIT 44.3 % (42.0-52.0); HEMOGLOBIN 14.1 g/dl (13.5-17.5); LYMPH # 1.6 10^3/uL (1.5-5.0); LYMPH % 15.8 % (24.0-44.0); MEAN CORPUSCULAR HEMOGLOBIN 27.9 pg (27.0-33.0); MEAN CORPUSCULAR HGB CONC 31.8 g/dl (32.0-36.5); MEAN CORPUSCULAR VOLUME 87.7 fl (80.0-96.0); MONO % 10.1 % (2.0-8.0); NEUTROPHILS # 7.3 10^3/uL (1.5-8.5); PLATELET COUNT, AUTOMATED 188 10^3/uL (150-450); RED BLOOD COUNT 5.05 10^6/uL (4.30-6.10); WHITE BLOOD COUNT 10.1 10^3/uL (4.0-10.0)
[2020-12-12 13:39] LABS: INR 2.22; PROTHROMBIN TIME 25.1 SECONDS (12.5-14.3)
[2020-12-12 13:54] LABS: ALBUMIN 3.8 GM/DL (3.2-5.2); BILIRUBIN,TOTAL 0.4 MG/DL (0.2-1.0); CALCIUM LEVEL 9.1 MG/DL (8.5-10.1); CREATININE FOR GFR 1.48 MG/DL (0.70-1.30); GLOMERULAR FILTRATION RATE 51.8 (>56); MAGNESIUM LEVEL 2.3 MG/DL (1.8-2.4); POTASSIUM SERUM 3.7 MEQ/L (3.5-5.1)
== END ==
LOC: M LABDRWAD 12:20
PROVIDERS: ATTEND Nurse Practitioner Acute Care
DX: I25.5 Ischemic cardiomyopathy (principal); E83.42 Hypomagnesemia; D59.4 Other nonautoimmune hemolytic anemias; T82.897A Other specified complication of cardiac prosthetic devices, implants and grafts, initial encounter; Z95.811 Presence of heart assist device; Z79.899 Other long term (current) drug therapy; Z79.01 Long term (current) use of anticoagulants

== ENCOUNTER → 2020-12-24 | Outpatient (REF) | payer OTHER ==
[2020-12-24 12:43] LABS: BASO % 0.5 % (0.0-1.0); HEMATOCRIT 44.6 % (42.0-52.0); HEMOGLOBIN 14.1 g/dl (13.5-17.5); LYMPH # 1.4 10^3/uL (1.5-5.0); LYMPH % 15.9 % (24.0-44.0); MEAN CORPUSCULAR HEMOGLOBIN 27.6 pg (27.0-33.0); MEAN CORPUSCULAR HGB CONC 31.6 g/dl (32.0-36.5); MEAN CORPUSCULAR VOLUME 87.3 fl (80.0-96.0); MONO # 0.8 10^3/uL (0.0-0.8); MONO % 9.1 % (2.0-8.0); NEUTROPHILS # 6.5 10^3/uL (1.5-8.5); PLATELET COUNT, AUTOMATED 194 10^3/uL (150-450); RED BLOOD COUNT 5.11 10^6/uL (4.30-6.10); WHITE BLOOD COUNT 8.8 10^3/uL (4.0-10.0)
[2020-12-24 12:57] LABS: INR 2.47; PROTHROMBIN TIME 27.3 SECONDS (12.5-14.3)
[2020-12-24 13:24] LABS: ALBUMIN 3.7 GM/DL (3.2-5.2); ALT/SGPT 36 U/L (12-78); BILIRUBIN,TOTAL 0.6 MG/DL (0.2-1.0); BLOOD UREA NITROGEN 19 MG/DL (7-18); CALCIUM LEVEL 8.3 MG/DL (8.5-10.1); CARBON DIOXIDE LEVEL 25 MEQ/L (21-32); CHLORIDE LEVEL 104 MEQ/L (98-107); CREATININE FOR GFR 1.27 MG/DL (0.70-1.30); GLOMERULAR FILTRATION RATE > 60.0 (>56); GLUCOSE, FASTING 96 MG/DL (70-100); LDH LACTATE DEHYDROGENASE 229 U/L (87-241); MAGNESIUM LEVEL 2.1 MG/DL (1.8-2.4); POTASSIUM SERUM 4.2 MEQ/L (3.5-5.1); SODIUM LEVEL 139 MEQ/L (136-145); TOTAL PROTEIN 6.8 GM/DL (6.4-8.2)
== END ==
LOC: M LABDRWAD 12:12
PROVIDERS: ATTEND Nurse Practitioner Acute Care
DX: D59.4 Other nonautoimmune hemolytic anemias (principal); T82.897A Other specified complication of cardiac prosthetic devices, implants and grafts, initial encounter; I25.5 Ischemic cardiomyopathy; E83.42 Hypomagnesemia; Z95.811 Presence of heart assist device; Z79.01 Long term (current) use of anticoagulants; Z79.899 Other long term (current) drug therapy

== ENCOUNTER → 2021-01-14 | Outpatient (REF) | payer OTHER ==
[2021-01-14 16:45] LABS: BASO % 0.4 % (0.0-1.0); HEMATOCRIT 44.7 % (42.0-52.0); HEMOGLOBIN 14.5 g/dl (13.5-17.5); LYMPH # 1.4 10^3/uL (1.5-5.0); LYMPH % 14.2 % (24.0-44.0); MEAN CORPUSCULAR HEMOGLOBIN 28.3 pg (27.0-33.0); MEAN CORPUSCULAR HGB CONC 32.4 g/dl (32.0-36.5); MEAN CORPUSCULAR VOLUME 87.1 fl (80.0-96.0); MONO # 0.9 10^3/uL (0.0-0.8); MONO % 9.3 % (2.0-8.0); NEUTROPHILS # 7.6 10^3/uL (1.5-8.5); NEUTROPHILS % 75.3 % (36.0-66.0); PLATELET COUNT, AUTOMATED 186 10^3/uL (150-450); RED BLOOD COUNT 5.13 10^6/uL (4.30-6.10); WHITE BLOOD COUNT 10.1 10^3/uL (4.0-10.0)
[2021-01-14 16:56] LABS: INR 2.15; PROTHROMBIN TIME 24.5 SECONDS (12.5-14.3)
[2021-01-14 17:27] LABS: ALBUMIN 3.6 GM/DL (3.2-5.2); BILIRUBIN,TOTAL 0.6 MG/DL (0.2-1.0); CALCIUM LEVEL 8.8 MG/DL (8.5-10.1); CREATININE FOR GFR 1.41 MG/DL (0.70-1.30); GLOMERULAR FILTRATION RATE 54.8 (>56); MAGNESIUM LEVEL 2.3 MG/DL (1.8-2.4); POTASSIUM SERUM 4.1 MEQ/L (3.5-5.1)
== END ==
LOC: M LABDRWAD 16:21
PROVIDERS: ATTEND Nurse Practitioner Acute Care
DX: I25.5 Ischemic cardiomyopathy (principal); Z95.811 Presence of heart assist device; D59.4 Other nonautoimmune hemolytic anemias; Z79.01 Long term (current) use of anticoagulants

== ENCOUNTER → 2021-01-31 | Outpatient (REF) | payer OTHER ==
[2021-01-31 13:10] LABS: BASO # 0.1 10^3/uL (0.0-0.2); BASO % 0.5 % (0.0-1.0); EOS % 0.1 % (0.0-3.0); HEMATOCRIT 42.1 % (42.0-52.0); HEMOGLOBIN 13.3 g/dl (13.5-17.5); LYMPH # 1.5 10^3/uL (1.5-5.0); LYMPH % 16.1 % (24.0-44.0); MEAN CORPUSCULAR HEMOGLOBIN 27.7 pg (27.0-33.0); MEAN CORPUSCULAR HGB CONC 31.6 g/dl (32.0-36.5); MEAN CORPUSCULAR VOLUME 87.7 fl (80.0-96.0); MONO % 10.6 % (2.0-8.0); NEUTROPHILS # 6.6 10^3/uL (1.5-8.5); NEUTROPHILS % 72.3 % (36.0-66.0); PLATELET COUNT, AUTOMATED 176 10^3/uL (150-450); WHITE BLOOD COUNT 9.2 10^3/uL (4.0-10.0)
[2021-01-31 13:22] LABS: INR 2.23; PROTHROMBIN TIME 25.2 SECONDS (12.5-14.3)
[2021-01-31 13:47] LABS: ALBUMIN 3.7 GM/DL (3.2-5.2); BILIRUBIN,TOTAL 0.7 MG/DL (0.2-1.0); CALCIUM LEVEL 8.3 MG/DL (8.8-10.2); CREATININE FOR GFR 1.37 MG/DL (0.70-1.30); GLOMERULAR FILTRATION RATE 56.4 (>49); MAGNESIUM LEVEL 2.4 MG/DL (1.8-2.4); POTASSIUM SERUM 4.1 MEQ/L (3.5-5.1); TOTAL PROTEIN 6.8 GM/DL (6.4-8.2)
== END ==
LOC: M LABDRWAD 12:21
PROVIDERS: ATTEND Nurse Practitioner Acute Care
DX: Z95.811 Presence of heart assist device (principal); T82.897A Other specified complication of cardiac prosthetic devices, implants and grafts, initial encounter; D59.4 Other nonautoimmune hemolytic anemias; Z79.899 Other long term (current) drug therapy; Z79.01 Long term (current) use of anticoagulants; E83.42 Hypomagnesemia; I25.5 Ischemic cardiomyopathy

== ENCOUNTER → 2021-02-14 | Outpatient (REF) | payer OTHER ==
[2021-02-14 13:13] LABS: BASO % 0.4 % (0.0-1.0); HEMATOCRIT 44.7 % (42.0-52.0); HEMOGLOBIN 14.3 g/dl (13.5-17.5); LYMPH # 1.4 10^3/uL (1.5-5.0); LYMPH % 14.5 % (24.0-44.0); MEAN CORPUSCULAR HEMOGLOBIN 27.7 pg (27.0-33.0); MEAN CORPUSCULAR VOLUME 86.5 fl (80.0-96.0); MONO # 0.9 10^3/uL (0.0-0.8); MONO % 9.6 % (2.0-8.0); NEUTROPHILS # 7.1 10^3/uL (1.5-8.5); NEUTROPHILS % 74.8 % (36.0-66.0); PLATELET COUNT, AUTOMATED 202 10^3/uL (150-450); RED BLOOD COUNT 5.17 10^6/uL (4.30-6.10); WHITE BLOOD COUNT 9.5 10^3/uL (4.0-10.0)
[2021-02-14 13:24] LABS: INR 2.35; PROTHROMBIN TIME 26.3 SECONDS (12.5-14.3)
[2021-02-14 13:47] LABS: BILIRUBIN,TOTAL 0.5 MG/DL (0.2-1.0); CALCIUM LEVEL 9.4 MG/DL (8.8-10.2); CREATININE FOR GFR 1.42 MG/DL (0.70-1.30); GLOMERULAR FILTRATION RATE 54.1 (>49); MAGNESIUM LEVEL 2.2 MG/DL (1.8-2.4); POTASSIUM SERUM 4.2 MEQ/L (3.5-5.1); TOTAL PROTEIN 7.4 GM/DL (6.4-8.2)
== END ==
LOC: M LABDRWAD 12:51
PROVIDERS: ATTEND Nurse Practitioner Acute Care
DX: Z95.811 Presence of heart assist device (principal); T82.897A Other specified complication of cardiac prosthetic devices, implants and grafts, initial encounter; D59.4 Other nonautoimmune hemolytic anemias; Z79.899 Other long term (current) drug therapy; Z79.01 Long term (current) use of anticoagulants; E83.42 Hypomagnesemia; I25.5 Ischemic cardiomyopathy

== ENCOUNTER → 2021-02-17 | Outpatient (REF) | payer OTHER | LOC: M LAB REF 16:15 | PROVIDERS: ATTEND Internal Medicine | DX: D72.829 Elevated white blood cell count, unspecified (principal) ==

== ENCOUNTER → 2021-03-12 | Outpatient (REF) | payer OTHER ==
[2021-03-12 18:54] LABS: BASO # 0.1 10^3/uL (0.0-0.2); BASO % 0.5 % (0.0-1.0); HEMATOCRIT 45.8 % (42.0-52.0); HEMOGLOBIN 14.4 g/dl (13.5-17.5); LYMPH # 1.6 10^3/uL (1.5-5.0); MEAN CORPUSCULAR HEMOGLOBIN 27.7 pg (27.0-33.0); MEAN CORPUSCULAR HGB CONC 31.4 g/dl (32.0-36.5); MEAN CORPUSCULAR VOLUME 88.1 fl (80.0-96.0); MONO # 0.9 10^3/uL (0.0-0.8); MONO % 7.8 % (2.0-8.0); NEUTROPHILS # 8.3 10^3/uL (1.5-8.5); NEUTROPHILS % 76.1 % (36.0-66.0); PLATELET COUNT, AUTOMATED 213 10^3/uL (150-450); WHITE BLOOD COUNT 10.8 10^3/uL (4.0-10.0)
[2021-03-12 19:03] LABS: ALBUMIN 3.9 GM/DL (3.2-5.2); BILIRUBIN,TOTAL 0.5 MG/DL (0.2-1.0); CALCIUM LEVEL 9.2 MG/DL (8.8-10.2); CREATININE FOR GFR 1.41 MG/DL (0.70-1.30); GLOMERULAR FILTRATION RATE 54.6 (>49); MAGNESIUM LEVEL 2.3 MG/DL (1.8-2.4); POTASSIUM SERUM 4.2 MEQ/L (3.5-5.1); TOTAL PROTEIN 7.2 GM/DL (6.4-8.2)
[2021-03-12 19:05] LABS: INR 1.87; PROTHROMBIN TIME 21.9 SECONDS (12.7-14.5)
== END ==
LOC: M LABDRWAD 17:16
PROVIDERS: ATTEND Nurse Practitioner Acute Care
DX: Z95.811 Presence of heart assist device (principal); D59.4 Other nonautoimmune hemolytic anemias; Z79.01 Long term (current) use of anticoagulants; I25.5 Ischemic cardiomyopathy; E83.42 Hypomagnesemia; Z79.899 Other long term (current) drug therapy; T82.897A Other specified complication of cardiac prosthetic devices, implants and grafts, initial encounter

== ENCOUNTER → 2021-03-26 | Outpatient (REF) | payer OTHER ==
[2021-03-26 17:08] LABS: BASO # 0.1 10^3/uL (0.0-0.2); BASO % 0.5 % (0.0-1.0); HEMATOCRIT 44.7 % (42.0-52.0); HEMOGLOBIN 14.1 g/dl (13.5-17.5); LYMPH # 1.5 10^3/uL (1.5-5.0); LYMPH % 14.9 % (24.0-44.0); MEAN CORPUSCULAR HEMOGLOBIN 27.6 pg (27.0-33.0); MEAN CORPUSCULAR HGB CONC 31.5 g/dl (32.0-36.5); MEAN CORPUSCULAR VOLUME 87.6 fl (80.0-96.0); MONO # 0.9 10^3/uL (0.0-0.8); MONO % 8.8 % (2.0-8.0); NEUTROPHILS # 7.6 10^3/uL (1.5-8.5); NEUTROPHILS % 75.3 % (36.0-66.0); PLATELET COUNT, AUTOMATED 233 10^3/uL (150-450); WHITE BLOOD COUNT 10.1 10^3/uL (4.0-10.0)
[2021-03-26 17:21] LABS: INR 1.76
[2021-03-26 17:33] LABS: ALBUMIN 3.8 GM/DL (3.2-5.2); BILIRUBIN,TOTAL 0.4 MG/DL (0.2-1.0); CALCIUM LEVEL 8.5 MG/DL (8.8-10.2); CREATININE FOR GFR 1.83 MG/DL (0.70-1.30); GLOMERULAR FILTRATION RATE 40.4 (>49); MAGNESIUM LEVEL 2.3 MG/DL (1.8-2.4); POTASSIUM SERUM 4.3 MEQ/L (3.5-5.1); TOTAL PROTEIN 6.9 GM/DL (6.4-8.2)
== END ==
LOC: M LABDRWAD 16:42
PROVIDERS: ATTEND Nurse Practitioner Acute Care
DX: Z95.811 Presence of heart assist device (principal); D59.4 Other nonautoimmune hemolytic anemias; T82.897A Other specified complication of cardiac prosthetic devices, implants and grafts, initial encounter; Z79.899 Other long term (current) drug therapy; Z79.01 Long term (current) use of anticoagulants; E83.42 Hypomagnesemia; I25.5 Ischemic cardiomyopathy

== ENCOUNTER → 2021-04-02 | Outpatient (REF) | payer OTHER ==
[2021-04-02 12:55] LABS: BASO % 0.3 % (0.0-1.0); HEMATOCRIT 44.5 % (42.0-52.0); HEMOGLOBIN 14.3 g/dl (13.5-17.5); LYMPH # 1.5 10^3/uL (1.5-5.0); LYMPH % 15.3 % (24.0-44.0); MEAN CORPUSCULAR HEMOGLOBIN 27.9 pg (27.0-33.0); MEAN CORPUSCULAR HGB CONC 32.1 g/dl (32.0-36.5); MEAN CORPUSCULAR VOLUME 86.7 fl (80.0-96.0); MONO % 9.8 % (2.0-8.0); NEUTROPHILS # 7.3 10^3/uL (1.5-8.5); PLATELET COUNT, AUTOMATED 212 10^3/uL (150-450); RED BLOOD COUNT 5.13 10^6/uL (4.30-6.10); WHITE BLOOD COUNT 9.8 10^3/uL (4.0-10.0)
[2021-04-02 13:02] LABS: INR 1.68; PROTHROMBIN TIME 20.2 SECONDS (12.7-14.5)
[2021-04-02 13:28] LABS: ALBUMIN 3.8 GM/DL (3.2-5.2); BILIRUBIN,TOTAL 0.6 MG/DL (0.2-1.0); CALCIUM LEVEL 9.3 MG/DL (8.8-10.2); CREATININE FOR GFR 1.37 MG/DL (0.70-1.30); GLOMERULAR FILTRATION RATE 56.4 (>49); MAGNESIUM LEVEL 2.5 MG/DL (1.8-2.4); POTASSIUM SERUM 4.1 MEQ/L (3.5-5.1); TOTAL PROTEIN 7.1 GM/DL (6.4-8.2)
== END ==
LOC: M LABDRWAD 12:34
PROVIDERS: ATTEND Nurse Practitioner Acute Care
DX: Z95.811 Presence of heart assist device (principal); T82.897A Other specified complication of cardiac prosthetic devices, implants and grafts, initial encounter; D59.4 Other nonautoimmune hemolytic anemias; Z79.899 Other long term (current) drug therapy; Z79.01 Long term (current) use of anticoagulants; E83.42 Hypomagnesemia; I25.5 Ischemic cardiomyopathy

== ENCOUNTER → 2021-04-10 | Outpatient (REF) | payer OTHER ==
[2021-04-10 15:39] LABS: BASO # 0.1 10^3/uL (0.0-0.2); BASO % 0.5 % (0.0-1.0); HEMATOCRIT 45.7 % (42.0-52.0); HEMOGLOBIN 14.5 g/dl (13.5-17.5); LYMPH # 1.5 10^3/uL (1.5-5.0); LYMPH % 15.7 % (24.0-44.0); MEAN CORPUSCULAR HEMOGLOBIN 27.5 pg (27.0-33.0); MEAN CORPUSCULAR HGB CONC 31.7 g/dl (32.0-36.5); MEAN CORPUSCULAR VOLUME 86.7 fl (80.0-96.0); MONO # 0.9 10^3/uL (0.0-0.8); NEUTROPHILS # 7.2 10^3/uL (1.5-8.5); NEUTROPHILS % 74.2 % (36.0-66.0); PLATELET COUNT, AUTOMATED 194 10^3/uL (150-450); RED BLOOD COUNT 5.27 10^6/uL (4.30-6.10); WHITE BLOOD COUNT 9.7 10^3/uL (4.0-10.0)
[2021-04-10 15:56] LABS: INR 2.4; PROTHROMBIN TIME 26.5 SECONDS (12.7-14.5)
[2021-04-10 16:15] LABS: ALBUMIN 3.8 GM/DL (3.2-5.2); BILIRUBIN,TOTAL 0.5 MG/DL (0.2-1.0); CALCIUM LEVEL 9.1 MG/DL (8.8-10.2); CREATININE FOR GFR 1.37 MG/DL (0.70-1.30); GLOMERULAR FILTRATION RATE 56.4 (>49); MAGNESIUM LEVEL 2.4 MG/DL (1.8-2.4); POTASSIUM SERUM 4.1 MEQ/L (3.5-5.1); TOTAL PROTEIN 7.3 GM/DL (6.4-8.2)
== END ==
LOC: M LABDRWAD 14:47
PROVIDERS: ATTEND Nurse Practitioner Acute Care
DX: D59.4 Other nonautoimmune hemolytic anemias (principal); Z95.811 Presence of heart assist device; T82.897A Other specified complication of cardiac prosthetic devices, implants and grafts, initial encounter; Z79.899 Other long term (current) drug therapy; Z79.01 Long term (current) use of anticoagulants; E83.42 Hypomagnesemia; I25.5 Ischemic cardiomyopathy

== ENCOUNTER → 2021-04-24 | Outpatient (REF) | payer OTHER ==
[2021-04-24 17:28] LABS: BASO # 0.1 10^3/uL (0.0-0.2); BASO % 0.4 % (0.0-1.0); HEMATOCRIT 42.9 % (42.0-52.0); HEMOGLOBIN 13.7 g/dl (13.5-17.5); LYMPH # 1.8 10^3/uL (1.5-5.0); LYMPH % 13.9 % (24.0-44.0); MEAN CORPUSCULAR HEMOGLOBIN 27.5 pg (27.0-33.0); MEAN CORPUSCULAR HGB CONC 31.9 g/dl (32.0-36.5); MEAN CORPUSCULAR VOLUME 86.1 fl (80.0-96.0); MONO # 1.4 10^3/uL (0.0-0.8); MONO % 10.6 % (2.0-8.0); NEUTROPHILS # 9.8 10^3/uL (1.5-8.5); NEUTROPHILS % 74.4 % (36.0-66.0); PLATELET COUNT, AUTOMATED 221 10^3/uL (150-450); RED BLOOD COUNT 4.98 10^6/uL (4.30-6.10); WHITE BLOOD COUNT 13.2 10^3/uL (4.0-10.0)
[2021-04-24 17:40] LABS: INR 1.89; PROTHROMBIN TIME 22.1 SECONDS (12.7-14.5)
[2021-04-24 17:51] LABS: ALBUMIN 3.4 GM/DL (3.2-5.2); BILIRUBIN,TOTAL 0.6 MG/DL (0.2-1.0); CALCIUM LEVEL 8.6 MG/DL (8.8-10.2); CREATININE FOR GFR 1.45 MG/DL (0.70-1.30); GLOMERULAR FILTRATION RATE 52.8 (>49); MAGNESIUM LEVEL 2.4 MG/DL (1.8-2.4); TOTAL PROTEIN 6.7 GM/DL (6.4-8.2)
== END ==
LOC: M LABDRWAD 16:48
PROVIDERS: ATTEND Nurse Practitioner Acute Care
DX: D59.4 Other nonautoimmune hemolytic anemias (principal); Z95.811 Presence of heart assist device; T82.897A Other specified complication of cardiac prosthetic devices, implants and grafts, initial encounter; Z79.01 Long term (current) use of anticoagulants; I25.5 Ischemic cardiomyopathy; E83.42 Hypomagnesemia

== ENCOUNTER → 2021-04-30 | Outpatient (REF) | payer OTHER ==
[2021-04-30 19:11] LABS: BASO # 0.1 10^3/uL (0.0-0.2); BASO % 0.5 % (0.0-1.0); HEMATOCRIT 43.5 % (42.0-52.0); LYMPH # 1.8 10^3/uL (1.5-5.0); LYMPH % 12.6 % (24.0-44.0); MEAN CORPUSCULAR HEMOGLOBIN 27.9 pg (27.0-33.0); MEAN CORPUSCULAR HGB CONC 32.2 g/dl (32.0-36.5); MEAN CORPUSCULAR VOLUME 86.7 fl (80.0-96.0); MONO # 1.6 10^3/uL (0.0-0.8); MONO % 10.6 % (2.0-8.0); NEUTROPHILS # 11.1 10^3/uL (1.5-8.5); NEUTROPHILS % 75.8 % (36.0-66.0); PLATELET COUNT, AUTOMATED 221 10^3/uL (150-450); RED BLOOD COUNT 5.02 10^6/uL (4.30-6.10); WHITE BLOOD COUNT 14.6 10^3/uL (4.0-10.0)
[2021-04-30 19:25] LABS: INR 2.33; PROTHROMBIN TIME 25.9 SECONDS (12.7-14.5)
[2021-04-30 19:38] LABS: ALBUMIN 3.6 GM/DL (3.2-5.2); BILIRUBIN,TOTAL 0.5 MG/DL (0.2-1.0); CREATININE FOR GFR 1.58 MG/DL (0.70-1.30); GLOMERULAR FILTRATION RATE 47.9 (>49); MAGNESIUM LEVEL 2.3 MG/DL (1.8-2.4); POTASSIUM SERUM 4.1 MEQ/L (3.5-5.1); TOTAL PROTEIN 6.8 GM/DL (6.4-8.2)
[2021-05-01 16:36] LABS: C REACTIVE PROTEIN QUANTITATIV 0.49 MG/DL (0.00-0.30)
== END ==
LOC: M LABDRWAD 18:38
PROVIDERS: ATTEND Nurse Practitioner Acute Care
DX: E83.42 Hypomagnesemia (principal); Z95.811 Presence of heart assist device; D59.4 Other nonautoimmune hemolytic anemias; T82.897A Other specified complication of cardiac prosthetic devices, implants and grafts, initial encounter; Z79.899 Other long term (current) drug therapy; Z79.01 Long term (current) use of anticoagulants

== ENCOUNTER → 2021-05-07 | Outpatient (REF) | payer OTHER ==
[2021-05-07 13:14] LABS: BASO % 0.4 % (0.0-1.0); HEMATOCRIT 46.9 % (42.0-52.0); HEMOGLOBIN 14.8 g/dl (13.5-17.5); LYMPH # 1.6 10^3/uL (1.5-5.0); LYMPH % 15.5 % (24.0-44.0); MEAN CORPUSCULAR HEMOGLOBIN 27.7 pg (27.0-33.0); MEAN CORPUSCULAR HGB CONC 31.6 g/dl (32.0-36.5); MEAN CORPUSCULAR VOLUME 87.8 fl (80.0-96.0); MONO # 0.9 10^3/uL (0.0-0.8); MONO % 8.4 % (2.0-8.0); NEUTROPHILS # 7.6 10^3/uL (1.5-8.5); PLATELET COUNT, AUTOMATED 210 10^3/uL (150-450); RED BLOOD COUNT 5.34 10^6/uL (4.30-6.10); WHITE BLOOD COUNT 10.2 10^3/uL (4.0-10.0)
[2021-05-07 13:25] LABS: INR 2.34
[2021-05-07 13:27] LABS: ALBUMIN 3.9 GM/DL (3.2-5.2); BILIRUBIN,TOTAL 0.6 MG/DL (0.2-1.0); CREATININE FOR GFR 1.46 MG/DL (0.70-1.30); GLOMERULAR FILTRATION RATE 52.4 (>49); MAGNESIUM LEVEL 2.3 MG/DL (1.8-2.4); POTASSIUM SERUM 4.3 MEQ/L (3.5-5.1); TOTAL PROTEIN 7.4 GM/DL (6.4-8.2)
== END ==
LOC: M LABDRWAD 12:25
PROVIDERS: ATTEND Nurse Practitioner Acute Care
DX: Z95.811 Presence of heart assist device (principal); T82.897A Other specified complication of cardiac prosthetic devices, implants and grafts, initial encounter; D59.4 Other nonautoimmune hemolytic anemias; Z79.899 Other long term (current) drug therapy; Z79.01 Long term (current) use of anticoagulants; E83.42 Hypomagnesemia

== ENCOUNTER → 2021-06-12 | Outpatient (REF) | payer OTHER ==
[2021-06-12 17:52] LABS: BASO # 0.1 10^3/uL (0.0-0.2); BASO % 0.4 % (0.0-1.0); HEMATOCRIT 44.6 % (42.0-52.0); HEMOGLOBIN 14.1 g/dl (13.5-17.5); LYMPH # 1.4 10^3/uL (1.5-5.0); LYMPH % 11.4 % (24.0-44.0); MEAN CORPUSCULAR HEMOGLOBIN 27.7 pg (27.0-33.0); MEAN CORPUSCULAR HGB CONC 31.6 g/dl (32.0-36.5); MEAN CORPUSCULAR VOLUME 87.6 fl (80.0-96.0); MONO # 1.1 10^3/uL (0.0-0.8); NEUTROPHILS # 9.7 10^3/uL (1.5-8.5); NEUTROPHILS % 78.6 % (36.0-66.0); PLATELET COUNT, AUTOMATED 206 10^3/uL (150-450); RED BLOOD COUNT 5.09 10^6/uL (4.30-6.10); WHITE BLOOD COUNT 12.4 10^3/uL (4.0-10.0)
[2021-06-12 18:03] LABS: INR 1.86; PROTHROMBIN TIME 21.9 SECONDS (12.7-14.5)
[2021-06-12 18:35] LABS: ALBUMIN 3.6 GM/DL (3.2-5.2); BILIRUBIN,TOTAL 0.5 MG/DL (0.2-1.0); CALCIUM LEVEL 9.4 MG/DL (8.8-10.2); CREATININE FOR GFR 1.56 MG/DL (0.70-1.30); GLOMERULAR FILTRATION RATE 48.6 (>49); MAGNESIUM LEVEL 2.4 MG/DL (1.8-2.4); POTASSIUM SERUM 4.4 MEQ/L (3.5-5.1); TOTAL PROTEIN 6.9 GM/DL (6.4-8.2)
== END ==
LOC: M LABDRWAD 16:48
PROVIDERS: ATTEND Nurse Practitioner Acute Care
DX: D59.4 Other nonautoimmune hemolytic anemias (principal); Z95.811 Presence of heart assist device; T82.897A Other specified complication of cardiac prosthetic devices, implants and grafts, initial encounter; Z79.899 Other long term (current) drug therapy; Z79.01 Long term (current) use of anticoagulants; E83.42 Hypomagnesemia

== ENCOUNTER → 2021-06-19 | Outpatient (REF) | payer OTHER ==
[2021-06-19 17:21] LABS: BASO # 0.1 10^3/uL (0.0-0.2); BASO % 0.6 % (0.0-1.0); EOS % 0.1 % (0.0-3.0); HEMATOCRIT 43.9 % (42.0-52.0); HEMOGLOBIN 13.9 g/dl (13.5-17.5); LYMPH # 1.4 10^3/uL (1.5-5.0); MEAN CORPUSCULAR HEMOGLOBIN 27.9 pg (27.0-33.0); MEAN CORPUSCULAR HGB CONC 31.7 g/dl (32.0-36.5); MONO # 0.8 10^3/uL (0.0-0.8); MONO % 8.5 % (2.0-8.0); NEUTROPHILS # 7.2 10^3/uL (1.5-8.5); PLATELET COUNT, AUTOMATED 198 10^3/uL (150-450); RED BLOOD COUNT 4.99 10^6/uL (4.30-6.10); WHITE BLOOD COUNT 9.6 10^3/uL (4.0-10.0)
[2021-06-19 17:27] LABS: INR 2.2; PROTHROMBIN TIME 24.8 SECONDS (12.7-14.5)
[2021-06-19 17:39] LABS: ALBUMIN 3.5 GM/DL (3.2-5.2); BILIRUBIN,TOTAL 0.5 MG/DL (0.2-1.0); CALCIUM LEVEL 8.6 MG/DL (8.8-10.2); CREATININE FOR GFR 1.54 MG/DL (0.70-1.30); GLOMERULAR FILTRATION RATE 49.3 (>49); MAGNESIUM LEVEL 2.2 MG/DL (1.8-2.4); POTASSIUM SERUM 4.3 MEQ/L (3.5-5.1); TOTAL PROTEIN 6.9 GM/DL (6.4-8.2)
== END ==
LOC: M LAB REF 16:07 → M LABDRWAD 16:07
PROVIDERS: ATTEND Nurse Practitioner Acute Care
DX: Z95.811 Presence of heart assist device (principal); D59.4 Other nonautoimmune hemolytic anemias; T82.897A Other specified complication of cardiac prosthetic devices, implants and grafts, initial encounter; Z79.899 Other long term (current) drug therapy; Z79.01 Long term (current) use of anticoagulants; E83.42 Hypomagnesemia

== ENCOUNTER → 2021-07-01 | Outpatient (REF) | payer OTHER ==
[2021-07-01 13:09] LABS: BASO # 0.1 10^3/uL (0.0-0.2); BASO % 0.4 % (0.0-1.0); EOS % 0.1 % (0.0-3.0); HEMATOCRIT 45.8 % (42.0-52.0); HEMOGLOBIN 14.4 g/dl (13.5-17.5); LYMPH # 1.5 10^3/uL (1.5-5.0); LYMPH % 13.4 % (24.0-44.0); MEAN CORPUSCULAR HEMOGLOBIN 27.6 pg (27.0-33.0); MEAN CORPUSCULAR HGB CONC 31.4 g/dl (32.0-36.5); MEAN CORPUSCULAR VOLUME 87.7 fl (80.0-96.0); MONO % 8.8 % (2.0-8.0); NEUTROPHILS # 8.8 10^3/uL (1.5-8.5); NEUTROPHILS % 76.7 % (36.0-66.0); PLATELET COUNT, AUTOMATED 243 10^3/uL (150-450); RED BLOOD COUNT 5.22 10^6/uL (4.30-6.10); WHITE BLOOD COUNT 11.5 10^3/uL (4.0-10.0)
[2021-07-01 13:21] LABS: INR 1.94; PROTHROMBIN TIME 22.6 SECONDS (12.7-14.5)
[2021-07-01 13:36] LABS: ALBUMIN 3.8 GM/DL (3.2-5.2); BILIRUBIN,TOTAL 0.6 MG/DL (0.2-1.0); CALCIUM LEVEL 9.2 MG/DL (8.8-10.2); CREATININE FOR GFR 1.52 MG/DL (0.70-1.30); MAGNESIUM LEVEL 2.3 MG/DL (1.8-2.4); POTASSIUM SERUM 4.6 MEQ/L (3.5-5.1); TOTAL PROTEIN 7.4 GM/DL (6.4-8.2)
== END ==
LOC: M LABDRWAD 12:35
PROVIDERS: ATTEND Nurse Practitioner Acute Care
DX: E83.42 Hypomagnesemia (principal); Z95.811 Presence of heart assist device; T82.897A Other specified complication of cardiac prosthetic devices, implants and grafts, initial encounter; D59.4 Other nonautoimmune hemolytic anemias; Z79.899 Other long term (current) drug therapy; Z79.01 Long term (current) use of anticoagulants

== ENCOUNTER → 2021-07-16 | Outpatient (REF) | payer OTHER ==
[2021-07-16 13:46] LABS: BASO # 0.1 10^3/uL (0.0-0.2); BASO % 0.5 % (0.0-1.0); HEMATOCRIT 44.1 % (42.0-52.0); LYMPH # 1.8 10^3/uL (1.5-5.0); MEAN CORPUSCULAR HEMOGLOBIN 27.7 pg (27.0-33.0); MEAN CORPUSCULAR HGB CONC 31.7 g/dl (32.0-36.5); MEAN CORPUSCULAR VOLUME 87.3 fl (80.0-96.0); MONO # 1.2 10^3/uL (0.0-0.8); MONO % 10.1 % (2.0-8.0); NEUTROPHILS # 8.3 10^3/uL (1.5-8.5); NEUTROPHILS % 72.9 % (36.0-66.0); PLATELET COUNT, AUTOMATED 224 10^3/uL (150-450); RED BLOOD COUNT 5.05 10^6/uL (4.30-6.10); WHITE BLOOD COUNT 11.4 10^3/uL (4.0-10.0)
[2021-07-16 13:56] LABS: INR 2.41; PROTHROMBIN TIME 26.6 SECONDS (12.7-14.5)
[2021-07-16 14:14] LABS: ALBUMIN 3.5 GM/DL (3.2-5.2); BILIRUBIN,TOTAL 0.4 MG/DL (0.2-1.0); CALCIUM LEVEL 8.6 MG/DL (8.8-10.2); CREATININE FOR GFR 1.42 MG/DL (0.70-1.30); GLOMERULAR FILTRATION RATE 54.1 (>49); MAGNESIUM LEVEL 2.2 MG/DL (1.8-2.4); POTASSIUM SERUM 4.5 MEQ/L (3.5-5.1); TOTAL PROTEIN 6.9 GM/DL (6.4-8.2)
== END ==
LOC: M LABDRWAD 12:52
PROVIDERS: ATTEND Nurse Practitioner Acute Care
DX: Z95.811 Presence of heart assist device (principal); T82.897A Other specified complication of cardiac prosthetic devices, implants and grafts, initial encounter; D59.4 Other nonautoimmune hemolytic anemias; Z79.899 Other long term (current) drug therapy; Z79.01 Long term (current) use of anticoagulants; E83.42 Hypomagnesemia

== ENCOUNTER → 2021-08-07 | Outpatient (REF) | payer OTHER ==
[2021-08-07 13:58] LABS: BASO % 0.5 % (0.0-1.0); HEMATOCRIT 44.7 % (42.0-52.0); HEMOGLOBIN 14.2 g/dl (13.5-17.5); LYMPH # 1.5 10^3/uL (1.5-5.0); LYMPH % 17.2 % (24.0-44.0); MEAN CORPUSCULAR HEMOGLOBIN 27.5 pg (27.0-33.0); MEAN CORPUSCULAR HGB CONC 31.8 g/dl (32.0-36.5); MEAN CORPUSCULAR VOLUME 86.5 fl (80.0-96.0); MONO # 0.9 10^3/uL (0.0-0.8); MONO % 10.1 % (2.0-8.0); NEUTROPHILS # 6.1 10^3/uL (1.5-8.5); NEUTROPHILS % 71.6 % (36.0-66.0); PLATELET COUNT, AUTOMATED 216 10^3/uL (150-450); RED BLOOD COUNT 5.17 10^6/uL (4.30-6.10); WHITE BLOOD COUNT 8.5 10^3/uL (4.0-10.0)
[2021-08-07 14:14] LABS: INR 2.98; PROTHROMBIN TIME 31.3 SECONDS (12.7-14.5)
[2021-08-07 14:25] LABS: ALBUMIN 3.6 GM/DL (3.2-5.2); BILIRUBIN,TOTAL 0.3 MG/DL (0.2-1.0); CALCIUM LEVEL 8.5 MG/DL (8.8-10.2); CREATININE FOR GFR 1.33 MG/DL (0.70-1.30); GLOMERULAR FILTRATION RATE 58.4 (>49); MAGNESIUM LEVEL 2.2 MG/DL (1.8-2.4); POTASSIUM SERUM 4.4 MEQ/L (3.5-5.1); TOTAL PROTEIN 6.9 GM/DL (6.4-8.2)
== END ==
LOC: M LABDRWAD 13:00
PROVIDERS: ATTEND Nurse Practitioner Acute Care
DX: Z95.811 Presence of heart assist device (principal); T82.897A Other specified complication of cardiac prosthetic devices, implants and grafts, initial encounter; D59.4 Other nonautoimmune hemolytic anemias; Z79.899 Other long term (current) drug therapy; E83.42 Hypomagnesemia; Y84.8 Other medical procedures as the cause of abnormal reaction of the patient, or of later complication, without mention of misadventure at the time of the procedure

== ENCOUNTER → 2021-11-06 | Outpatient (CLI) | payer OTHER ==
[~2021-11-06] MED LIST changes: +POTA-151 PO; -POTA20TA6 PO
[2021-11-06 12:33] LABS: BASO # 0.1 10^3/uL (0.0-0.2); BASO % 0.5 % (0.0-1.0); HEMOGLOBIN 14.4 g/dl (13.5-17.5); LYMPH # 1.3 10^3/uL (1.5-5.0); LYMPH % 14.5 % (24.0-44.0); MEAN CORPUSCULAR VOLUME 84.4 fl (80.0-96.0); MONO # 0.7 10^3/uL (0.0-0.8); MONO % 7.5 % (2.0-8.0); NEUTROPHILS # 7.1 10^3/uL (1.5-8.5); NEUTROPHILS % 76.9 % (36.0-66.0); PLATELET COUNT, AUTOMATED 210 10^3/uL (150-450); RED BLOOD COUNT 5.33 10^6/uL (4.30-6.10); WHITE BLOOD COUNT 9.2 10^3/uL (4.0-10.0)
[2021-11-06 12:46] LABS: INR 2.52; PROTHROMBIN TIME 27.5 SECONDS (12.7-14.5)
[2021-11-06 12:55] LABS: ALBUMIN 3.6 GM/DL (3.2-5.2); BILIRUBIN,TOTAL 0.8 MG/DL (0.2-1.0); CALCIUM LEVEL 8.6 MG/DL (8.8-10.2); CREATININE FOR GFR 1.36 MG/DL (0.70-1.30); GLOMERULAR FILTRATION RATE 56.9 (>49); MAGNESIUM LEVEL 2.3 MG/DL (1.8-2.4); POTASSIUM SERUM 4.4 MEQ/L (3.5-5.1); TOTAL PROTEIN 6.8 GM/DL (6.4-8.2)
== END ==
LOC: M ADAMS 11:18
PROVIDERS: ATTEND Nurse Practitioner Acute Care
DX: T82.897A Other specified complication of cardiac prosthetic devices, implants and grafts, initial encounter (principal); Z79.01 Long term (current) use of anticoagulants; Z79.899 Other long term (current) drug therapy; D59.4 Other nonautoimmune hemolytic anemias; I25.5 Ischemic cardiomyopathy; E83.42 Hypomagnesemia

== ENCOUNTER → 2021-12-01 | Outpatient (CLI) | payer OTHER ==
[2021-12-01 17:10] LABS: BASO # 0.1 10^3/uL (0.0-0.2); BASO % 0.3 % (0.0-1.0); HEMATOCRIT 45.7 % (42.0-52.0); HEMOGLOBIN 14.7 g/dl (13.5-17.5); LYMPH # 1.9 10^3/uL (1.5-5.0); MEAN CORPUSCULAR HEMOGLOBIN 27.4 pg (27.0-33.0); MEAN CORPUSCULAR HGB CONC 32.2 g/dl (32.0-36.5); MEAN CORPUSCULAR VOLUME 85.3 fl (80.0-96.0); MONO % 10.7 % (2.0-8.0); NEUTROPHILS # 11.1 10^3/uL (1.5-8.5); NEUTROPHILS % 75.5 % (36.0-66.0); PLATELET COUNT, AUTOMATED 251 10^3/uL (150-450); RED BLOOD COUNT 5.36 10^6/uL (4.30-6.10); WHITE BLOOD COUNT 14.7 10^3/uL (4.0-10.0)
[2021-12-01 17:21] LABS: INR 2.29; PROTHROMBIN TIME 25.6 SECONDS (12.7-14.5)
[2021-12-01 17:24] LABS: ALBUMIN 3.9 GM/DL (3.2-5.2); BILIRUBIN,TOTAL 0.4 MG/DL (0.2-1.0); CALCIUM LEVEL 9.8 MG/DL (8.8-10.2); CREATININE FOR GFR 1.59 MG/DL (0.70-1.30); GLOMERULAR FILTRATION RATE 47.5 (>49); MAGNESIUM LEVEL 2.2 MG/DL (1.8-2.4); POTASSIUM SERUM 4.3 MEQ/L (3.5-5.1); TOTAL PROTEIN 7.1 GM/DL (6.4-8.2)
[2021-12-01 18:39] LABS: MONO # 1.6 10^3/uL (0.0-0.8)
== END ==
LOC: M ADAMS 14:35
PROVIDERS: ATTEND Nurse Practitioner Acute Care
DX: T82.897A Other specified complication of cardiac prosthetic devices, implants and grafts, initial encounter (principal); Z79.01 Long term (current) use of anticoagulants; D59.4 Other nonautoimmune hemolytic anemias; E83.42 Hypomagnesemia; Z79.899 Other long term (current) drug therapy; I25.5 Ischemic cardiomyopathy

== ENCOUNTER → 2021-12-25 | Outpatient (CLI) | payer OTHER ==
[2021-12-25 13:09] LABS: BASO % 0.5 % (0.0-1.0); HEMATOCRIT 42.6 % (42.0-52.0); HEMOGLOBIN 13.8 g/dl (13.5-17.5); LYMPH # 1.2 10^3/uL (1.5-5.0); LYMPH % 14.4 % (24.0-44.0); MEAN CORPUSCULAR HEMOGLOBIN 27.5 pg (27.0-33.0); MEAN CORPUSCULAR HGB CONC 32.4 g/dl (32.0-36.5); MEAN CORPUSCULAR VOLUME 84.9 fl (80.0-96.0); MONO # 0.7 10^3/uL (0.0-0.8); MONO % 8.5 % (2.0-8.0); NEUTROPHILS # 6.3 10^3/uL (1.5-8.5); NEUTROPHILS % 75.8 % (36.0-66.0); PLATELET COUNT, AUTOMATED 187 10^3/uL (150-450); RED BLOOD COUNT 5.02 10^6/uL (4.30-6.10); WHITE BLOOD COUNT 8.3 10^3/uL (4.0-10.0)
[2021-12-25 13:18] LABS: INR 2.02; PROTHROMBIN TIME 23.3 SECONDS (12.7-14.5)
[2021-12-25 13:32] LABS: ALBUMIN 3.6 GM/DL (3.2-5.2); BILIRUBIN,TOTAL 0.5 MG/DL (0.2-1.0); CALCIUM LEVEL 9.2 MG/DL (8.8-10.2); CREATININE FOR GFR 1.39 MG/DL (0.70-1.30); GLOMERULAR FILTRATION RATE 55.5 (>49); MAGNESIUM LEVEL 2.3 MG/DL (1.8-2.4); POTASSIUM SERUM 4.5 MEQ/L (3.5-5.1); TOTAL PROTEIN 6.9 GM/DL (6.4-8.2)
== END ==
LOC: M ADAMS 11:44
PROVIDERS: ATTEND Nurse Practitioner Acute Care
DX: T82.897A Other specified complication of cardiac prosthetic devices, implants and grafts, initial encounter (principal); D59.4 Other nonautoimmune hemolytic anemias; Z79.01 Long term (current) use of anticoagulants; E83.42 Hypomagnesemia; Z79.899 Other long term (current) drug therapy; I25.5 Ischemic cardiomyopathy

== ENCOUNTER → 2022-01-23 | Outpatient (CLI) | payer OTHER ==
[2022-01-23 12:41] LABS: BASO # 0.1 10^3/uL (0.0-0.2); BASO % 0.5 % (0.0-1.0); HEMATOCRIT 44.8 % (42.0-52.0); HEMOGLOBIN 14.5 g/dl (13.5-17.5); LYMPH # 1.3 10^3/uL (1.5-5.0); LYMPH % 13.2 % (24.0-44.0); MEAN CORPUSCULAR HEMOGLOBIN 27.3 pg (27.0-33.0); MEAN CORPUSCULAR HGB CONC 32.4 g/dl (32.0-36.5); MEAN CORPUSCULAR VOLUME 84.4 fl (80.0-96.0); MONO % 9.8 % (2.0-8.0); NEUTROPHILS # 7.5 10^3/uL (1.5-8.5); NEUTROPHILS % 75.7 % (36.0-66.0); PLATELET COUNT, AUTOMATED 198 10^3/uL (150-450); RED BLOOD COUNT 5.31 10^6/uL (4.30-6.10); WHITE BLOOD COUNT 9.9 10^3/uL (4.0-10.0)
[2022-01-23 12:50] LABS: INR 2.26; PROTHROMBIN TIME 25.3 SECONDS (12.7-14.5)
[2022-01-23 13:09] LABS: ALBUMIN 3.6 GM/DL (3.2-5.2); BILIRUBIN,TOTAL 0.6 MG/DL (0.2-1.0); CALCIUM LEVEL 8.4 MG/DL (8.8-10.2); CREATININE FOR GFR 1.57 MG/DL (0.70-1.30); GLOMERULAR FILTRATION RATE 48.2 (>49); POTASSIUM SERUM 3.9 MEQ/L (3.5-5.1); TOTAL PROTEIN 7.1 GM/DL (6.4-8.2)
== END ==
LOC: M ADAMS 10:35
PROVIDERS: ATTEND Nurse Practitioner Acute Care
DX: T82.897A Other specified complication of cardiac prosthetic devices, implants and grafts, initial encounter (principal); Z79.01 Long term (current) use of anticoagulants; D59.4 Other nonautoimmune hemolytic anemias; E83.42 Hypomagnesemia; Z79.899 Other long term (current) drug therapy; I25.5 Ischemic cardiomyopathy

== ENCOUNTER → 2022-02-26 | Outpatient (CLI) | payer OTHER ==
[2022-02-26 12:26] LABS: BASO # 0.1 10^3/uL (0.0-0.2); BASO % 0.5 % (0.0-1.0); HEMATOCRIT 43.4 % (42.0-52.0); HEMOGLOBIN 13.6 g/dl (13.5-17.5); LYMPH # 1.7 10^3/uL (1.5-5.0); LYMPH % 16.7 % (24.0-44.0); MEAN CORPUSCULAR HEMOGLOBIN 27.2 pg (27.0-33.0); MEAN CORPUSCULAR HGB CONC 31.3 g/dl (32.0-36.5); MEAN CORPUSCULAR VOLUME 86.8 fl (80.0-96.0); MONO # 0.8 10^3/uL (0.0-0.8); MONO % 8.3 % (2.0-8.0); NEUTROPHILS # 7.4 10^3/uL (1.5-8.5); NEUTROPHILS % 73.8 % (36.0-66.0); PLATELET COUNT, AUTOMATED 220 10^3/uL (150-450)
[2022-02-26 12:36] LABS: INR 2.16; PROTHROMBIN TIME 24.5 SECONDS (12.7-14.5)
[2022-02-26 12:39] LABS: ALBUMIN 3.6 GM/DL (3.2-5.2); BILIRUBIN,TOTAL 0.5 MG/DL (0.2-1.0); CALCIUM LEVEL 8.7 MG/DL (8.8-10.2); CREATININE FOR GFR 1.43 MG/DL (0.70-1.30); GLOMERULAR FILTRATION RATE 53.5 (>49); MAGNESIUM LEVEL 2.1 MG/DL (1.8-2.4); POTASSIUM SERUM 4.2 MEQ/L (3.5-5.1); TOTAL PROTEIN 6.7 GM/DL (6.4-8.2)
== END ==
LOC: M ADAMS 10:21
PROVIDERS: ATTEND Nurse Practitioner Acute Care
DX: T82.897A Other specified complication of cardiac prosthetic devices, implants and grafts, initial encounter (principal); D59.4 Other nonautoimmune hemolytic anemias; Z79.01 Long term (current) use of anticoagulants; E83.42 Hypomagnesemia; Z79.899 Other long term (current) drug therapy; I25.5 Ischemic cardiomyopathy

== ENCOUNTER → 2022-03-11 | Outpatient (CLI) | payer OTHER ==
[2022-03-11 12:45] LABS: BASO % 0.4 % (0.0-1.0); HEMATOCRIT 44.6 % (42.0-52.0); HEMOGLOBIN 14.1 g/dl (13.5-17.5); LYMPH # 1.2 10^3/uL (1.5-5.0); LYMPH % 11.6 % (24.0-44.0); MEAN CORPUSCULAR HEMOGLOBIN 27.3 pg (27.0-33.0); MEAN CORPUSCULAR HGB CONC 31.6 g/dl (32.0-36.5); MEAN CORPUSCULAR VOLUME 86.3 fl (80.0-96.0); MONO # 0.8 10^3/uL (0.0-0.8); MONO % 8.3 % (2.0-8.0); PLATELET COUNT, AUTOMATED 195 10^3/uL (150-450); RED BLOOD COUNT 5.17 10^6/uL (4.30-6.10); WHITE BLOOD COUNT 10.1 10^3/uL (4.0-10.0)
[2022-03-11 13:07] LABS: INR 2.25; PROTHROMBIN TIME 25.3 SECONDS (12.7-14.5)
[2022-03-11 13:53] LABS: ALBUMIN 3.3 GM/DL (3.2-5.2); BILIRUBIN,TOTAL 0.6 MG/DL (0.2-1.0); CALCIUM LEVEL 8.7 MG/DL (8.8-10.2); CREATININE FOR GFR 1.47 MG/DL (0.70-1.30); GLOMERULAR FILTRATION RATE 51.8 (>49); MAGNESIUM LEVEL 2.2 MG/DL (1.8-2.4); POTASSIUM SERUM 4.4 MEQ/L (3.5-5.1); TOTAL PROTEIN 6.7 GM/DL (6.4-8.2)
== END ==
LOC: M ADAMS 10:55
PROVIDERS: ATTEND Nurse Practitioner Acute Care
DX: T82.897A Other specified complication of cardiac prosthetic devices, implants and grafts, initial encounter (principal); D59.4 Other nonautoimmune hemolytic anemias; Z79.01 Long term (current) use of anticoagulants; E83.42 Hypomagnesemia; Z79.899 Other long term (current) drug therapy; I25.5 Ischemic cardiomyopathy

== ENCOUNTER → 2022-04-23 | Outpatient (REF) | payer OTHER ==
[2022-04-23 13:53] LABS: CHOLESTEROL RISK RATIO 2.333 (<5)
== END ==
LOC: M LABDRWAD 12:54
PROVIDERS: ATTEND Nurse Practitioner Adult Health
DX: I50.42 Chronic combined systolic (congestive) and diastolic (congestive) heart failure (principal); E78.2 Mixed hyperlipidemia; Z79.899 Other long term (current) drug therapy

== ENCOUNTER → 2022-04-23 | Outpatient (REF) | payer OTHER ==
[2022-04-23 13:23] LABS: BASO # 0.1 10^3/uL (0.0-0.2); BASO % 0.8 % (0.0-1.0); HEMATOCRIT 44.7 % (42.0-52.0); HEMOGLOBIN 14.4 g/dl (13.5-17.5); LYMPH # 1.3 10^3/uL (1.5-5.0); LYMPH % 20.3 % (24.0-44.0); MEAN CORPUSCULAR HEMOGLOBIN 27.4 pg (27.0-33.0); MEAN CORPUSCULAR HGB CONC 32.2 g/dl (32.0-36.5); MONO # 0.7 10^3/uL (0.0-0.8); MONO % 10.7 % (2.0-8.0); NEUTROPHILS # 4.2 10^3/uL (1.5-8.5); NEUTROPHILS % 67.4 % (36.0-66.0); PLATELET COUNT, AUTOMATED 204 10^3/uL (150-450); RED BLOOD COUNT 5.26 10^6/uL (4.30-6.10); WHITE BLOOD COUNT 6.3 10^3/uL (4.0-10.0)
[2022-04-23 13:35] LABS: INR 3.31; PROTHROMBIN TIME 33.9 SECONDS (12.7-14.5)
[2022-04-23 13:53] LABS: ALBUMIN 3.7 GM/DL (3.2-5.2); BILIRUBIN,TOTAL 0.6 MG/DL (0.2-1.0); CALCIUM LEVEL 9.1 MG/DL (8.8-10.2); CREATININE FOR GFR 1.5 MG/DL (0.70-1.30); GLOMERULAR FILTRATION RATE 50.7 (>49); MAGNESIUM LEVEL 2.2 MG/DL (1.8-2.4); POTASSIUM SERUM 3.9 MEQ/L (3.5-5.1); TOTAL PROTEIN 7.1 GM/DL (6.4-8.2)
== END ==
LOC: M LABDRWAD 12:52
PROVIDERS: ATTEND Nurse Practitioner Acute Care
DX: T82.897A Other specified complication of cardiac prosthetic devices, implants and grafts, initial encounter (principal); D59.4 Other nonautoimmune hemolytic anemias; Z79.01 Long term (current) use of anticoagulants; E83.42 Hypomagnesemia; Z79.899 Other long term (current) drug therapy; I25.5 Ischemic cardiomyopathy

== ENCOUNTER → 2022-05-21 | Outpatient (CLI) | payer OTHER ==
[2022-05-21 13:58] LABS: BASO # 0.1 10^3/uL (0.0-0.2); BASO % 0.6 % (0.0-1.0); HEMATOCRIT 44.7 % (42.0-52.0); HEMOGLOBIN 14.3 g/dl (13.5-17.5); LYMPH # 1.4 10^3/uL (1.5-5.0); LYMPH % 14.2 % (24.0-44.0); MEAN CORPUSCULAR HEMOGLOBIN 27.8 pg (27.0-33.0); MEAN CORPUSCULAR VOLUME 86.8 fl (80.0-96.0); MONO # 0.8 10^3/uL (0.0-0.8); NEUTROPHILS # 7.4 10^3/uL (1.5-8.5); NEUTROPHILS % 76.8 % (36.0-66.0); PLATELET COUNT, AUTOMATED 208 10^3/uL (150-450); RED BLOOD COUNT 5.15 10^6/uL (4.30-6.10); WHITE BLOOD COUNT 9.6 10^3/uL (4.0-10.0)
[2022-05-21 14:10] LABS: INR 1.84; PROTHROMBIN TIME 21.6 SECONDS (12.5-14.5)
[2022-05-21 14:39] LABS: ALBUMIN 3.5 GM/DL (3.2-5.2); BILIRUBIN,TOTAL 0.5 MG/DL (0.2-1.0); CREATININE FOR GFR 1.4 MG/DL (0.70-1.30); GLOMERULAR FILTRATION RATE 54.8 (>49); MAGNESIUM LEVEL 2.2 MG/DL (1.8-2.4); POTASSIUM SERUM 4.2 MEQ/L (3.5-5.1); TOTAL PROTEIN 6.9 GM/DL (6.4-8.2)
== END ==
LOC: M LABDRWAD 11:24
PROVIDERS: ATTEND Nurse Practitioner Acute Care
DX: T82.897A Other specified complication of cardiac prosthetic devices, implants and grafts, initial encounter (principal); D59.4 Other nonautoimmune hemolytic anemias; Z79.01 Long term (current) use of anticoagulants; Z79.899 Other long term (current) drug therapy; E83.42 Hypomagnesemia; I25.5 Ischemic cardiomyopathy

== ENCOUNTER → 2022-06-04 | Outpatient (CLI) | payer OTHER ==
[2022-06-04 14:13] LABS: BASO % 0.4 % (0.0-1.0); HEMATOCRIT 46.3 % (42.0-52.0); HEMOGLOBIN 14.6 g/dl (13.5-17.5); LYMPH # 1.4 10^3/uL (1.5-5.0); LYMPH % 15.5 % (24.0-44.0); MEAN CORPUSCULAR HGB CONC 31.5 g/dl (32.0-36.5); MEAN CORPUSCULAR VOLUME 88.7 fl (80.0-96.0); MONO # 0.9 10^3/uL (0.0-0.8); MONO % 9.4 % (2.0-8.0); NEUTROPHILS # 6.7 10^3/uL (1.5-8.5); NEUTROPHILS % 74.1 % (36.0-66.0); PLATELET COUNT, AUTOMATED 210 10^3/uL (150-450); RED BLOOD COUNT 5.22 10^6/uL (4.30-6.10)
[2022-06-04 14:23] LABS: INR 2.26; PROTHROMBIN TIME 25.3 SECONDS (12.5-14.5)
[2022-06-04 14:37] LABS: ALBUMIN 3.8 GM/DL (3.2-5.2); BILIRUBIN,TOTAL 0.5 MG/DL (0.2-1.0); CALCIUM LEVEL 9.3 MG/DL (8.8-10.2); CREATININE FOR GFR 1.41 MG/DL (0.70-1.30); GLOMERULAR FILTRATION RATE 54.4 (>49); MAGNESIUM LEVEL 2.2 MG/DL (1.8-2.4); POTASSIUM SERUM 4.6 MEQ/L (3.5-5.1); TOTAL PROTEIN 7.3 GM/DL (6.4-8.2)
== END ==
LOC: M LABDRWAD 10:28
PROVIDERS: ATTEND Nurse Practitioner Acute Care
DX: T82.897A Other specified complication of cardiac prosthetic devices, implants and grafts, initial encounter (principal); D59.4 Other nonautoimmune hemolytic anemias; Z79.01 Long term (current) use of anticoagulants; E83.42 Hypomagnesemia; Z79.899 Other long term (current) drug therapy; I25.5 Ischemic cardiomyopathy

== ENCOUNTER → 2022-06-18 | Outpatient (CLI) | payer OTHER ==
[2022-06-18 14:24] LABS: BASO # 0.1 10^3/uL (0.0-0.2); BASO % 0.5 % (0.0-1.0); HEMATOCRIT 44.1 % (42.0-52.0); LYMPH # 1.5 10^3/uL (1.5-5.0); LYMPH % 15.4 % (24.0-44.0); MEAN CORPUSCULAR HEMOGLOBIN 27.8 pg (27.0-33.0); MEAN CORPUSCULAR HGB CONC 31.7 g/dl (32.0-36.5); MEAN CORPUSCULAR VOLUME 87.5 fl (80.0-96.0); MONO # 0.9 10^3/uL (0.0-0.8); MONO % 9.9 % (2.0-8.0); NEUTROPHILS % 73.7 % (36.0-66.0); PLATELET COUNT, AUTOMATED 192 10^3/uL (150-450); RED BLOOD COUNT 5.04 10^6/uL (4.30-6.10); WHITE BLOOD COUNT 9.4 10^3/uL (4.0-10.0)
[2022-06-18 14:37] LABS: INR 2.3; PROTHROMBIN TIME 25.7 SECONDS (12.5-14.5)
[2022-06-18 15:12] LABS: ALBUMIN 3.5 GM/DL (3.2-5.2); BILIRUBIN,TOTAL 0.4 MG/DL (0.2-1.0); CALCIUM LEVEL 8.9 MG/DL (8.8-10.2); CREATININE FOR GFR 1.5 MG/DL (0.70-1.30); GLOMERULAR FILTRATION RATE 50.7 (>49); MAGNESIUM LEVEL 2.3 MG/DL (1.8-2.4); POTASSIUM SERUM 4.5 MEQ/L (3.5-5.1); TOTAL PROTEIN 7.1 GM/DL (6.4-8.2)
== END ==
LOC: M LABDRWAD 11:05
PROVIDERS: ATTEND Nurse Practitioner Acute Care
DX: T82.897A Other specified complication of cardiac prosthetic devices, implants and grafts, initial encounter (principal); D59.4 Other nonautoimmune hemolytic anemias; Z79.01 Long term (current) use of anticoagulants; E83.42 Hypomagnesemia; Z79.899 Other long term (current) drug therapy; I25.5 Ischemic cardiomyopathy

== ENCOUNTER → 2022-07-16 | Outpatient (CLI) | payer OTHER ==
[2022-07-16 13:51] LABS: BASO # 0.1 10^3/uL (0.0-0.2); BASO % 0.7 % (0.0-1.0); HEMATOCRIT 47.5 % (42.0-52.0); HEMOGLOBIN 14.7 g/dl (13.5-17.5); LYMPH # 1.6 10^3/uL (1.5-5.0); LYMPH % 18.5 % (24.0-44.0); MEAN CORPUSCULAR HEMOGLOBIN 27.8 pg (27.0-33.0); MEAN CORPUSCULAR HGB CONC 30.9 g/dl (32.0-36.5); MEAN CORPUSCULAR VOLUME 89.8 fl (80.0-96.0); MONO % 10.8 % (2.0-8.0); NEUTROPHILS # 6.1 10^3/uL (1.5-8.5); NEUTROPHILS % 69.3 % (36.0-66.0); PLATELET COUNT, AUTOMATED 216 10^3/uL (150-450); RED BLOOD COUNT 5.29 10^6/uL (4.30-6.10); WHITE BLOOD COUNT 8.8 10^3/uL (4.0-10.0)
[2022-07-16 13:58] LABS: INR 2.76; PROTHROMBIN TIME 29.6 SECONDS (12.5-14.5)
[2022-07-16 14:03] LABS: ALBUMIN 3.7 G/DL (3.2-5.2); BILIRUBIN,TOTAL 0.4 MG/DL (0.3-1.2); CALCIUM LEVEL 8.9 MG/DL (8.3-10.6); CREATININE FOR GFR 1.35 MG/DL (0.70-1.30); GLOMERULAR FILTRATION RATE 57.2 (>49); POTASSIUM SERUM 4.5 MMOL/L (3.5-5.1); TOTAL PROTEIN 6.9 G/DL (5.7-8.2)
== END ==
LOC: M LABDRWAD 11:03
PROVIDERS: ATTEND Nurse Practitioner Acute Care
DX: T82.897A Other specified complication of cardiac prosthetic devices, implants and grafts, initial encounter (principal); D59.4 Other nonautoimmune hemolytic anemias; Z79.01 Long term (current) use of anticoagulants; E83.42 Hypomagnesemia; Z79.899 Other long term (current) drug therapy; I25.5 Ischemic cardiomyopathy

== ENCOUNTER → 2022-07-30 | Outpatient (CLI) | payer OTHER ==
[2022-07-30 14:47] LABS: BASO # 0.1 10^3/uL (0.0-0.2); BASO % 0.5 % (0.0-1.0); HEMATOCRIT 46.5 % (42.0-52.0); HEMOGLOBIN 14.9 g/dl (13.5-17.5); LYMPH # 1.5 10^3/uL (1.5-5.0); LYMPH % 15.8 % (24.0-44.0); MEAN CORPUSCULAR HEMOGLOBIN 28.5 pg (27.0-33.0); MEAN CORPUSCULAR VOLUME 88.9 fl (80.0-96.0); MONO # 0.8 10^3/uL (0.0-0.8); MONO % 8.4 % (2.0-8.0); NEUTROPHILS # 7.3 10^3/uL (1.5-8.5); NEUTROPHILS % 74.7 % (36.0-66.0); PLATELET COUNT, AUTOMATED 202 10^3/uL (150-450); RED BLOOD COUNT 5.23 10^6/uL (4.30-6.10); WHITE BLOOD COUNT 9.8 10^3/uL (4.0-10.0)
[2022-07-30 14:58] LABS: INR 2.15; PROTHROMBIN TIME 24.4 SECONDS (12.5-14.5)
[2022-07-30 15:20] LABS: MAGNESIUM LEVEL 1.9 MG/DL (1.8-2.4)
[2022-07-30 15:21] LABS: ALBUMIN 3.8 G/DL (3.2-5.2); BILIRUBIN,TOTAL 0.5 MG/DL (0.3-1.2); CALCIUM LEVEL 8.9 MG/DL (8.3-10.6); CREATININE FOR GFR 1.35 MG/DL (0.70-1.30); GLOMERULAR FILTRATION RATE 57.2 (>49); POTASSIUM SERUM 4.6 MMOL/L (3.5-5.1); TOTAL PROTEIN 6.8 G/DL (5.7-8.2)
== END ==
LOC: M LABDRWAD 11:23
PROVIDERS: ATTEND Nurse Practitioner Acute Care
DX: T82.897A Other specified complication of cardiac prosthetic devices, implants and grafts, initial encounter (principal); D59.4 Other nonautoimmune hemolytic anemias; Z79.01 Long term (current) use of anticoagulants; E83.42 Hypomagnesemia; Z79.899 Other long term (current) drug therapy; I25.5 Ischemic cardiomyopathy

== ENCOUNTER → 2022-09-10 | Outpatient (CLI) | payer OTHER ==
[2022-09-10 16:34] LABS: ALBUMIN 3.8 G/DL (3.2-5.2); BASO # 0.1 10^3/uL (0.0-0.2); BASO % 0.5 % (0.0-1.0); BILIRUBIN,TOTAL 0.4 MG/DL (0.3-1.2); CALCIUM LEVEL 8.9 MG/DL (8.3-10.6); CREATININE FOR GFR 1.44 MG/DL (0.70-1.30); GLOMERULAR FILTRATION RATE 53.1 (>49); HEMATOCRIT 47.2 % (42.0-52.0); HEMOGLOBIN 15.3 g/dl (13.5-17.5); LYMPH # 1.4 10^3/uL (1.5-5.0); LYMPH % 13.3 % (24.0-44.0); MAGNESIUM LEVEL 1.8 MG/DL (1.8-2.4); MEAN CORPUSCULAR HEMOGLOBIN 28.2 pg (27.0-33.0); MEAN CORPUSCULAR HGB CONC 32.4 g/dl (32.0-36.5); MEAN CORPUSCULAR VOLUME 86.9 fl (80.0-96.0); MONO # 0.6 10^3/uL (0.0-0.8); MONO % 5.7 % (2.0-8.0); NEUTROPHILS # 8.4 10^3/uL (1.5-8.5); NEUTROPHILS % 79.8 % (36.0-66.0); PLATELET COUNT, AUTOMATED 198 10^3/uL (150-450); POTASSIUM SERUM 4.5 MMOL/L (3.5-5.1); RED BLOOD COUNT 5.43 10^6/uL (4.30-6.10); TOTAL PROTEIN 7.1 G/DL (5.7-8.2); WHITE BLOOD COUNT 10.6 10^3/uL (4.0-10.0)
[2022-09-10 16:40] LABS: INR 2.85; PROTHROMBIN TIME 30.4 SECONDS (12.5-14.5)
== END ==
LOC: M LABDRWAD 13:09
PROVIDERS: ATTEND Nurse Practitioner Acute Care
DX: T82.897A Other specified complication of cardiac prosthetic devices, implants and grafts, initial encounter (principal); D59.4 Other nonautoimmune hemolytic anemias; Z79.01 Long term (current) use of anticoagulants; E83.42 Hypomagnesemia; Z79.899 Other long term (current) drug therapy; I25.5 Ischemic cardiomyopathy

== ENCOUNTER → 2022-09-23 | Outpatient (CLI) | payer OTHER ==
[2022-09-23 14:56] LABS: BASO % 0.3 % (0.0-1.0); HEMOGLOBIN 14.3 g/dl (13.5-17.5); LYMPH # 1.4 10^3/uL (1.5-5.0); LYMPH % 16.1 % (24.0-44.0); MEAN CORPUSCULAR HEMOGLOBIN 28.4 pg (27.0-33.0); MEAN CORPUSCULAR HGB CONC 32.5 g/dl (32.0-36.5); MEAN CORPUSCULAR VOLUME 87.5 fl (80.0-96.0); MONO # 0.6 10^3/uL (0.0-0.8); NEUTROPHILS # 6.5 10^3/uL (1.5-8.5); PLATELET COUNT, AUTOMATED 196 10^3/uL (150-450); RED BLOOD COUNT 5.03 10^6/uL (4.30-6.10); WHITE BLOOD COUNT 8.6 10^3/uL (4.0-10.0)
[2022-09-23 15:08] LABS: INR 2.37; PROTHROMBIN TIME 26.3 SECONDS (12.5-14.5)
[2022-09-23 15:22] LABS: ALBUMIN 3.5 G/DL (3.2-5.2); BILIRUBIN,TOTAL 0.6 MG/DL (0.3-1.2); CALCIUM LEVEL 8.8 MG/DL (8.3-10.6); CREATININE FOR GFR 1.32 MG/DL (0.70-1.30); GLOMERULAR FILTRATION RATE 58.7 (>49); MAGNESIUM LEVEL 1.8 MG/DL (1.8-2.4); POTASSIUM SERUM 4.2 MMOL/L (3.5-5.1)
[2022-09-23 22:06] LABS: TOTAL PROTEIN 6.8 G/DL (5.7-8.2)
== END ==
LOC: M LABDRWAD 13:42
PROVIDERS: ATTEND Nurse Practitioner Acute Care
DX: D59.4 Other nonautoimmune hemolytic anemias (principal); Z79.01 Long term (current) use of anticoagulants; E83.42 Hypomagnesemia; Z79.899 Other long term (current) drug therapy; I25.5 Ischemic cardiomyopathy; T82.897A Other specified complication of cardiac prosthetic devices, implants and grafts, initial encounter

== ENCOUNTER → 2022-10-28 | Outpatient (CLI) | payer OTHER ==
[2022-10-28 13:32] LABS: BASO % 0.5 % (0.0-1.0); HEMATOCRIT 45.8 % (42.0-52.0); HEMOGLOBIN 14.6 g/dl (13.5-17.5); LYMPH # 1.5 10^3/uL (1.5-5.0); LYMPH % 19.2 % (24.0-44.0); MEAN CORPUSCULAR HGB CONC 31.9 g/dl (32.0-36.5); MEAN CORPUSCULAR VOLUME 87.7 fl (80.0-96.0); MONO # 0.9 10^3/uL (0.0-0.8); MONO % 10.8 % (2.0-8.0); NEUTROPHILS # 5.4 10^3/uL (1.5-8.5); PLATELET COUNT, AUTOMATED 201 10^3/uL (150-450); RED BLOOD COUNT 5.22 10^6/uL (4.30-6.10); WHITE BLOOD COUNT 7.9 10^3/uL (4.0-10.0)
[2022-10-28 13:43] LABS: INR 2.79; PROTHROMBIN TIME 29.9 SECONDS (12.5-14.5)
[2022-10-28 14:06] LABS: C REACTIVE PROTEIN QUANTITATIV 0.7 MG/DL (<1.0)
[2022-10-28 14:15] LABS: ALBUMIN 3.7 G/DL (3.2-5.2); BILIRUBIN,TOTAL 0.6 MG/DL (0.3-1.2); CALCIUM LEVEL 8.9 MG/DL (8.3-10.6); CREATININE FOR GFR 1.42 MG/DL (0.70-1.30); MAGNESIUM LEVEL 1.9 MG/DL (1.8-2.4); POTASSIUM SERUM 4.7 MMOL/L (3.5-5.1); TOTAL PROTEIN 6.8 G/DL (5.7-8.2)
== END ==
LOC: M LABDRWAD 11:07
PROVIDERS: ATTEND Nurse Practitioner Acute Care
DX: Z79.01 Long term (current) use of anticoagulants (principal); E83.42 Hypomagnesemia; Z79.899 Other long term (current) drug therapy; Z95.811 Presence of heart assist device; B99.9 Unspecified infectious disease; I50.9 Heart failure, unspecified

== ENCOUNTER → 2022-11-17 | Outpatient (REF) | payer OTHER ==
[2022-11-17 12:01] LABS: BASO # 0.1 10^3/uL (0.0-0.2); BASO % 0.6 % (0.0-1.0); HEMATOCRIT 42.3 % (42.0-52.0); HEMOGLOBIN 13.5 g/dl (13.5-17.5); LYMPH # 1.3 10^3/uL (1.5-5.0); LYMPH % 15.8 % (24.0-44.0); MEAN CORPUSCULAR HEMOGLOBIN 28.3 pg (27.0-33.0); MEAN CORPUSCULAR HGB CONC 31.9 g/dl (32.0-36.5); MEAN CORPUSCULAR VOLUME 88.7 fl (80.0-96.0); MONO # 0.7 10^3/uL (0.0-0.8); MONO % 8.5 % (2.0-8.0); NEUTROPHILS # 6.1 10^3/uL (1.5-8.5); NEUTROPHILS % 73.5 % (36.0-66.0); PLATELET COUNT, AUTOMATED 298 10^3/uL (150-450); RED BLOOD COUNT 4.77 10^6/uL (4.30-6.10); WHITE BLOOD COUNT 8.4 10^3/uL (4.0-10.0)
[2022-11-17 12:15] LABS: INR 1.94; PROTHROMBIN TIME 22.5 SECONDS (12.5-14.5)
[2022-11-17 12:23] LABS: ALBUMIN 3.4 G/DL (3.2-5.2); BILIRUBIN,TOTAL 0.4 MG/DL (0.3-1.2); CALCIUM LEVEL 8.7 MG/DL (8.3-10.6); CREATININE FOR GFR 1.31 MG/DL (0.70-1.30); GLOMERULAR FILTRATION RATE 59.2 (>49); MAGNESIUM LEVEL 1.7 MG/DL (1.8-2.4); POTASSIUM SERUM 4.4 MMOL/L (3.5-5.1); TOTAL PROTEIN 6.5 G/DL (5.7-8.2)
[2022-11-17 13:33] LABS: C REACTIVE PROTEIN QUANTITATIV 1.5 MG/DL (<1.0)
== END ==
LOC: M LAB REF 11:24
PROVIDERS: ATTEND Nurse Practitioner Acute Care
DX: T82.7XXA Infection and inflammatory reaction due to other cardiac and vascular devices, implants and grafts, initial encounter (principal); F32.A Depression, unspecified; N17.8 Other acute kidney failure; N18.9 Chronic kidney disease, unspecified

== ENCOUNTER → 2022-11-24 | Outpatient (REF) | payer OTHER ==
[2022-11-24 12:03] LABS: BASO % 0.6 % (0.0-1.0); HEMATOCRIT 41.1 % (42.0-52.0); HEMOGLOBIN 13.2 g/dl (13.5-17.5); MEAN CORPUSCULAR HEMOGLOBIN 28.5 pg (27.0-33.0); MEAN CORPUSCULAR HGB CONC 32.1 g/dl (32.0-36.5); MEAN CORPUSCULAR VOLUME 88.8 fl (80.0-96.0); MONO # 0.7 10^3/uL (0.0-0.8); MONO % 10.3 % (2.0-8.0); NEUTROPHILS # 5.1 10^3/uL (1.5-8.5); NEUTROPHILS % 74.4 % (36.0-66.0); PLATELET COUNT, AUTOMATED 221 10^3/uL (150-450); RED BLOOD COUNT 4.63 10^6/uL (4.30-6.10); WHITE BLOOD COUNT 6.9 10^3/uL (4.0-10.0)
[2022-11-24 12:16] LABS: INR 2.07; PROTHROMBIN TIME 23.7 SECONDS (12.5-14.5)
[2022-11-24 12:29] LABS: LDH LACTATE DEHYDROGENASE 234 U/L (120-246)
[2022-11-24 12:30] LABS: ALBUMIN 3.6 G/DL (3.2-5.2); ALKALINE PHOSPHATASE 107 U/L (46-116); ALT/SGPT < 9 U/L (7.0-40); AST/SGOT 27 U/L (<34); BILIRUBIN,TOTAL 0.4 MG/DL (0.3-1.2); BLOOD UREA NITROGEN 22 MG/DL (9-23); CALCIUM LEVEL 8.3 MG/DL (8.3-10.6); CARBON DIOXIDE LEVEL 27 MMOL/L (20-31); CHLORIDE LEVEL 101 MMOL/L (98-107); CREATININE FOR GFR 1.27 MG/DL (0.70-1.30); GLOMERULAR FILTRATION RATE > 60.0 (>49); GLUCOSE, FASTING 99 MG/DL (74-106); MAGNESIUM LEVEL 1.9 MG/DL (1.8-2.4); POTASSIUM SERUM 4.4 MMOL/L (3.5-5.1); SODIUM LEVEL 135 MMOL/L (136-145); TOTAL PROTEIN 6.8 G/DL (5.7-8.2)
== END ==
LOC: M LAB REF 11:05
PROVIDERS: ATTEND Nurse Practitioner Acute Care
DX: T82.7XXA Infection and inflammatory reaction due to other cardiac and vascular devices, implants and grafts, initial encounter (principal); N17.9 Acute kidney failure, unspecified; N18.9 Chronic kidney disease, unspecified; F32.A Depression, unspecified

== ENCOUNTER → 2022-12-01 | Outpatient (REF) | payer OTHER ==
[2022-12-01 13:38] LABS: BASO # 0.1 10^3/uL (0.0-0.2); BASO % 0.7 % (0.0-1.0); HEMATOCRIT 42.7 % (42.0-52.0); HEMOGLOBIN 13.7 g/dl (13.5-17.5); LYMPH % 15.1 % (24.0-44.0); MEAN CORPUSCULAR HEMOGLOBIN 28.2 pg (27.0-33.0); MEAN CORPUSCULAR HGB CONC 32.1 g/dl (32.0-36.5); MONO # 0.7 10^3/uL (0.0-0.8); MONO % 10.1 % (2.0-8.0); NEUTROPHILS # 5.1 10^3/uL (1.5-8.5); NEUTROPHILS % 73.8 % (36.0-66.0); PLATELET COUNT, AUTOMATED 196 10^3/uL (150-450); RED BLOOD COUNT 4.85 10^6/uL (4.30-6.10); WHITE BLOOD COUNT 6.9 10^3/uL (4.0-10.0)
[2022-12-01 13:53] LABS: INR 2.27; PROTHROMBIN TIME 25.4 SECONDS (12.5-14.5)
[2022-12-01 13:57] LABS: LDH LACTATE DEHYDROGENASE 256 U/L (120-246)
[2022-12-01 13:58] LABS: ALBUMIN 3.5 G/DL (3.2-5.2); ALKALINE PHOSPHATASE 106 U/L (46-116); ALT/SGPT 11 U/L (7.0-40); AST/SGOT 29 U/L (<34); BILIRUBIN,TOTAL 0.4 MG/DL (0.3-1.2); BLOOD UREA NITROGEN 23 MG/DL (9-23); CALCIUM LEVEL 8.6 MG/DL (8.3-10.6); CARBON DIOXIDE LEVEL 27 MMOL/L (20-31); CHLORIDE LEVEL 100 MMOL/L (98-107); CREATININE FOR GFR 1.33 MG/DL (0.70-1.30); GLOMERULAR FILTRATION RATE 58.2 (>49); GLUCOSE, FASTING 93 MG/DL (74-106); POTASSIUM SERUM 4.6 MMOL/L (3.5-5.1); SODIUM LEVEL 134 MMOL/L (136-145); TOTAL PROTEIN 6.7 G/DL (5.7-8.2)
[2022-12-01 13:59] LABS: C REACTIVE PROTEIN QUANTITATIV < 0.40 MG/DL (<1.0)
== END ==
LOC: M LAB REF 12:32
PROVIDERS: ATTEND Nurse Practitioner Acute Care
DX: F32.A Depression, unspecified (principal); T82.7XXA Infection and inflammatory reaction due to other cardiac and vascular devices, implants and grafts, initial encounter; N17.9 Acute kidney failure, unspecified; N18.9 Chronic kidney disease, unspecified

== ENCOUNTER → 2022-12-08 | Outpatient (REF) | payer OTHER ==
[2022-12-08 12:10] LABS: BASO # 0.1 10^3/uL (0.0-0.2); BASO % 0.8 % (0.0-1.0); HEMATOCRIT 42.3 % (42.0-52.0); HEMOGLOBIN 13.6 g/dl (13.5-17.5); LYMPH # 1.1 10^3/uL (1.5-5.0); LYMPH % 16.3 % (24.0-44.0); MEAN CORPUSCULAR HEMOGLOBIN 28.4 pg (27.0-33.0); MEAN CORPUSCULAR HGB CONC 32.2 g/dl (32.0-36.5); MEAN CORPUSCULAR VOLUME 88.3 fl (80.0-96.0); MONO # 0.6 10^3/uL (0.0-0.8); MONO % 9.6 % (2.0-8.0); NEUTROPHILS # 4.7 10^3/uL (1.5-8.5); PLATELET COUNT, AUTOMATED 144 10^3/uL (150-450); RED BLOOD COUNT 4.79 10^6/uL (4.30-6.10); WHITE BLOOD COUNT 6.5 10^3/uL (4.0-10.0)
[2022-12-08 12:21] LABS: INR 2.26; PROTHROMBIN TIME 25.3 SECONDS (12.5-14.5)
[2022-12-08 12:52] LABS: ALBUMIN 3.6 G/DL (3.2-5.2); ALKALINE PHOSPHATASE 107 U/L (46-116); ALT/SGPT 16 U/L (7.0-40); AST/SGOT 14 U/L (<34); BILIRUBIN,TOTAL 0.4 MG/DL (0.3-1.2); BLOOD UREA NITROGEN 18 MG/DL (9-23); C REACTIVE PROTEIN QUANTITATIV < 0.40 MG/DL (<1.0); CALCIUM LEVEL 8.4 MG/DL (8.3-10.6); CARBON DIOXIDE LEVEL 27 MMOL/L (20-31); CHLORIDE LEVEL 99 MMOL/L (98-107); CREATININE FOR GFR 1.23 MG/DL (0.70-1.30); GLOMERULAR FILTRATION RATE > 60.0 (>49); GLUCOSE, FASTING 131 MG/DL (74-106); POTASSIUM SERUM 4.2 MMOL/L (3.5-5.1); SODIUM LEVEL 135 MMOL/L (136-145); TOTAL PROTEIN 6.4 G/DL (5.7-8.2)
== END ==
LOC: M LAB REF 11:54
PROVIDERS: ATTEND Nurse Practitioner Acute Care
DX: F32.A Depression, unspecified (principal); N17.9 Acute kidney failure, unspecified; N18.9 Chronic kidney disease, unspecified; T82.7XXA Infection and inflammatory reaction due to other cardiac and vascular devices, implants and grafts, initial encounter

== ENCOUNTER → 2022-12-15 | Outpatient (REF) | payer OTHER ==
[2022-12-15 16:39] LABS: BASO % 0.6 % (0.0-1.0); HEMATOCRIT 41.1 % (42.0-52.0); HEMOGLOBIN 13.3 g/dl (13.5-17.5); LYMPH # 1.2 10^3/uL (1.5-5.0); LYMPH % 17.4 % (24.0-44.0); MEAN CORPUSCULAR HEMOGLOBIN 28.8 pg (27.0-33.0); MEAN CORPUSCULAR HGB CONC 32.4 g/dl (32.0-36.5); MONO # 0.7 10^3/uL (0.0-0.8); MONO % 10.2 % (2.0-8.0); NEUTROPHILS # 4.8 10^3/uL (1.5-8.5); NEUTROPHILS % 71.2 % (36.0-66.0); PLATELET COUNT, AUTOMATED 168 10^3/uL (150-450); RED BLOOD COUNT 4.62 10^6/uL (4.30-6.10); WHITE BLOOD COUNT 6.7 10^3/uL (4.0-10.0)
[2022-12-15 16:51] LABS: INR 2.67; PROTHROMBIN TIME 28.9 SECONDS (12.5-14.5)
[2022-12-15 17:16] LABS: C REACTIVE PROTEIN QUANTITATIV < 0.40 MG/DL (<1.0)
[2022-12-15 17:18] LABS: ALBUMIN 3.6 G/DL (3.2-5.2); ALKALINE PHOSPHATASE 104 U/L (46-116); ALT/SGPT 16 U/L (7.0-40); AST/SGOT 25 U/L (<34); BILIRUBIN,TOTAL 0.4 MG/DL (0.3-1.2); BLOOD UREA NITROGEN 19 MG/DL (9-23); CALCIUM LEVEL 8.8 MG/DL (8.3-10.6); CARBON DIOXIDE LEVEL 27 MMOL/L (20-31); CHLORIDE LEVEL 102 MMOL/L (98-107); GLOMERULAR FILTRATION RATE 59.7 (>49); GLUCOSE, FASTING 80 MG/DL (74-106); MAGNESIUM LEVEL 1.9 MG/DL (1.8-2.4); POTASSIUM SERUM 4.5 MMOL/L (3.5-5.1); SODIUM LEVEL 135 MMOL/L (136-145); TOTAL PROTEIN 6.6 G/DL (5.7-8.2)
== END ==
LOC: M LAB REF 16:01
PROVIDERS: ATTEND Nurse Practitioner Acute Care
DX: N17.9 Acute kidney failure, unspecified (principal); N18.9 Chronic kidney disease, unspecified; F32.A Depression, unspecified; T82.7XXA Infection and inflammatory reaction due to other cardiac and vascular devices, implants and grafts, initial encounter

== ENCOUNTER → 2022-12-22 | Outpatient (REF) | payer OTHER ==
[2022-12-22 13:04] LABS: BASO % 0.4 % (0.0-1.0); HEMATOCRIT 43.5 % (42.0-52.0); LYMPH # 1.1 10^3/uL (1.5-5.0); LYMPH % 15.3 % (24.0-44.0); MEAN CORPUSCULAR HEMOGLOBIN 28.5 pg (27.0-33.0); MEAN CORPUSCULAR HGB CONC 32.2 g/dl (32.0-36.5); MEAN CORPUSCULAR VOLUME 88.4 fl (80.0-96.0); MONO # 0.8 10^3/uL (0.0-0.8); MONO % 10.1 % (2.0-8.0); NEUTROPHILS # 5.5 10^3/uL (1.5-8.5); NEUTROPHILS % 73.7 % (36.0-66.0); PLATELET COUNT, AUTOMATED 173 10^3/uL (150-450); RED BLOOD COUNT 4.92 10^6/uL (4.30-6.10); WHITE BLOOD COUNT 7.5 10^3/uL (4.0-10.0)
[2022-12-22 13:16] LABS: INR 2.3; PROTHROMBIN TIME 25.7 SECONDS (12.5-14.5)
[2022-12-22 13:40] LABS: C REACTIVE PROTEIN QUANTITATIV < 0.40 MG/DL (<1.0)
[2022-12-22 13:42] LABS: ALBUMIN 3.9 G/DL (3.2-5.2); ALKALINE PHOSPHATASE 108 U/L (46-116); ALT/SGPT 14 U/L (7.0-40); AST/SGOT 28 U/L (<34); BILIRUBIN,TOTAL 0.4 MG/DL (0.3-1.2); BLOOD UREA NITROGEN 17 MG/DL (9-23); CALCIUM LEVEL 8.6 MG/DL (8.3-10.6); CARBON DIOXIDE LEVEL 24 MMOL/L (20-31); CHLORIDE LEVEL 101 MMOL/L (98-107); GLOMERULAR FILTRATION RATE > 60.0 (>49); GLUCOSE, FASTING 87 MG/DL (74-106); POTASSIUM SERUM 4.5 MMOL/L (3.5-5.1); SODIUM LEVEL 135 MMOL/L (136-145); TOTAL PROTEIN 6.7 G/DL (5.7-8.2)
== END ==
LOC: M LAB REF 12:20
PROVIDERS: ATTEND Nurse Practitioner Acute Care
DX: N18.9 Chronic kidney disease, unspecified (principal); T82.7XXA Infection and inflammatory reaction due to other cardiac and vascular devices, implants and grafts, initial encounter; N17.9 Acute kidney failure, unspecified; F32.A Depression, unspecified

== ENCOUNTER → 2022-12-29 | Outpatient (REF) | payer OTHER ==
[2022-12-29 14:00] LABS: INR 2.45
[2022-12-29 14:40] LABS: C REACTIVE PROTEIN QUANTITATIV 2.4 MG/DL (<1.0)
[2022-12-29 14:42] LABS: ALBUMIN 3.9 G/DL (3.2-5.2); BILIRUBIN,TOTAL 0.4 MG/DL (0.3-1.2); CALCIUM LEVEL 8.7 MG/DL (8.3-10.6); CREATININE FOR GFR 1.31 MG/DL (0.70-1.30); GLOMERULAR FILTRATION RATE 59.2 (>49); MAGNESIUM LEVEL 1.8 MG/DL (1.8-2.4); POTASSIUM SERUM 4.2 MMOL/L (3.5-5.1); TOTAL PROTEIN 7.1 G/DL (5.7-8.2)
== END ==
LOC: M LAB REF 12:46
PROVIDERS: ATTEND Nurse Practitioner Acute Care
DX: T82.7XXA Infection and inflammatory reaction due to other cardiac and vascular devices, implants and grafts, initial encounter (principal); N17.9 Acute kidney failure, unspecified; N18.9 Chronic kidney disease, unspecified; F32.A Depression, unspecified

== ENCOUNTER → 2023-01-15 | Outpatient (REF) | payer OTHER ==
[2023-01-15 13:40] LABS: BASO # 0.1 10^3/uL (0.0-0.2); BASO % 0.6 % (0.0-1.0); HEMATOCRIT 46.3 % (42.0-52.0); HEMOGLOBIN 15.1 g/dl (13.5-17.5); LYMPH # 1.3 10^3/uL (1.5-5.0); LYMPH % 12.9 % (24.0-44.0); MEAN CORPUSCULAR HEMOGLOBIN 28.1 pg (27.0-33.0); MEAN CORPUSCULAR HGB CONC 32.6 g/dl (32.0-36.5); MEAN CORPUSCULAR VOLUME 86.2 fl (80.0-96.0); MONO # 0.9 10^3/uL (0.0-0.8); MONO % 8.4 % (2.0-8.0); NEUTROPHILS % 77.2 % (36.0-66.0); PLATELET COUNT, AUTOMATED 211 10^3/uL (150-450); RED BLOOD COUNT 5.37 10^6/uL (4.30-6.10); WHITE BLOOD COUNT 10.3 10^3/uL (4.0-10.0)
[2023-01-15 13:46] LABS: C REACTIVE PROTEIN QUANTITATIV 0.5 MG/DL (<1.0)
[2023-01-15 13:47] LABS: ALBUMIN 3.9 G/DL (3.2-5.2); BILIRUBIN,TOTAL 0.6 MG/DL (0.3-1.2); CALCIUM LEVEL 8.9 MG/DL (8.3-10.6); CREATININE FOR GFR 1.41 MG/DL (0.70-1.30); GLOMERULAR FILTRATION RATE 54.4 (>49); MAGNESIUM LEVEL 1.9 MG/DL (1.8-2.4); POTASSIUM SERUM 4.8 MMOL/L (3.5-5.1); TOTAL PROTEIN 6.9 G/DL (5.7-8.2)
[2023-01-15 13:51] LABS: INR 2.01; PROTHROMBIN TIME 23.1 SECONDS (12.5-14.5)
== END ==
LOC: M LABDRWAD 12:36
PROVIDERS: ATTEND Nurse Practitioner Acute Care
DX: Z79.01 Long term (current) use of anticoagulants (principal); E83.42 Hypomagnesemia; Z95.811 Presence of heart assist device; I50.9 Heart failure, unspecified; B99.9 Unspecified infectious disease; Z79.899 Other long term (current) drug therapy

== ENCOUNTER → 2023-02-16 | Outpatient (REF) | payer OTHER ==
[~2023-02-16] MED LIST changes: -K-TA10TA2 PO; +POTA-165 PO
[2023-02-16 13:25] LABS: BASO # 0.1 10^3/uL (0.0-0.2); BASO % 0.6 % (0.0-1.0); HEMATOCRIT 46.4 % (42.0-52.0); HEMOGLOBIN 14.8 g/dl (13.5-17.5); LYMPH # 1.1 10^3/uL (1.5-5.0); LYMPH % 12.3 % (24.0-44.0); MEAN CORPUSCULAR HEMOGLOBIN 27.3 pg (27.0-33.0); MEAN CORPUSCULAR HGB CONC 31.9 g/dl (32.0-36.5); MEAN CORPUSCULAR VOLUME 85.6 fl (80.0-96.0); MONO # 0.7 10^3/uL (0.0-0.8); MONO % 8.2 % (2.0-8.0); NEUTROPHILS # 6.7 10^3/uL (1.5-8.5); NEUTROPHILS % 78.2 % (36.0-66.0); PLATELET COUNT, AUTOMATED 178 10^3/uL (150-450); RED BLOOD COUNT 5.42 10^6/uL (4.30-6.10); WHITE BLOOD COUNT 8.6 10^3/uL (4.0-10.0)
[2023-02-16 13:47] LABS: INR 1.81; PROTHROMBIN TIME 21.3 SECONDS (12.5-14.5)
[2023-02-16 13:52] LABS: ALBUMIN 3.6 G/DL (3.2-5.2); ALKALINE PHOSPHATASE 116 U/L (46-116); ALT/SGPT 28 U/L (7.0-40); AST/SGOT 16 U/L (<34); BILIRUBIN,TOTAL 0.5 MG/DL (0.3-1.2); BLOOD UREA NITROGEN 16 MG/DL (9-23); CALCIUM LEVEL 9.1 MG/DL (8.3-10.6); CARBON DIOXIDE LEVEL 24 MMOL/L (20-31); CHLORIDE LEVEL 102 MMOL/L (98-107); CREATININE FOR GFR 1.22 MG/DL (0.70-1.30); GLOMERULAR FILTRATION RATE > 60.0 (>49); GLUCOSE, FASTING 100 MG/DL (74-106); MAGNESIUM LEVEL 1.9 MG/DL (1.8-2.4); POTASSIUM SERUM 4.4 MMOL/L (3.5-5.1); SODIUM LEVEL 136 MMOL/L (136-145); TOTAL PROTEIN 6.5 G/DL (5.7-8.2)
== END ==
LOC: M LABDRWAD 12:55
PROVIDERS: ATTEND Nurse Practitioner Acute Care
DX: Z79.01 Long term (current) use of anticoagulants (principal); Z79.899 Other long term (current) drug therapy; B99.9 Unspecified infectious disease; I50.9 Heart failure, unspecified; E83.42 Hypomagnesemia; Z95.811 Presence of heart assist device

== ENCOUNTER → 2023-03-04 | Outpatient (REF) | payer OTHER ==
[2023-03-04 13:15] LABS: BASO % 0.5 % (0.0-1.0); HEMATOCRIT 47.5 % (42.0-52.0); HEMOGLOBIN 15.3 g/dl (13.5-17.5); LYMPH # 1.2 10^3/uL (1.5-5.0); LYMPH % 13.3 % (24.0-44.0); MEAN CORPUSCULAR HEMOGLOBIN 27.3 pg (27.0-33.0); MEAN CORPUSCULAR HGB CONC 32.2 g/dl (32.0-36.5); MEAN CORPUSCULAR VOLUME 84.7 fl (80.0-96.0); MONO # 0.9 10^3/uL (0.0-0.8); MONO % 9.6 % (2.0-8.0); NEUTROPHILS # 6.7 10^3/uL (1.5-8.5); NEUTROPHILS % 76.1 % (36.0-66.0); PLATELET COUNT, AUTOMATED 196 10^3/uL (150-450); RED BLOOD COUNT 5.61 10^6/uL (4.30-6.10); WHITE BLOOD COUNT 8.8 10^3/uL (4.0-10.0)
[2023-03-04 13:28] LABS: INR 2.27; PROTHROMBIN TIME 25.4 SECONDS (12.5-14.5)
[2023-03-04 13:46] LABS: ALBUMIN 3.6 G/DL (3.2-5.2); ALKALINE PHOSPHATASE 124 U/L (46-116); ALT/SGPT 27 U/L (7.0-40); AST/SGOT 16 U/L (<34); BILIRUBIN,TOTAL 0.5 MG/DL (0.3-1.2); BLOOD UREA NITROGEN 16 MG/DL (9-23); CALCIUM LEVEL 8.7 MG/DL (8.3-10.6); CARBON DIOXIDE LEVEL 25 MMOL/L (20-31); CHLORIDE LEVEL 105 MMOL/L (98-107); CREATININE FOR GFR 1.28 MG/DL (0.70-1.30); GLOMERULAR FILTRATION RATE > 60.0 (>49); GLUCOSE, FASTING 110 MG/DL (74-106); MAGNESIUM LEVEL 1.9 MG/DL (1.8-2.4); POTASSIUM SERUM 4.6 MMOL/L (3.5-5.1); SODIUM LEVEL 137 MMOL/L (136-145); TOTAL PROTEIN 6.7 G/DL (5.7-8.2)
== END ==
LOC: M LABDRWAD 12:40
PROVIDERS: ATTEND Nurse Practitioner Acute Care
DX: E83.42 Hypomagnesemia (principal); Z95.811 Presence of heart assist device; B99.9 Unspecified infectious disease; Z79.01 Long term (current) use of anticoagulants; Z79.899 Other long term (current) drug therapy

== ENCOUNTER → 2023-03-16 | Outpatient (CLI) | payer OTHER ==
[2023-03-16 16:47] LABS: BASO % 0.5 % (0.0-1.0); HEMATOCRIT 49.6 % (42.0-52.0); HEMOGLOBIN 15.9 g/dl (13.5-17.5); LYMPH # 1.2 10^3/uL (1.5-5.0); LYMPH % 13.6 % (24.0-44.0); MEAN CORPUSCULAR HGB CONC 32.1 g/dl (32.0-36.5); MEAN CORPUSCULAR VOLUME 84.2 fl (80.0-96.0); MONO # 0.7 10^3/uL (0.0-0.8); MONO % 8.6 % (2.0-8.0); NEUTROPHILS # 6.5 10^3/uL (1.5-8.5); NEUTROPHILS % 76.8 % (36.0-66.0); PLATELET COUNT, AUTOMATED 176 10^3/uL (150-450); RED BLOOD COUNT 5.89 10^6/uL (4.30-6.10); WHITE BLOOD COUNT 8.5 10^3/uL (4.0-10.0)
[2023-03-16 16:59] LABS: HEMOGLOBIN A1c 5.5 % (4.0-6.0)
[2023-03-16 17:08] LABS: IRON (FE) 59 UG/DL (65-175); PERCENT SATURATION 14.2 % (19.7-50.0); TOTAL IRON BINDING CAPACITY 416 UG/DL (250-425)
[2023-03-16 17:09] LABS: ALBUMIN 3.7 G/DL (3.2-5.2); ALKALINE PHOSPHATASE 122 U/L (46-116); ALT/SGPT 28 U/L (7.0-40); AST/SGOT 17 U/L (<34); BILIRUBIN,TOTAL 0.6 MG/DL (0.3-1.2); BLOOD UREA NITROGEN 19 MG/DL (9-23); CALCIUM LEVEL 8.7 MG/DL (8.3-10.6); CARBON DIOXIDE LEVEL 24 MMOL/L (20-31); CHLORIDE LEVEL 104 MMOL/L (98-107); CREATININE FOR GFR 1.18 MG/DL (0.70-1.30); GLOMERULAR FILTRATION RATE > 60.0 (>49); GLUCOSE, FASTING 100 MG/DL (74-106); MAGNESIUM LEVEL 2.1 MG/DL (1.8-2.4); POTASSIUM SERUM 4.4 MMOL/L (3.5-5.1); SODIUM LEVEL 135 MMOL/L (136-145); TOTAL PROTEIN 6.7 G/DL (5.7-8.2)
[2023-03-16 17:11] LABS: FERRITIN 27.7 NG/ML (10.5-307.3); THYROID STIMULATING HORMONE 3.542 uIU/ML (0.55-4.78)
[2023-03-16 17:17] LABS: INR 2.18; PROTHROMBIN TIME 24.6 SECONDS (12.5-14.5)
== END ==
LOC: M LABDRWAD 12:43
DX: R57.0 Cardiogenic shock (principal); T82 Complications of cardiac and vascular prosthetic devices, implants and grafts; Z95.811 Presence of heart assist device; I50.810 Right heart failure, unspecified; I25.5 Ischemic cardiomyopathy; I50.42 Chronic combined systolic (congestive) and diastolic (congestive) heart failure; I47.1 Supraventricular tachycardia; I44.7 Left bundle-branch block, unspecified; Z95.810 Presence of automatic (implantable) cardiac defibrillator; I47.29 Other ventricular tachycardia; A49.01 Methicillin susceptible Staphylococcus aureus infection, unspecified site; I10 Essential (primary) hypertension; E78.5 Hyperlipidemia, unspecified; I77.89 Other specified disorders of arteries and arterioles; I70.0 Atherosclerosis of aorta; G45.9 Transient cerebral ischemic attack, unspecified; N28.1 Cyst of kidney, acquired; K76.0 Fatty (change of) liver, not elsewhere classified; K80.20 Calculus of gallbladder without cholecystitis without obstruction; R74.01 Elevation of levels of liver transaminase levels; K86.89 Other specified diseases of pancreas; R91.1 Solitary pulmonary nodule; G47.33 Obstructive sleep apnea (adult) (pediatric); J98.4 Other disorders of lung; E66.01 Morbid (severe) obesity due to excess calories; E11.65 Type 2 diabetes mellitus with hyperglycemia; E03.9 Hypothyroidism, unspecified; Z87.891 Personal history of nicotine dependence; F33.9 Major depressive disorder, recurrent, unspecified; M10.9 Gout, unspecified; F10.91 Alcohol use, unspecified, in remission
CPT/HCPCS: 36415; 80053; 80307; 80321; 82610; 82728; 83036; 83550; 83735; 84443; 84466; 85025; 85610; 86140; G0480

== ENCOUNTER → 2023-03-16 | Outpatient (CLI) | payer OTHER ==
[2023-03-16 16:48] LABS: BASO % 0.5 % (0.0-1.0); HEMATOCRIT 49.5 % (42.0-52.0); HEMOGLOBIN 15.8 g/dl (13.5-17.5); LYMPH # 1.1 10^3/uL (1.5-5.0); LYMPH % 13.4 % (24.0-44.0); MEAN CORPUSCULAR HEMOGLOBIN 26.7 pg (27.0-33.0); MEAN CORPUSCULAR HGB CONC 31.9 g/dl (32.0-36.5); MEAN CORPUSCULAR VOLUME 83.6 fl (80.0-96.0); MONO # 0.7 10^3/uL (0.0-0.8); MONO % 8.6 % (2.0-8.0); NEUTROPHILS # 6.5 10^3/uL (1.5-8.5); NEUTROPHILS % 76.9 % (36.0-66.0); PLATELET COUNT, AUTOMATED 179 10^3/uL (150-450); RED BLOOD COUNT 5.92 10^6/uL (4.30-6.10); WHITE BLOOD COUNT 8.5 10^3/uL (4.0-10.0)
[2023-03-16 17:07] LABS: LDH LACTATE DEHYDROGENASE 223 U/L (120-246)
[2023-03-16 17:08] LABS: ALBUMIN 3.7 G/DL (3.2-5.2); ALKALINE PHOSPHATASE 124 U/L (46-116); ALT/SGPT 29 U/L (7.0-40); AST/SGOT 16 U/L (<34); BILIRUBIN,TOTAL 0.6 MG/DL (0.3-1.2); BLOOD UREA NITROGEN 19 MG/DL (9-23); CALCIUM LEVEL 8.9 MG/DL (8.3-10.6); CARBON DIOXIDE LEVEL 26 MMOL/L (20-31); CHLORIDE LEVEL 101 MMOL/L (98-107); CREATININE FOR GFR 1.18 MG/DL (0.70-1.30); GLOMERULAR FILTRATION RATE > 60.0 (>49); GLUCOSE, FASTING 97 MG/DL (74-106); MAGNESIUM LEVEL 2.1 MG/DL (1.8-2.4); POTASSIUM SERUM 4.5 MMOL/L (3.5-5.1); SODIUM LEVEL 137 MMOL/L (136-145); TOTAL PROTEIN 6.9 G/DL (5.7-8.2)
[2023-03-16 17:18] LABS: INR 2.16; PROTHROMBIN TIME 24.5 SECONDS (12.5-14.5)
== END ==
LOC: M LABDRWAD 12:48
PROVIDERS: ATTEND Nurse Practitioner Acute Care
DX: Z79.899 Other long term (current) drug therapy (principal); I25.5 Ischemic cardiomyopathy; Z79.01 Long term (current) use of anticoagulants; T82.897A Other specified complication of cardiac prosthetic devices, implants and grafts, initial encounter; D59.4 Other nonautoimmune hemolytic anemias; E83.42 Hypomagnesemia

== ENCOUNTER → 2023-04-06 | Outpatient (REF) | payer OTHER ==
[2023-04-06 15:11] LABS: BASO % 0.5 % (0.0-1.0); HEMATOCRIT 51.4 % (42.0-52.0); HEMOGLOBIN 16.2 g/dl (13.5-17.5); LYMPH # 1.2 10^3/uL (1.5-5.0); LYMPH % 14.4 % (24.0-44.0); MEAN CORPUSCULAR HEMOGLOBIN 26.7 pg (27.0-33.0); MEAN CORPUSCULAR HGB CONC 31.5 g/dl (32.0-36.5); MEAN CORPUSCULAR VOLUME 84.8 fl (80.0-96.0); MONO # 0.9 10^3/uL (0.0-0.8); MONO % 9.8 % (2.0-8.0); NEUTROPHILS # 6.5 10^3/uL (1.5-8.5); NEUTROPHILS % 74.7 % (36.0-66.0); PLATELET COUNT, AUTOMATED 170 10^3/uL (150-450); RED BLOOD COUNT 6.06 10^6/uL (4.30-6.10); WHITE BLOOD COUNT 8.6 10^3/uL (4.0-10.0)
[2023-04-06 15:33] LABS: INR 2.19; PROTHROMBIN TIME 23.8 SECONDS (12.5-14.5)
[2023-04-06 15:41] LABS: C REACTIVE PROTEIN QUANTITATIV 0.5 MG/DL (<1.0)
[2023-04-06 15:42] LABS: ALBUMIN 3.7 G/DL (3.2-5.2); BILIRUBIN,TOTAL 0.5 MG/DL (0.3-1.2); CALCIUM LEVEL 9.1 MG/DL (8.3-10.6); CREATININE FOR GFR 1.3 MG/DL (0.70-1.30); GLOMERULAR FILTRATION RATE 59.5 (>49); MAGNESIUM LEVEL 1.9 MG/DL (1.8-2.4); POTASSIUM SERUM 4.4 MMOL/L (3.5-5.1); TOTAL PROTEIN 6.8 G/DL (5.7-8.2)
== END ==
LOC: M LAB REF 12:14
PROVIDERS: ATTEND Nurse Practitioner Acute Care
DX: Z79.01 Long term (current) use of anticoagulants (principal); Z79.899 Other long term (current) drug therapy; Z95.811 Presence of heart assist device; B99.9 Unspecified infectious disease; E83.42 Hypomagnesemia

== ENCOUNTER → 2023-04-29 | Outpatient (CLI) | payer OTHER ==
[~2023-04-29] MED LIST changes: +EZET10TA58 PO; -ZETI10TA16 PO
[2023-04-29 17:57] LABS: C REACTIVE PROTEIN QUANTITATIV < 0.40 MG/DL (<1.0)
[2023-04-29 17:59] LABS: ALBUMIN 3.6 G/DL (3.2-5.2); ALKALINE PHOSPHATASE 111 U/L (46-116); ALT/SGPT 27 U/L (7.0-40); AST/SGOT 16 U/L (<34); BILIRUBIN,TOTAL 0.4 MG/DL (0.3-1.2); BLOOD UREA NITROGEN 18 MG/DL (9-23); CALCIUM LEVEL 8.8 MG/DL (8.3-10.6); CARBON DIOXIDE LEVEL 24 MMOL/L (20-31); CHLORIDE LEVEL 104 MMOL/L (98-107); CREATININE FOR GFR 1.29 MG/DL (0.70-1.30); GLOMERULAR FILTRATION RATE > 60.0 (>49); GLUCOSE, FASTING 120 MG/DL (74-106); MAGNESIUM LEVEL 1.9 MG/DL (1.8-2.4); POTASSIUM SERUM 4.3 MMOL/L (3.5-5.1); SODIUM LEVEL 136 MMOL/L (136-145); TOTAL PROTEIN 6.5 G/DL (5.7-8.2)
[2023-04-29 18:04] LABS: BASO % 0.5 % (0.0-1.0); HEMATOCRIT 50.5 % (42.0-52.0); HEMOGLOBIN 16.2 g/dl (13.5-17.5); LYMPH # 1.1 10^3/uL (1.5-5.0); LYMPH % 12.9 % (24.0-44.0); MEAN CORPUSCULAR HEMOGLOBIN 26.8 pg (27.0-33.0); MEAN CORPUSCULAR HGB CONC 32.1 g/dl (32.0-36.5); MEAN CORPUSCULAR VOLUME 83.5 fl (80.0-96.0); MONO # 0.7 10^3/uL (0.0-0.8); MONO % 8.7 % (2.0-8.0); NEUTROPHILS # 6.5 10^3/uL (1.5-8.5); NEUTROPHILS % 77.3 % (36.0-66.0); PLATELET COUNT, AUTOMATED 173 10^3/uL (150-450); RED BLOOD COUNT 6.05 10^6/uL (4.30-6.10); WHITE BLOOD COUNT 8.4 10^3/uL (4.0-10.0)
[2023-04-29 18:32] LABS: INR 2.28; PROTHROMBIN TIME 24.6 SECONDS (12.5-14.5)
== END ==
LOC: M LABDRWAD 13:13
PROVIDERS: ATTEND Nurse Practitioner Acute Care
DX: Z79.01 Long term (current) use of anticoagulants (principal); E83.42 Hypomagnesemia; Z79.899 Other long term (current) drug therapy; Z95.811 Presence of heart assist device; B99.9 Unspecified infectious disease

== ENCOUNTER → 2023-05-25 | Outpatient (REF) | payer OTHER ==
[2023-05-25 14:11] LABS: BASO # 0.1 10^3/uL (0.0-0.2); BASO % 0.7 % (0.0-1.0); HEMATOCRIT 55.2 % (42.0-52.0); HEMOGLOBIN 17.8 g/dl (13.5-17.5); LYMPH # 1.7 10^3/uL (1.5-5.0); LYMPH % 19.8 % (24.0-44.0); MEAN CORPUSCULAR HEMOGLOBIN 27.7 pg (27.0-33.0); MEAN CORPUSCULAR HGB CONC 32.2 g/dl (32.0-36.5); MEAN CORPUSCULAR VOLUME 85.8 fl (80.0-96.0); MONO # 0.8 10^3/uL (0.0-0.8); MONO % 9.3 % (2.0-8.0); NEUTROPHILS # 5.9 10^3/uL (1.5-8.5); NEUTROPHILS % 69.7 % (36.0-66.0); PLATELET COUNT, AUTOMATED 195 10^3/uL (150-450); RED BLOOD COUNT 6.43 10^6/uL (4.30-6.10); WHITE BLOOD COUNT 8.4 10^3/uL (4.0-10.0)
[2023-05-25 14:30] LABS: INR 2.24; PROTHROMBIN TIME 24.2 SECONDS (12.5-14.5)
[2023-05-25 14:37] LABS: ALBUMIN 3.8 G/DL (3.2-5.2); ALKALINE PHOSPHATASE 138 U/L (46-116); ALT/SGPT 31 U/L (7.0-40); AST/SGOT 19 U/L (<34); BILIRUBIN,TOTAL 0.8 MG/DL (0.3-1.2); BLOOD UREA NITROGEN 15 MG/DL (9-23); CALCIUM LEVEL 9.1 MG/DL (8.3-10.6); CARBON DIOXIDE LEVEL 29 MMOL/L (20-31); CHLORIDE LEVEL 101 MMOL/L (98-107); CREATININE FOR GFR 1.25 MG/DL (0.70-1.30); GLOMERULAR FILTRATION RATE > 60.0 (>49); GLUCOSE, FASTING 110 MG/DL (74-106); MAGNESIUM LEVEL 2.1 MG/DL (1.8-2.4); POTASSIUM SERUM 4.6 MMOL/L (3.5-5.1); SODIUM LEVEL 139 MMOL/L (136-145)
== END ==
LOC: M LABDRWAD 13:05
PROVIDERS: ATTEND Nurse Practitioner Acute Care
DX: E83.42 Hypomagnesemia (principal); B99.9 Unspecified infectious disease; Z95.811 Presence of heart assist device; Z79.899 Other long term (current) drug therapy; Z79.01 Long term (current) use of anticoagulants

== ENCOUNTER → 2023-06-15 | Outpatient (REF) | payer OTHER ==
[2023-06-15 13:47] LABS: BASO % 0.5 % (0.0-1.0); HEMATOCRIT 50.8 % (42.0-52.0); HEMOGLOBIN 16.6 g/dl (13.5-17.5); LYMPH # 1.1 10^3/uL (1.5-5.0); LYMPH % 14.4 % (24.0-44.0); MEAN CORPUSCULAR HEMOGLOBIN 27.8 pg (27.0-33.0); MEAN CORPUSCULAR HGB CONC 32.7 g/dl (32.0-36.5); MEAN CORPUSCULAR VOLUME 85.1 fl (80.0-96.0); MONO # 0.8 10^3/uL (0.0-0.8); MONO % 9.5 % (2.0-8.0); NEUTROPHILS # 5.9 10^3/uL (1.5-8.5); NEUTROPHILS % 75.1 % (36.0-66.0); PLATELET COUNT, AUTOMATED 157 10^3/uL (150-450); RED BLOOD COUNT 5.97 10^6/uL (4.30-6.10); WHITE BLOOD COUNT 7.9 10^3/uL (4.0-10.0)
[2023-06-15 13:57] LABS: INR 2.19; PROTHROMBIN TIME 23.6 SECONDS (12.5-14.5)
[2023-06-15 14:13] LABS: C REACTIVE PROTEIN QUANTITATIV 0.5 MG/DL (<1.0)
[2023-06-15 14:14] LABS: ALBUMIN 3.6 G/DL (3.2-5.2); BILIRUBIN,TOTAL 0.7 MG/DL (0.3-1.2); CALCIUM LEVEL 8.8 MG/DL (8.3-10.6); CREATININE FOR GFR 1.3 MG/DL (0.70-1.30); GLOMERULAR FILTRATION RATE 59.5 (>49); MAGNESIUM LEVEL 1.9 MG/DL (1.8-2.4); POTASSIUM SERUM 4.3 MMOL/L (3.5-5.1); TOTAL PROTEIN 6.6 G/DL (5.7-8.2)
== END ==
LOC: M LABDRWAD 12:39
PROVIDERS: ATTEND Nurse Practitioner Acute Care
DX: E83.42 Hypomagnesemia (principal); B99.9 Unspecified infectious disease; Z95.811 Presence of heart assist device; Z79.899 Other long term (current) drug therapy; Z79.01 Long term (current) use of anticoagulants

== ENCOUNTER → 2023-07-13 | Outpatient (REF) | payer OTHER ==
[2023-07-13 13:17] LABS: BASO % 0.6 % (0.0-1.0); HEMATOCRIT 51.4 % (42.0-52.0); HEMOGLOBIN 16.6 g/dl (13.5-17.5); LYMPH # 1.2 10^3/uL (1.5-5.0); LYMPH % 16.1 % (24.0-44.0); MEAN CORPUSCULAR HEMOGLOBIN 27.9 pg (27.0-33.0); MEAN CORPUSCULAR HGB CONC 32.3 g/dl (32.0-36.5); MEAN CORPUSCULAR VOLUME 86.5 fl (80.0-96.0); MONO # 0.7 10^3/uL (0.0-0.8); MONO % 9.6 % (2.0-8.0); NEUTROPHILS # 5.3 10^3/uL (1.5-8.5); NEUTROPHILS % 73.1 % (36.0-66.0); PLATELET COUNT, AUTOMATED 188 10^3/uL (150-450); RED BLOOD COUNT 5.94 10^6/uL (4.30-6.10); WHITE BLOOD COUNT 7.2 10^3/uL (4.0-10.0)
[2023-07-13 13:28] LABS: INR 2.74
[2023-07-13 13:39] LABS: ALBUMIN 3.7 G/DL (3.2-5.2); ALKALINE PHOSPHATASE 116 U/L (46-116); ALT/SGPT 29 U/L (7.0-40); AST/SGOT 17 U/L (<34); BILIRUBIN,TOTAL 0.7 MG/DL (0.3-1.2); BLOOD UREA NITROGEN 17 MG/DL (9-23); CARBON DIOXIDE LEVEL 30 MMOL/L (20-31); CHLORIDE LEVEL 102 MMOL/L (98-107); CREATININE FOR GFR 1.25 MG/DL (0.70-1.30); GLOMERULAR FILTRATION RATE > 60.0 (>49); GLUCOSE, FASTING 102 MG/DL (74-106); POTASSIUM SERUM 4.1 MMOL/L (3.5-5.1); SODIUM LEVEL 138 MMOL/L (136-145); TOTAL PROTEIN 6.7 G/DL (5.7-8.2)
== END ==
LOC: M LABDRWAD 12:28
PROVIDERS: ATTEND Nurse Practitioner Acute Care
DX: Z79.01 Long term (current) use of anticoagulants (principal); B99.9 Unspecified infectious disease; E83.42 Hypomagnesemia; Z95.811 Presence of heart assist device; Z79.899 Other long term (current) drug therapy

== ENCOUNTER → 2023-09-14 | Outpatient (REF) | payer OTHER ==
[~2023-09-14] MED LIST changes: -HYDR-3911 PO; +HYDR50TA46 PO
[2023-09-14 16:10] LABS: BASO % 0.5 % (0.0-1.0); EOS % 0.3 % (0.0-3.0); HEMATOCRIT 50.7 % (42.0-52.0); HEMOGLOBIN 16.2 g/dl (13.5-17.5); LYMPH % 13.3 % (24.0-44.0); MEAN CORPUSCULAR HEMOGLOBIN 28.1 pg (27.0-33.0); MONO # 0.5 10^3/uL (0.0-0.8); MONO % 6.3 % (2.0-8.0); NEUTROPHILS # 6.1 10^3/uL (1.5-8.5); NEUTROPHILS % 78.7 % (36.0-66.0); PLATELET COUNT, AUTOMATED 151 10^3/uL (150-450); RED BLOOD COUNT 5.76 10^6/uL (4.30-6.10); WHITE BLOOD COUNT 7.8 10^3/uL (4.0-10.0)
[2023-09-14 16:22] LABS: INR 2.71; PROTHROMBIN TIME 27.8 SECONDS (12.5-14.5)
[2023-09-14 17:24] LABS: ALBUMIN 3.5 G/DL (3.2-5.2); BILIRUBIN,TOTAL 0.7 MG/DL (0.3-1.2); CALCIUM LEVEL 8.5 MG/DL (8.3-10.6); CREATININE FOR GFR 1.31 MG/DL (0.70-1.30); MAGNESIUM LEVEL 1.9 MG/DL (1.8-2.4); POTASSIUM SERUM 4.4 MMOL/L (3.5-5.1); TOTAL PROTEIN 6.3 G/DL (5.7-8.2)
== END ==
LOC: M LABDRWAD 15:54
PROVIDERS: ATTEND Nurse Practitioner Acute Care
DX: Z79.01 Long term (current) use of anticoagulants (principal); E83.42 Hypomagnesemia; Z79.899 Other long term (current) drug therapy; Z95.811 Presence of heart assist device; B99.9 Unspecified infectious disease

== ENCOUNTER → 2023-10-14 | Outpatient (REF) | payer OTHER ==
[~2023-10-14] MED LIST changes: -HYDR-3910 PO; +HYDR25TA87 PO
[2023-10-14 13:00] LABS: BASO % 0.5 % (0.0-1.0); HEMATOCRIT 51.2 % (42.0-52.0); HEMOGLOBIN 16.5 g/dl (13.5-17.5); LYMPH # 1.4 10^3/uL (1.5-5.0); LYMPH % 16.3 % (24.0-44.0); MEAN CORPUSCULAR HEMOGLOBIN 28.1 pg (27.0-33.0); MEAN CORPUSCULAR HGB CONC 32.2 g/dl (32.0-36.5); MEAN CORPUSCULAR VOLUME 87.1 fl (80.0-96.0); MONO # 0.8 10^3/uL (0.0-0.8); MONO % 9.5 % (2.0-8.0); NEUTROPHILS # 6.5 10^3/uL (1.5-8.5); NEUTROPHILS % 73.2 % (36.0-66.0); PLATELET COUNT, AUTOMATED 180 10^3/uL (150-450); RED BLOOD COUNT 5.88 10^6/uL (4.30-6.10); WHITE BLOOD COUNT 8.8 10^3/uL (4.0-10.0)
[2023-10-14 13:11] LABS: ALBUMIN 3.7 G/DL (3.2-5.2); ALKALINE PHOSPHATASE 114 U/L (46-116); ALT/SGPT 27 U/L (7.0-40); AST/SGOT 19 U/L (<34); BILIRUBIN,TOTAL 0.7 MG/DL (0.3-1.2); BLOOD UREA NITROGEN 20 MG/DL (9-23); CALCIUM LEVEL 8.3 MG/DL (8.3-10.6); CARBON DIOXIDE LEVEL 28 MMOL/L (20-31); CHLORIDE LEVEL 105 MMOL/L (98-107); CHOLESTEROL LEVEL 129 MG/DL (<200); CHOLESTEROL RISK RATIO 2.79 (<5); CREATININE FOR GFR 1.23 MG/DL (0.70-1.30); GLOMERULAR FILTRATION RATE > 60.0 (>49); GLUCOSE, FASTING 117 MG/DL (74-106); HDL CHOLESTEROL 46.2 MG/DL (>40); LDL CHOLESTEROL 47.6 MG/DL (<100); NON-HDL-C 82.8 MG/DL; POTASSIUM SERUM 4.4 MMOL/L (3.5-5.1); SODIUM LEVEL 139 MMOL/L (136-145); TOTAL PROTEIN 6.6 G/DL (5.7-8.2); TRIGLYCERIDES LEVEL 176 MG/DL (<150)
[2023-10-14 13:13] LABS: FREE T4 0.88 NG/DL (0.89-1.76); THYROID STIMULATING HORMONE 3.218 uIU/ML (0.55-4.78)
[2023-10-14 13:14] LABS: INR 2.14; PROTHROMBIN TIME 23.2 SECONDS (12.5-14.5)
== END ==
LOC: M LABDRWAD 12:16
PROVIDERS: ATTEND Nurse Practitioner Acute Care
DX: E83.42 Hypomagnesemia (principal); Z95.811 Presence of heart assist device; Z79.01 Long term (current) use of anticoagulants; B99.9 Unspecified infectious disease; Z79.899 Other long term (current) drug therapy

== ENCOUNTER → 2023-11-18 | Outpatient (REF) | payer OTHER ==
[2023-11-18 12:56] LABS: BASO # 0.1 10^3/uL (0.0-0.2); BASO % 0.7 % (0.0-1.0); HEMATOCRIT 52.9 % (42.0-52.0); HEMOGLOBIN 17.4 g/dl (13.5-17.5); LYMPH # 1.5 10^3/uL (1.5-5.0); LYMPH % 17.6 % (24.0-44.0); MEAN CORPUSCULAR HEMOGLOBIN 28.9 pg (27.0-33.0); MEAN CORPUSCULAR HGB CONC 32.9 g/dl (32.0-36.5); MEAN CORPUSCULAR VOLUME 87.7 fl (80.0-96.0); MONO # 0.9 10^3/uL (0.0-0.8); MONO % 10.2 % (2.0-8.0); NEUTROPHILS # 5.9 10^3/uL (1.5-8.5); NEUTROPHILS % 70.9 % (36.0-66.0); PLATELET COUNT, AUTOMATED 187 10^3/uL (150-450); RED BLOOD COUNT 6.03 10^6/uL (4.30-6.10); WHITE BLOOD COUNT 8.3 10^3/uL (4.0-10.0)
[2023-11-18 13:11] LABS: INR 2.12
[2023-11-18 13:27] LABS: ALBUMIN 3.9 G/DL (3.2-5.2); ALKALINE PHOSPHATASE 115 U/L (46-116); ALT/SGPT 27 U/L (7.0-40); AST/SGOT 18 U/L (<34); BILIRUBIN,TOTAL 0.6 MG/DL (0.3-1.2); BLOOD UREA NITROGEN 15 MG/DL (9-23); CALCIUM LEVEL 9.2 MG/DL (8.3-10.6); CARBON DIOXIDE LEVEL 29 MMOL/L (20-31); CHLORIDE LEVEL 105 MMOL/L (98-107); CREATININE FOR GFR 1.26 MG/DL (0.70-1.30); GLOMERULAR FILTRATION RATE > 60.0 (>49); GLUCOSE, FASTING 113 MG/DL (74-106); POTASSIUM SERUM 4.3 MMOL/L (3.5-5.1); SODIUM LEVEL 141 MMOL/L (136-145); TOTAL PROTEIN 6.8 G/DL (5.7-8.2)
== END ==
LOC: M LABDRWAD 12:20
PROVIDERS: ATTEND Nurse Practitioner Acute Care
DX: Z79.01 Long term (current) use of anticoagulants (principal); E83.42 Hypomagnesemia; Z95.811 Presence of heart assist device; Z79.899 Other long term (current) drug therapy

== ENCOUNTER 2023-12-11 21:16 | Emergency (ER) | payer OTHER ==
[~2023-12-11] VITALS: Ht 185.4 cm; Wt 160.0 kg
[2023-12-11] MEDS: TRANEXAMIC ACID 100 MG/ML 10ML VIAL ONE (22:00)
[2023-12-11 22:11] LABS: HEMATOCRIT 48.9 % (42.0-52.0); MEAN CORPUSCULAR HEMOGLOBIN 28.4 pg (27.0-33.0); MEAN CORPUSCULAR HGB CONC 32.7 g/dl (32.0-36.5); MEAN CORPUSCULAR VOLUME 86.7 fl (80.0-96.0); PLATELET COUNT, AUTOMATED 199 10^3/uL (150-450); RED BLOOD COUNT 5.64 10^6/uL (4.30-6.10); WHITE BLOOD COUNT 9.4 10^3/uL (4.0-10.0)
[2023-12-11 22:26] LABS: INR 2.34; PARTIAL THROMBOPLASTIN TIME 33.2 SECONDS (24.8-34.2); PROTHROMBIN TIME 24.8 SECONDS (12.5-14.5)
[2023-12-11] MEDS: OXYMETAZOLINE 0.05% NASAL SPRAY (AFRIN) ONE (22:50)
[2023-12-11] MEDS ORDERED: LIDOCAINE 2% W/EPINEPHRINE 20ML VIAL **PRES FREE As Ordered ONE (23:50)
[2023-12-12] MEDS: LIDOCAINE 2% W/EPINEPHRINE 20ML VIAL **PRES FREE INFIL ONE (00:03)
[2023-12-12 08:01] LABS: HEMATOCRIT 48.1 % (42.0-52.0); HEMOGLOBIN 15.8 g/dl (13.5-17.5)
[2023-12-12] MEDS: LEVOTHYROXINE 75MCG TABLET (0.075MG) PO STA (08:02)
[2023-12-12] MEDS ORDERED: LIDOCAINE W/EPINEPHRINE 1% 20ML VIAL As Ordered ONE (09:15)
[2023-12-12] MEDS: LIDOCAINE W/EPINEPHRINE 1% 20ML VIAL XX ONE (09:17)
[2023-12-12] MEDS ORDERED: ENTR1TAB (11:29)
[2023-12-12] MEDS ORDERED: ALIR150P4 (11:29)
[2023-12-12] MEDS ORDERED: FARX1TAB3 (11:29)
[2023-12-12] MEDS ORDERED: DESV50TA3 (11:29)
[2023-12-12] MEDS ORDERED: METO1TAB32 (11:29)
[2023-12-12 13:15] VITALS: TEMP 96.8
[2023-12-12 13:45] VITALS: O2SAT 97
== END 2023-12-12 14:04 | disposition short-term general hospital (02) ==
LOC: M ED 21:16
DX: R04.0 Epistaxis (principal); Z95.811 Presence of heart assist device; I25.2 Old myocardial infarction; I10 Essential (primary) hypertension; N18.30 Chronic kidney disease, stage 3 unspecified; E03.9 Hypothyroidism, unspecified; Z79.01 Long term (current) use of anticoagulants; Z88.2 Allergy status to sulfonamides; Z79.83 Long term (current) use of bisphosphonates; Z79.899 Other long term (current) drug therapy

== ENCOUNTER → 2023-12-21 | Outpatient (REF) | payer OTHER ==
[~2023-12-21] MED LIST changes: +ALIR150P4; +DESV50TA3; +ENTR1TAB; +FARX1TAB3; +METO1TAB32
[2023-12-21 17:08] LABS: BASO # 0.1 10^3/uL (0.0-0.2); BASO % 0.8 % (0.0-1.0); HEMATOCRIT 43.4 % (42.0-52.0); HEMOGLOBIN 13.8 g/dl (13.5-17.5); LYMPH # 1.5 10^3/uL (1.5-5.0); LYMPH % 18.5 % (24.0-44.0); MEAN CORPUSCULAR HEMOGLOBIN 28.6 pg (27.0-33.0); MEAN CORPUSCULAR HGB CONC 31.8 g/dl (32.0-36.5); MEAN CORPUSCULAR VOLUME 89.9 fl (80.0-96.0); MONO # 0.8 10^3/uL (0.0-0.8); MONO % 9.6 % (2.0-8.0); NEUTROPHILS # 5.6 10^3/uL (1.5-8.5); NEUTROPHILS % 70.3 % (36.0-66.0); PLATELET COUNT, AUTOMATED 234 10^3/uL (150-450); RED BLOOD COUNT 4.83 10^6/uL (4.30-6.10)
[2023-12-21 17:12] LABS: C REACTIVE PROTEIN QUANTITATIV < 0.40 MG/DL (<1.0)
[2023-12-21 17:14] LABS: ALBUMIN 3.5 G/DL (3.2-5.2); ALKALINE PHOSPHATASE 100 U/L (46-116); ALT/SGPT 22 U/L (7.0-40); AST/SGOT 17 U/L (<34); BILIRUBIN,TOTAL 0.5 MG/DL (0.3-1.2); BLOOD UREA NITROGEN 14 MG/DL (9-23); CALCIUM LEVEL 8.7 MG/DL (8.3-10.6); CARBON DIOXIDE LEVEL 27 MMOL/L (20-31); CHLORIDE LEVEL 102 MMOL/L (98-107); CREATININE FOR GFR 1.22 MG/DL (0.70-1.30); GLOMERULAR FILTRATION RATE > 60.0 (>49); GLUCOSE, FASTING 127 MG/DL (74-106); POTASSIUM SERUM 4.4 MMOL/L (3.5-5.1); SODIUM LEVEL 136 MMOL/L (136-145); TOTAL PROTEIN 6.3 G/DL (5.7-8.2)
[2023-12-21 17:22] LABS: INR 2.16; PROTHROMBIN TIME 23.3 SECONDS (12.5-14.5)
== END ==
LOC: M LABDRWAD 16:49
PROVIDERS: ATTEND Nurse Practitioner Acute Care
DX: Z79.01 Long term (current) use of anticoagulants (principal); B99.9 Unspecified infectious disease; Z79.899 Other long term (current) drug therapy; E83.42 Hypomagnesemia; Z95.811 Presence of heart assist device

== ENCOUNTER → 2024-01-20 | Outpatient (REF) | payer OTHER ==
[2024-01-20 13:13] LABS: BASO # 0.1 10^3/uL (0.0-0.2); BASO % 0.6 % (0.0-1.0); HEMATOCRIT 47.2 % (42.0-52.0); HEMOGLOBIN 15.1 g/dl (13.5-17.5); LYMPH # 1.2 10^3/uL (1.5-5.0); LYMPH % 15.3 % (24.0-44.0); MEAN CORPUSCULAR HEMOGLOBIN 27.4 pg (27.0-33.0); MEAN CORPUSCULAR VOLUME 85.5 fl (80.0-96.0); MONO # 0.8 10^3/uL (0.0-0.8); MONO % 9.4 % (2.0-8.0); NEUTROPHILS % 74.2 % (36.0-66.0); PLATELET COUNT, AUTOMATED 207 10^3/uL (150-450); RED BLOOD COUNT 5.52 10^6/uL (4.30-6.10); WHITE BLOOD COUNT 8.1 10^3/uL (4.0-10.0)
[2024-01-20 13:25] LABS: INR 1.83; PROTHROMBIN TIME 20.5 SECONDS (12.5-14.5)
[2024-01-20 13:38] LABS: ALBUMIN 3.7 G/DL (3.2-5.2); ALKALINE PHOSPHATASE 112 U/L (46-116); ALT/SGPT 20 U/L (7.0-40); AST/SGOT 12 U/L (<34); BILIRUBIN,TOTAL 0.5 MG/DL (0.3-1.2); BLOOD UREA NITROGEN 17 MG/DL (9-23); CALCIUM LEVEL 8.3 MG/DL (8.3-10.6); CARBON DIOXIDE LEVEL 27 MMOL/L (20-31); CHLORIDE LEVEL 102 MMOL/L (98-107); CREATININE FOR GFR 1.27 MG/DL (0.70-1.30); GLOMERULAR FILTRATION RATE > 60.0 (>49); GLUCOSE, FASTING 122 MG/DL (74-106); MAGNESIUM LEVEL 1.9 MG/DL (1.8-2.4); POTASSIUM SERUM 4.1 MMOL/L (3.5-5.1); SODIUM LEVEL 135 MMOL/L (136-145); TOTAL PROTEIN 6.2 G/DL (5.7-8.2)
== END ==
LOC: M LABDRAWP 12:14
PROVIDERS: ATTEND Nurse Practitioner Acute Care
DX: Z79.899 Other long term (current) drug therapy (principal); Z79.01 Long term (current) use of anticoagulants; Z95.811 Presence of heart assist device; B99.9 Unspecified infectious disease; R79.0 Abnormal level of blood mineral

== ENCOUNTER → 2024-02-09 | Outpatient (REF) | payer OTHER ==
[2024-02-09 17:34] LABS: BASO # 0.1 10^3/uL (0.0-0.2); BASO % 0.6 % (0.0-1.0); EOS # 0.3 10^3/uL (0.0-0.5); EOS % 3.2 % (0.0-3.0); HEMATOCRIT 48.8 % (42.0-52.0); HEMOGLOBIN 15.1 g/dl (13.5-17.5); LYMPH # 1.1 10^3/uL (1.5-5.0); LYMPH % 14.3 % (24.0-44.0); MEAN CORPUSCULAR HEMOGLOBIN 26.3 pg (27.0-33.0); MEAN CORPUSCULAR HGB CONC 30.9 g/dl (32.0-36.5); MONO # 0.5 10^3/uL (0.0-0.8); MONO % 6.8 % (2.0-8.0); NEUTROPHILS # 5.8 10^3/uL (1.5-8.5); NEUTROPHILS % 74.6 % (36.0-66.0); PLATELET COUNT, AUTOMATED 192 10^3/uL (150-450); RED BLOOD COUNT 5.74 10^6/uL (4.30-6.10); WHITE BLOOD COUNT 7.8 10^3/uL (4.0-10.0)
[2024-02-09 17:48] LABS: C REACTIVE PROTEIN QUANTITATIV < 0.40 MG/DL (<1.0)
[2024-02-09 17:52] LABS: INR 1.95; PROTHROMBIN TIME 21.5 SECONDS (12.5-14.5)
[2024-02-09 18:21] LABS: ALBUMIN 3.9 G/DL (3.2-5.2); ALKALINE PHOSPHATASE 108 U/L (46-116); ALT/SGPT 20 U/L (7.0-40); AST/SGOT 13 U/L (<34); BILIRUBIN,TOTAL 0.6 MG/DL (0.3-1.2); BLOOD UREA NITROGEN 17 MG/DL (9-23); CALCIUM LEVEL 8.7 MG/DL (8.3-10.6); CARBON DIOXIDE LEVEL 27 MMOL/L (20-31); CHLORIDE LEVEL 104 MMOL/L (98-107); CREATININE FOR GFR 1.27 MG/DL (0.70-1.30); GLOMERULAR FILTRATION RATE > 60.0 (>49); GLUCOSE, FASTING 134 MG/DL (74-106); MAGNESIUM LEVEL 1.9 MG/DL (1.8-2.4); POTASSIUM SERUM 4.2 MMOL/L (3.5-5.1); SODIUM LEVEL 136 MMOL/L (136-145); TOTAL PROTEIN 6.7 G/DL (5.7-8.2)
== END ==
LOC: M LABDRWAD 16:48
PROVIDERS: ATTEND Nurse Practitioner Acute Care
DX: Z95.811 Presence of heart assist device (principal); B99.9 Unspecified infectious disease; Z79.899 Other long term (current) drug therapy; Z79.01 Long term (current) use of anticoagulants

== ENCOUNTER → 2024-02-24 | Outpatient (REF) | payer OTHER ==
[2024-02-24 18:04] LABS: BASO # 0.1 10^3/uL (0.0-0.2); BASO % 0.6 % (0.0-1.0); HEMATOCRIT 52.9 % (42.0-52.0); HEMOGLOBIN 16.1 g/dl (13.5-17.5); LYMPH # 1.2 10^3/uL (1.5-5.0); LYMPH % 12.8 % (24.0-44.0); MEAN CORPUSCULAR HEMOGLOBIN 25.9 pg (27.0-33.0); MEAN CORPUSCULAR HGB CONC 30.4 g/dl (32.0-36.5); MONO # 0.8 10^3/uL (0.0-0.8); MONO % 8.9 % (2.0-8.0); NEUTROPHILS # 7.3 10^3/uL (1.5-8.5); NEUTROPHILS % 77.1 % (36.0-66.0); PLATELET COUNT, AUTOMATED 210 10^3/uL (150-450); RED BLOOD COUNT 6.22 10^6/uL (4.30-6.10); WHITE BLOOD COUNT 9.5 10^3/uL (4.0-10.0)
[2024-02-24 18:09] LABS: C REACTIVE PROTEIN QUANTITATIV 0.4 MG/DL (<1.0)
[2024-02-24 18:10] LABS: ALBUMIN 3.9 G/DL (3.2-5.2); BILIRUBIN,TOTAL 0.4 MG/DL (0.3-1.2); CALCIUM LEVEL 9.5 MG/DL (8.3-10.6); CREATININE FOR GFR 1.33 MG/DL (0.70-1.30); GLOMERULAR FILTRATION RATE 57.8 (>49); MAGNESIUM LEVEL 2.1 MG/DL (1.8-2.4); POTASSIUM SERUM 4.5 MMOL/L (3.5-5.1); TOTAL PROTEIN 6.9 G/DL (5.7-8.2)
[2024-02-24 18:12] LABS: INR 2.22; PROTHROMBIN TIME 23.8 SECONDS (12.5-14.5)
== END ==
LOC: M LABDRWAD 16:55
PROVIDERS: ATTEND Nurse Practitioner Acute Care
DX: Z79.01 Long term (current) use of anticoagulants (principal); Z79.899 Other long term (current) drug therapy; Z95.811 Presence of heart assist device; B99.9 Unspecified infectious disease; R79.0 Abnormal level of blood mineral

== ENCOUNTER → 2024-03-15 | Outpatient (REF) | payer OTHER ==
[2024-03-15 17:54] LABS: BASO % 0.5 % (0.0-1.0); EOS % 0.1 % (0.0-3.0); HEMATOCRIT 50.1 % (42.0-52.0); HEMOGLOBIN 15.5 g/dl (13.5-17.5); LYMPH # 1.2 10^3/uL (1.5-5.0); LYMPH % 14.7 % (24.0-44.0); MEAN CORPUSCULAR HGB CONC 30.9 g/dl (32.0-36.5); MEAN CORPUSCULAR VOLUME 83.9 fl (80.0-96.0); MONO # 0.7 10^3/uL (0.0-0.8); MONO % 8.7 % (2.0-8.0); NEUTROPHILS % 75.6 % (36.0-66.0); PLATELET COUNT, AUTOMATED 185 10^3/uL (150-450); RED BLOOD COUNT 5.97 10^6/uL (4.30-6.10); WHITE BLOOD COUNT 7.9 10^3/uL (4.0-10.0)
[2024-03-15 17:59] LABS: INR 2.16; PROTHROMBIN TIME 23.3 SECONDS (12.5-14.5)
[2024-03-15 18:15] LABS: C REACTIVE PROTEIN QUANTITATIV < 0.40 MG/DL (<1.0)
[2024-03-15 18:16] LABS: ALBUMIN 3.7 G/DL (3.2-5.2); ALKALINE PHOSPHATASE 127 U/L (46-116); ALT/SGPT 27 U/L (7.0-40); AST/SGOT 19 U/L (<34); BILIRUBIN,TOTAL 0.6 MG/DL (0.3-1.2); BLOOD UREA NITROGEN 14 MG/DL (9-23); CALCIUM LEVEL 8.8 MG/DL (8.3-10.6); CARBON DIOXIDE LEVEL 30 MMOL/L (20-31); CHLORIDE LEVEL 104 MMOL/L (98-107); CREATININE FOR GFR 1.43 MG/DL (0.70-1.30); GLOMERULAR FILTRATION RATE 53.2 (>49); GLUCOSE, FASTING 114 MG/DL (74-106); POTASSIUM SERUM 4.6 MMOL/L (3.5-5.1); SODIUM LEVEL 137 MMOL/L (136-145); TOTAL PROTEIN 6.6 G/DL (5.7-8.2)
== END ==
LOC: M LABDRWAD 17:07
PROVIDERS: ATTEND Nurse Practitioner Acute Care
DX: Z79.01 Long term (current) use of anticoagulants (principal); Z79.899 Other long term (current) drug therapy; Z95.811 Presence of heart assist device; B99.9 Unspecified infectious disease

== ENCOUNTER → 2024-04-18 | Outpatient (REF) | payer OTHER ==
[2024-04-18 13:18] LABS: BASO % 0.5 % (0.0-1.0); HEMATOCRIT 50.9 % (42.0-52.0); HEMOGLOBIN 15.9 g/dl (13.5-17.5); LYMPH # 1.3 10^3/uL (1.5-5.0); LYMPH % 15.4 % (24.0-44.0); MEAN CORPUSCULAR HGB CONC 31.2 g/dl (32.0-36.5); MEAN CORPUSCULAR VOLUME 83.2 fl (80.0-96.0); MONO # 0.7 10^3/uL (0.0-0.8); MONO % 8.6 % (2.0-8.0); NEUTROPHILS # 6.3 10^3/uL (1.5-8.5); PLATELET COUNT, AUTOMATED 185 10^3/uL (150-450); RED BLOOD COUNT 6.12 10^6/uL (4.30-6.10); WHITE BLOOD COUNT 8.4 10^3/uL (4.0-10.0)
[2024-04-18 13:29] LABS: INR 2.31; PROTHROMBIN TIME 24.6 SECONDS (12.5-14.5)
[2024-04-18 13:53] LABS: C REACTIVE PROTEIN QUANTITATIV < 0.40 MG/DL (<1.0)
[2024-04-18 13:55] LABS: ALBUMIN 3.8 G/DL (3.2-5.2); ALKALINE PHOSPHATASE 134 U/L (46-116); ALT/SGPT 26 U/L (7.0-40); AST/SGOT 14 U/L (<34); BILIRUBIN,TOTAL 0.6 MG/DL (0.3-1.2); BLOOD UREA NITROGEN 18 MG/DL (9-23); CALCIUM LEVEL 8.6 MG/DL (8.3-10.6); CARBON DIOXIDE LEVEL 28 MMOL/L (20-31); CHLORIDE LEVEL 102 MMOL/L (98-107); CREATININE FOR GFR 1.27 MG/DL (0.70-1.30); GLOMERULAR FILTRATION RATE > 60.0 (>49); GLUCOSE, FASTING 111 MG/DL (74-106); POTASSIUM SERUM 4.3 MMOL/L (3.5-5.1); SODIUM LEVEL 136 MMOL/L (136-145); TOTAL PROTEIN 6.7 G/DL (5.7-8.2)
== END ==
LOC: M LABDRWAD 12:21
PROVIDERS: ATTEND Nurse Practitioner Acute Care
DX: Z95.811 Presence of heart assist device (principal); B99.9 Unspecified infectious disease; Z79.899 Other long term (current) drug therapy

== ENCOUNTER → 2024-05-01 | Outpatient (CLI) | payer OTHER | LOC: M PLALAB 12:53 | PROVIDERS: ATTEND Nurse Practitioner Family | DX: R97.20 Elevated prostate specific antigen [PSA] (principal) ==

== ENCOUNTER → 2024-05-30 | Outpatient (REF) | payer OTHER | LOC: M SMT 12:25 | PROVIDERS: ATTEND Urology | DX: R97.20 Elevated prostate specific antigen [PSA] (principal); C61 Malignant neoplasm of prostate ==

== ENCOUNTER → 2024-06-13 | Outpatient (REF) | payer OTHER ==
[2024-06-13 17:54] LABS: BASO # 0.1 10^3/uL (0.0-0.2); BASO % 0.7 % (0.0-1.0); HEMATOCRIT 48.3 % (42.0-52.0); HEMOGLOBIN 15.7 g/dl (13.5-17.5); LYMPH # 1.2 10^3/uL (1.5-5.0); LYMPH % 13.7 % (24.0-44.0); MEAN CORPUSCULAR HEMOGLOBIN 27.6 pg (27.0-33.0); MEAN CORPUSCULAR HGB CONC 32.5 g/dl (32.0-36.5); MONO # 0.8 10^3/uL (0.0-0.8); MONO % 8.9 % (2.0-8.0); NEUTROPHILS # 6.5 10^3/uL (1.5-8.5); NEUTROPHILS % 75.9 % (36.0-66.0); PLATELET COUNT, AUTOMATED 177 10^3/uL (150-450); RED BLOOD COUNT 5.68 10^6/uL (4.30-6.10); WHITE BLOOD COUNT 8.5 10^3/uL (4.0-10.0)
[2024-06-13 18:05] LABS: C REACTIVE PROTEIN QUANTITATIV < 0.40 MG/DL (<1.0)
[2024-06-13 18:07] LABS: ALBUMIN 3.6 G/DL (3.2-5.2); ALKALINE PHOSPHATASE 121 U/L (40-129); ALT/SGPT 24 U/L (7.0-40); AST/SGOT 15 U/L (<34); BILIRUBIN,TOTAL 0.8 MG/DL (0.3-1.2); BLOOD UREA NITROGEN 17 MG/DL (9-23); CALCIUM LEVEL 9.2 MG/DL (8.3-10.6); CARBON DIOXIDE LEVEL 27 MMOL/L (20-31); CHLORIDE LEVEL 103 MMOL/L (98-107); GLOMERULAR FILTRATION RATE > 60.0 (>49); GLUCOSE, FASTING 108 MG/DL (74-106); INR 2.08; MAGNESIUM LEVEL 2.1 MG/DL (1.8-2.4); POTASSIUM SERUM 4.5 MMOL/L (3.5-5.1); PROTHROMBIN TIME 23.5 SECONDS (12.5-14.5); SODIUM LEVEL 135 MMOL/L (136-145); TOTAL PROTEIN 6.7 G/DL (5.7-8.2)
== END ==
LOC: M LABDRWAD 17:16
PROVIDERS: ATTEND Nurse Practitioner Acute Care
DX: Z79.899 Other long term (current) drug therapy (principal); Z79.01 Long term (current) use of anticoagulants; Z95.811 Presence of heart assist device

== ENCOUNTER → 2024-07-11 | Outpatient (CLI) | payer OTHER ==
[~2024-07-11] MED LIST changes: +ATOR-398 PO; +ATOR40TA75 PO; +BICA50TA4 PO; -LIPI80TA PO
== END ==
LOC: M ONCR 14:46
PROVIDERS: ATTEND General Practice
DX: C61 Malignant neoplasm of prostate (principal); R97.20 Elevated prostate specific antigen [PSA]; Z80.42 Family history of malignant neoplasm of prostate; Z80.41 Family history of malignant neoplasm of ovary; Z87.891 Personal history of nicotine dependence; Z88.8 Allergy status to other drugs, medicaments and biological substances; Z79.01 Long term (current) use of anticoagulants; Z79.620 Long term (current) use of immunosuppressive biologic; Z79.84 Long term (current) use of oral hypoglycemic drugs; Z79.890 Hormone replacement therapy; Z79.899 Other long term (current) drug therapy; Z95.811 Presence of heart assist device

== ENCOUNTER → 2024-07-12 | Outpatient (REF) | payer OTHER ==
[2024-07-12 12:42] LABS: BASO % 0.5 % (0.0-1.0); HEMOGLOBIN 16.8 g/dl (13.5-17.5); LYMPH # 1.4 10^3/uL (1.5-5.0); LYMPH % 18.4 % (24.0-44.0); MEAN CORPUSCULAR HEMOGLOBIN 27.7 pg (27.0-33.0); MEAN CORPUSCULAR HGB CONC 32.3 g/dl (32.0-36.5); MEAN CORPUSCULAR VOLUME 85.8 fl (80.0-96.0); MONO # 0.7 10^3/uL (0.0-0.8); MONO % 8.8 % (2.0-8.0); NEUTROPHILS # 5.5 10^3/uL (1.5-8.5); NEUTROPHILS % 71.8 % (36.0-66.0); PLATELET COUNT, AUTOMATED 163 10^3/uL (150-450); RED BLOOD COUNT 6.06 10^6/uL (4.30-6.10); WHITE BLOOD COUNT 7.6 10^3/uL (4.0-10.0)
[2024-07-12 13:06] LABS: INR 2.54; PROTHROMBIN TIME 27.4 SECONDS (12.5-14.5)
[2024-07-12 13:17] LABS: ALBUMIN 3.6 G/DL (3.2-5.2); ALKALINE PHOSPHATASE 119 U/L (40-129); ALT/SGPT 22 U/L (7.0-40); AST/SGOT 17 U/L (<34); BILIRUBIN,TOTAL 0.5 MG/DL (0.3-1.2); BLOOD UREA NITROGEN 21 MG/DL (9-23); C REACTIVE PROTEIN QUANTITATIV 0.62 MG/DL (<1.0); CALCIUM LEVEL 9.3 MG/DL (8.3-10.6); CARBON DIOXIDE LEVEL 28 MMOL/L (20-31); CHLORIDE LEVEL 106 MMOL/L (98-107); CREATININE FOR GFR 1.18 MG/DL (0.70-1.30); GLOMERULAR FILTRATION RATE > 60.0 (>49); GLUCOSE, FASTING 91 MG/DL (74-106); MAGNESIUM LEVEL 1.9 MG/DL (1.8-2.4); POTASSIUM SERUM 4.4 MMOL/L (3.5-5.1); SODIUM LEVEL 139 MMOL/L (136-145); TOTAL PROTEIN 6.8 G/DL (5.7-8.2)
== END ==
LOC: M LABDRWAD 12:26
PROVIDERS: ATTEND Nurse Practitioner Acute Care
DX: Z79.899 Other long term (current) drug therapy (principal); Z79.01 Long term (current) use of anticoagulants; Z95.811 Presence of heart assist device; R79.0 Abnormal level of blood mineral; B99.9 Unspecified infectious disease

== ENCOUNTER → 2024-07-18 | Outpatient (REF) | payer OTHER ==
[2024-07-18 17:26] LABS: BASO % 0.5 % (0.0-1.0); HEMATOCRIT 50.2 % (42.0-52.0); HEMOGLOBIN 16.2 g/dl (13.5-17.5); LYMPH % 11.4 % (24.0-44.0); MEAN CORPUSCULAR HGB CONC 32.3 g/dl (32.0-36.5); MEAN CORPUSCULAR VOLUME 86.9 fl (80.0-96.0); MONO # 0.9 10^3/uL (0.0-0.8); MONO % 10.5 % (2.0-8.0); NEUTROPHILS # 6.7 10^3/uL (1.5-8.5); NEUTROPHILS % 77.3 % (36.0-66.0); PLATELET COUNT, AUTOMATED 187 10^3/uL (150-450); RED BLOOD COUNT 5.78 10^6/uL (4.30-6.10); WHITE BLOOD COUNT 8.6 10^3/uL (4.0-10.0)
[2024-07-18 17:30] LABS: ALBUMIN 3.6 G/DL (3.2-5.2); BILIRUBIN,TOTAL 0.6 MG/DL (0.3-1.2); C REACTIVE PROTEIN QUANTITATIV 0.71 MG/DL (<1.0); CALCIUM LEVEL 9.4 MG/DL (8.3-10.6); CREATININE FOR GFR 1.38 MG/DL (0.70-1.30); GLOMERULAR FILTRATION RATE 55.4 (>49); MAGNESIUM LEVEL 2.2 MG/DL (1.8-2.4); POTASSIUM SERUM 4.3 MMOL/L (3.5-5.1); TOTAL PROTEIN 6.9 G/DL (5.7-8.2)
[2024-07-18 17:42] LABS: INR 2.63; PROTHROMBIN TIME 28.1 SECONDS (12.5-14.5)
== END ==
LOC: M LABDRWAD 16:59
PROVIDERS: ATTEND Nurse Practitioner Acute Care
DX: Z79.01 Long term (current) use of anticoagulants (principal); Z79.899 Other long term (current) drug therapy; Z95.811 Presence of heart assist device; B99.9 Unspecified infectious disease; R79.0 Abnormal level of blood mineral

== ENCOUNTER → 2024-07-27 | Outpatient (REF) | payer OTHER ==
[2024-07-27 12:56] LABS: BASO # 0.1 10^3/uL (0.0-0.2); BASO % 0.7 % (0.0-1.0); HEMATOCRIT 51.2 % (42.0-52.0); HEMOGLOBIN 16.5 g/dl (13.5-17.5); LYMPH # 1.3 10^3/uL (1.5-5.0); MEAN CORPUSCULAR HEMOGLOBIN 27.8 pg (27.0-33.0); MEAN CORPUSCULAR HGB CONC 32.2 g/dl (32.0-36.5); MEAN CORPUSCULAR VOLUME 86.2 fl (80.0-96.0); MONO # 0.8 10^3/uL (0.0-0.8); MONO % 9.2 % (2.0-8.0); NEUTROPHILS # 6.6 10^3/uL (1.5-8.5); NEUTROPHILS % 74.6 % (36.0-66.0); PLATELET COUNT, AUTOMATED 180 10^3/uL (150-450); RED BLOOD COUNT 5.94 10^6/uL (4.30-6.10); WHITE BLOOD COUNT 8.9 10^3/uL (4.0-10.0)
[2024-07-27 13:06] LABS: INR 2.35; PROTHROMBIN TIME 25.8 SECONDS (12.5-14.5)
[2024-07-27 13:18] LABS: ALBUMIN 3.8 G/DL (3.2-5.2); ALKALINE PHOSPHATASE 121 U/L (40-129); ALT/SGPT 23 U/L (7.0-40); AST/SGOT 17 U/L (<34); BILIRUBIN,TOTAL 0.6 MG/DL (0.3-1.2); BLOOD UREA NITROGEN 18 MG/DL (9-23); C REACTIVE PROTEIN QUANTITATIV < 0.50 MG/DL (<1.0); CALCIUM LEVEL 9.1 MG/DL (8.3-10.6); CARBON DIOXIDE LEVEL 29 MMOL/L (20-31); CHLORIDE LEVEL 105 MMOL/L (98-107); CREATININE FOR GFR 1.19 MG/DL (0.70-1.30); GLOMERULAR FILTRATION RATE > 60.0 (>49); GLUCOSE, FASTING 105 MG/DL (74-106); POTASSIUM SERUM 4.5 MMOL/L (3.5-5.1); SODIUM LEVEL 141 MMOL/L (136-145); TOTAL PROTEIN 6.8 G/DL (5.7-8.2)
== END ==
LOC: M LABDRWAD 12:11
PROVIDERS: ATTEND Nurse Practitioner Acute Care
DX: Z79.01 Long term (current) use of anticoagulants (principal); Z79.899 Other long term (current) drug therapy; Z95.811 Presence of heart assist device; B99.9 Unspecified infectious disease; R79.0 Abnormal level of blood mineral

== ENCOUNTER 2024-08-03 11:01 | Outpatient (RCR) | payer OTHER | END 2024-08-08 | LOC: M ONCR 11:01 | PROVIDERS: ATTEND General Practice | DX: Z51.0 Encounter for antineoplastic radiation therapy (principal); C61 Malignant neoplasm of prostate ==

== ENCOUNTER → 2024-08-17 | Outpatient (REF) | payer OTHER ==
[2024-08-17 18:07] LABS: BASO % 0.5 % (0.0-1.0); EOS % 0.2 % (0.0-3.0); HEMATOCRIT 53.1 % (42.0-52.0); HEMOGLOBIN 17.1 g/dl (13.5-17.5); LYMPH # 1.5 10^3/uL (1.5-5.0); LYMPH % 18.5 % (24.0-44.0); MEAN CORPUSCULAR HEMOGLOBIN 27.9 pg (27.0-33.0); MEAN CORPUSCULAR HGB CONC 32.2 g/dl (32.0-36.5); MEAN CORPUSCULAR VOLUME 86.5 fl (80.0-96.0); MONO # 0.6 10^3/uL (0.0-0.8); MONO % 7.8 % (2.0-8.0); NEUTROPHILS # 5.9 10^3/uL (1.5-8.5); NEUTROPHILS % 72.3 % (36.0-66.0); PLATELET COUNT, AUTOMATED 195 10^3/uL (150-450); RED BLOOD COUNT 6.14 10^6/uL (4.30-6.10); WHITE BLOOD COUNT 8.1 10^3/uL (4.0-10.0)
[2024-08-17 18:17] LABS: INR 2.71; PROTHROMBIN TIME 28.7 SECONDS (12.5-14.5)
[2024-08-17 18:38] LABS: ALBUMIN 3.9 G/DL (3.2-5.2); ALKALINE PHOSPHATASE 136 U/L (40-129); ALT/SGPT 33 U/L (7.0-40); AST/SGOT 24 U/L (<34); BILIRUBIN,TOTAL 0.6 MG/DL (0.3-1.2); BLOOD UREA NITROGEN 20 MG/DL (9-23); CALCIUM LEVEL 9.1 MG/DL (8.3-10.6); CARBON DIOXIDE LEVEL 26 MMOL/L (20-31); CHLORIDE LEVEL 102 MMOL/L (98-107); CREATININE FOR GFR 1.22 MG/DL (0.70-1.30); GLOMERULAR FILTRATION RATE > 60.0 (>49); GLUCOSE, FASTING 116 MG/DL (74-106); MAGNESIUM LEVEL 2.1 MG/DL (1.8-2.4); POTASSIUM SERUM 4.5 MMOL/L (3.5-5.1); SODIUM LEVEL 137 MMOL/L (136-145); TOTAL PROTEIN 7.4 G/DL (5.7-8.2)
[2024-08-17 18:40] LABS: C REACTIVE PROTEIN QUANTITATIV 0.52 MG/DL (<1.0)
== END ==
LOC: M LABDRWAD 17:02
PROVIDERS: ATTEND Nurse Practitioner Acute Care
DX: Z95.811 Presence of heart assist device (principal); Z79.01 Long term (current) use of anticoagulants; Z79.899 Other long term (current) drug therapy; R79.0 Abnormal level of blood mineral; B99.9 Unspecified infectious disease

== ENCOUNTER → 2024-08-22 | Outpatient (CLI) | payer OTHER ==
[2024-08-22] MEDS: LEUPROLIDE 45MG SYRINGE KIT (LUPRON DEPOT) IM ONE (12:05)
== END ==
LOC: M ONCR 11:20
PROVIDERS: ATTEND General Practice
DX: C61 Malignant neoplasm of prostate (principal)
CPT/HCPCS: 96402; J9217

== ENCOUNTER → 2024-09-08 | Outpatient (REF) | payer OTHER ==
[2024-09-08 13:06] LABS: INR 2.46; PROTHROMBIN TIME 26.7 SECONDS (12.5-14.5)
[2024-09-08 14:18] LABS: BASO # 0.1 10^3/uL (0.0-0.2); BASO % 0.7 % (0.0-1.0); EOS % 0.2 % (0.0-3.0); HEMATOCRIT 53.1 % (42.0-52.0); HEMOGLOBIN 17.2 g/dl (13.5-17.5); LYMPH # 1.3 10^3/uL (1.5-5.0); LYMPH % 15.5 % (24.0-44.0); MEAN CORPUSCULAR HEMOGLOBIN 28.7 pg (27.0-33.0); MEAN CORPUSCULAR HGB CONC 32.4 g/dl (32.0-36.5); MEAN CORPUSCULAR VOLUME 88.5 fl (80.0-96.0); MONO # 0.8 10^3/uL (0.0-0.8); NEUTROPHILS # 6.2 10^3/uL (1.5-8.5); PLATELET COUNT, AUTOMATED 168 10^3/uL (150-450); WHITE BLOOD COUNT 8.3 10^3/uL (4.0-10.0)
[2024-09-08 14:23] LABS: C REACTIVE PROTEIN QUANTITATIV 0.81 MG/DL (<1.0)
[2024-09-08 14:24] LABS: ALBUMIN 3.8 G/DL (3.2-5.2); ALKALINE PHOSPHATASE 138 U/L (40-129); ALT/SGPT 22 U/L (7.0-40); AST/SGOT 20 U/L (<34); BILIRUBIN,TOTAL 0.7 MG/DL (0.3-1.2); BLOOD UREA NITROGEN 18 MG/DL (9-23); CALCIUM LEVEL 8.5 MG/DL (8.3-10.6); CARBON DIOXIDE LEVEL 29 MMOL/L (20-31); CHLORIDE LEVEL 101 MMOL/L (98-107); GLOMERULAR FILTRATION RATE > 60.0 (>49); GLUCOSE, FASTING 118 MG/DL (74-106); POTASSIUM SERUM 4.3 MMOL/L (3.5-5.1); SODIUM LEVEL 139 MMOL/L (136-145)
== END ==
LOC: M LABDRWAD 12:48
PROVIDERS: ATTEND Nurse Practitioner Acute Care
DX: B99.9 Unspecified infectious disease (principal); R79.0 Abnormal level of blood mineral; Z79.01 Long term (current) use of anticoagulants; Z79.899 Other long term (current) drug therapy; Z95.811 Presence of heart assist device

== ENCOUNTER → 2024-09-08 | Outpatient (RCR) | payer OTHER | LOC: M ONCR 08-11 07:57 | PROVIDERS: ATTEND General Practice | DX: Z51.0 Encounter for antineoplastic radiation therapy (principal); C61 Malignant neoplasm of prostate ==

== ENCOUNTER → 2024-09-27 | Outpatient (REF) | payer OTHER ==
[2024-09-27 12:46] LABS: BASO % 0.5 % (0.0-1.0); HEMATOCRIT 48.2 % (42.0-52.0); HEMOGLOBIN 16.1 g/dl (13.5-17.5); LYMPH # 0.5 10^3/uL (1.5-5.0); LYMPH % 8.2 % (24.0-44.0); MEAN CORPUSCULAR HEMOGLOBIN 28.6 pg (27.0-33.0); MEAN CORPUSCULAR HGB CONC 33.4 g/dl (32.0-36.5); MEAN CORPUSCULAR VOLUME 85.8 fl (80.0-96.0); MONO # 0.7 10^3/uL (0.0-0.8); MONO % 11.6 % (2.0-8.0); NEUTROPHILS # 4.8 10^3/uL (1.5-8.5); PLATELET COUNT, AUTOMATED 142 10^3/uL (150-450); RED BLOOD COUNT 5.62 10^6/uL (4.30-6.10)
[2024-09-27 12:48] LABS: INR 2.27; PROTHROMBIN TIME 25.1 SECONDS (12.5-14.5)
[2024-09-27 12:50] LABS: ALBUMIN 3.5 G/DL (3.2-5.2); ALKALINE PHOSPHATASE 125 U/L (40-129); ALT/SGPT 28 U/L (7.0-40); AST/SGOT 19 U/L (<34); BILIRUBIN,TOTAL 0.8 MG/DL (0.3-1.2); BLOOD UREA NITROGEN 17 MG/DL (9-23); C REACTIVE PROTEIN QUANTITATIV < 0.50 MG/DL (<1.0); CALCIUM LEVEL 8.5 MG/DL (8.3-10.6); CARBON DIOXIDE LEVEL 28 MMOL/L (20-31); CHLORIDE LEVEL 101 MMOL/L (98-107); GLOMERULAR FILTRATION RATE > 60.0 (>49); GLUCOSE, FASTING 104 MG/DL (74-106); POTASSIUM SERUM 4.8 MMOL/L (3.5-5.1); SODIUM LEVEL 137 MMOL/L (136-145); TOTAL PROTEIN 6.5 G/DL (5.7-8.2)
== END ==
LOC: M LABDRWAD 12:19
PROVIDERS: ATTEND Nurse Practitioner Acute Care
DX: Z79.01 Long term (current) use of anticoagulants (principal); Z79.899 Other long term (current) drug therapy; Z95.811 Presence of heart assist device; B99.9 Unspecified infectious disease

== ENCOUNTER → 2024-10-06 | Outpatient (RCR) | payer OTHER ==
[~2024-10-06] MED LIST changes: +FLOM0.4C39 PO
== END ==
LOC: M ONCR 09-11 09:13
PROVIDERS: ATTEND General Practice
DX: Z51.0 Encounter for antineoplastic radiation therapy (principal); C61 Malignant neoplasm of prostate

== ENCOUNTER → 2024-10-18 | Outpatient (REF) | payer OTHER ==
[2024-10-18 12:58] LABS: BASO % 0.5 % (0.0-1.0); EOS % 0.3 % (0.0-3.0); HEMATOCRIT 48.3 % (42.0-52.0); HEMOGLOBIN 16.1 g/dl (13.5-17.5); LYMPH # 0.6 10^3/uL (1.5-5.0); LYMPH % 9.5 % (24.0-44.0); MEAN CORPUSCULAR HEMOGLOBIN 29.3 pg (27.0-33.0); MEAN CORPUSCULAR HGB CONC 33.3 g/dl (32.0-36.5); MONO # 0.7 10^3/uL (0.0-0.8); NEUTROPHILS # 4.9 10^3/uL (1.5-8.5); NEUTROPHILS % 78.1 % (36.0-66.0); PLATELET COUNT, AUTOMATED 163 10^3/uL (150-450); RED BLOOD COUNT 5.49 10^6/uL (4.30-6.10); WHITE BLOOD COUNT 6.3 10^3/uL (4.0-10.0)
[2024-10-18 13:07] LABS: INR 2.37; PROTHROMBIN TIME 25.9 SECONDS (12.5-14.5)
[2024-10-18 13:28] LABS: ALBUMIN 3.8 G/DL (3.2-5.2); ALKALINE PHOSPHATASE 128 U/L (40-129); ALT/SGPT 23 U/L (7.0-40); AST/SGOT 18 U/L (<34); BILIRUBIN,TOTAL 0.6 MG/DL (0.3-1.2); BLOOD UREA NITROGEN 16 MG/DL (9-23); C REACTIVE PROTEIN QUANTITATIV < 0.50 MG/DL (<1.0); CARBON DIOXIDE LEVEL 29 MMOL/L (20-31); CHLORIDE LEVEL 104 MMOL/L (98-107); GLOMERULAR FILTRATION RATE > 60.0 (>49); GLUCOSE, FASTING 109 MG/DL (74-106); MAGNESIUM LEVEL 2.1 MG/DL (1.8-2.4); POTASSIUM SERUM 4.7 MMOL/L (3.5-5.1); SODIUM LEVEL 140 MMOL/L (136-145)
== END ==
LOC: M LABDRWAD 12:44
PROVIDERS: ATTEND Nurse Practitioner Acute Care
DX: B99.9 Unspecified infectious disease (principal); Z79.899 Other long term (current) drug therapy; Z95.811 Presence of heart assist device; Z79.01 Long term (current) use of anticoagulants

== ENCOUNTER → 2024-10-23 | Outpatient (REF) | payer OTHER | LOC: M LAB REF 12:32 | PROVIDERS: ATTEND Internal Medicine | DX: C61 Malignant neoplasm of prostate (principal) ==

== ENCOUNTER → 2024-11-07 | Outpatient (CLI) | payer OTHER ==
[2024-11-07 12:57] LABS: ALBUMIN 3.5 G/DL (3.2-5.2); ALKALINE PHOSPHATASE 131 U/L (40-129); ALT/SGPT 22 U/L (7.0-40); AST/SGOT 17 U/L (<34); BILIRUBIN,TOTAL 0.6 MG/DL (0.3-1.2); BLOOD UREA NITROGEN 19 MG/DL (9-23); C REACTIVE PROTEIN QUANTITATIV 0.87 MG/DL (<1.0); CALCIUM LEVEL 8.4 MG/DL (8.3-10.6); CARBON DIOXIDE LEVEL 28 MMOL/L (20-31); CHLORIDE LEVEL 104 MMOL/L (98-107); CREATININE FOR GFR 1.16 MG/DL (0.70-1.30); GLOMERULAR FILTRATION RATE > 60.0 (>49); GLUCOSE, FASTING 115 MG/DL (74-106); INR 2.28; MAGNESIUM LEVEL 2.1 MG/DL (1.8-2.4); POTASSIUM SERUM 4.4 MMOL/L (3.5-5.1); PROTHROMBIN TIME 25.2 SECONDS (12.5-14.5); SODIUM LEVEL 137 MMOL/L (136-145); TOTAL PROTEIN 6.5 G/DL (5.7-8.2)
[2024-11-07 13:03] LABS: BASO % 0.5 % (0.0-1.0); EOS % 0.5 % (0.0-3.0); HEMATOCRIT 44.8 % (42.0-52.0); HEMOGLOBIN 14.8 g/dl (13.5-17.5); LYMPH # 0.6 10^3/uL (1.5-5.0); LYMPH % 9.9 % (24.0-44.0); MEAN CORPUSCULAR HEMOGLOBIN 29.5 pg (27.0-33.0); MEAN CORPUSCULAR VOLUME 89.4 fl (80.0-96.0); MONO # 0.5 10^3/uL (0.0-0.8); NEUTROPHILS % 80.1 % (36.0-66.0); PLATELET COUNT, AUTOMATED 185 10^3/uL (150-450); RED BLOOD COUNT 5.01 10^6/uL (4.30-6.10); WHITE BLOOD COUNT 6.3 10^3/uL (4.0-10.0)
== END ==
LOC: M ADAMS 09:59
PROVIDERS: ATTEND Nurse Practitioner Acute Care
DX: Z79.01 Long term (current) use of anticoagulants (principal); Z79.899 Other long term (current) drug therapy; Z95.811 Presence of heart assist device

== ENCOUNTER → 2024-12-12 | Outpatient (REF) | payer OTHER ==
[~2024-12-12] MED LIST changes: -FLOM0.4C39 PO; +TAMS-18 PO
[2024-12-12 13:07] LABS: INR 1.92; PROTHROMBIN TIME 22.2 SECONDS (12.5-14.5)
[2024-12-12 13:18] LABS: BASO # 0.1 10^3/uL (0.0-0.2); BASO % 0.9 % (0.0-1.0); HEMATOCRIT 47.3 % (42.0-52.0); HEMOGLOBIN 15.6 g/dl (13.5-17.5); LYMPH # 0.8 10^3/uL (1.5-5.0); LYMPH % 11.1 % (24.0-44.0); MEAN CORPUSCULAR HEMOGLOBIN 29.9 pg (27.0-33.0); MEAN CORPUSCULAR VOLUME 90.8 fl (80.0-96.0); MONO # 0.6 10^3/uL (0.0-0.8); MONO % 8.2 % (2.0-8.0); NEUTROPHILS # 5.5 10^3/uL (1.5-8.5); NEUTROPHILS % 79.1 % (36.0-66.0); PLATELET COUNT, AUTOMATED 168 10^3/uL (150-450); RED BLOOD COUNT 5.21 10^6/uL (4.30-6.10)
[2024-12-12 13:43] LABS: C REACTIVE PROTEIN QUANTITATIV 0.71 MG/DL (<1.0)
[2024-12-12 13:44] LABS: ALBUMIN 3.7 G/DL (3.2-5.2); BILIRUBIN,TOTAL 0.6 MG/DL (0.3-1.2); CALCIUM LEVEL 8.9 MG/DL (8.3-10.6); CREATININE FOR GFR 1.22 MG/DL (0.70-1.30); GLOMERULAR FILTRATION RATE 66.6 (>49); MAGNESIUM LEVEL 2.1 MG/DL (1.8-2.4); POTASSIUM SERUM 4.3 MMOL/L (3.5-5.1); TOTAL PROTEIN 6.6 G/DL (5.7-8.2)
== END ==
LOC: M LABDRWAD 12:44
PROVIDERS: ATTEND Nurse Practitioner Acute Care
DX: Z79.01 Long term (current) use of anticoagulants (principal); Z79.899 Other long term (current) drug therapy

== ENCOUNTER → 2024-12-27 | Outpatient (REF) | payer OTHER ==
[2024-12-27 14:35] LABS: BASO # 0.1 10^3/uL (0.0-0.2); BASO % 0.9 % (0.0-1.0); EOS # 0.2 10^3/uL (0.0-0.5); EOS % 2.6 % (0.0-3.0); HEMATOCRIT 49.8 % (42.0-52.0); HEMOGLOBIN 16.3 g/dl (13.5-17.5); LYMPH # 0.8 10^3/uL (1.5-5.0); LYMPH % 11.6 % (24.0-44.0); MEAN CORPUSCULAR HEMOGLOBIN 29.7 pg (27.0-33.0); MEAN CORPUSCULAR HGB CONC 32.7 g/dl (32.0-36.5); MEAN CORPUSCULAR VOLUME 90.7 fl (80.0-96.0); MONO # 0.7 10^3/uL (0.0-0.8); MONO % 10.4 % (2.0-8.0); NEUTROPHILS # 4.8 10^3/uL (1.5-8.5); NEUTROPHILS % 73.6 % (36.0-66.0); PLATELET COUNT, AUTOMATED 186 10^3/uL (150-450); RED BLOOD COUNT 5.49 10^6/uL (4.30-6.10); WHITE BLOOD COUNT 6.6 10^3/uL (4.0-10.0)
[2024-12-27 14:42] LABS: ALBUMIN 3.9 G/DL (3.2-5.2); BILIRUBIN,TOTAL 0.7 MG/DL (0.3-1.2); C REACTIVE PROTEIN QUANTITATIV 0.69 MG/DL (<1.0); CALCIUM LEVEL 9.5 MG/DL (8.3-10.6); CREATININE FOR GFR 1.23 MG/DL (0.70-1.30); POTASSIUM SERUM 4.7 MMOL/L (3.5-5.1)
[2024-12-27 14:49] LABS: INR 2.16; PROTHROMBIN TIME 24.2 SECONDS (12.5-14.5)
== END ==
LOC: M WUC 14:21
PROVIDERS: ATTEND Nurse Practitioner Acute Care
DX: Z79.01 Long term (current) use of anticoagulants (principal); Z79.899 Other long term (current) drug therapy; Z95.811 Presence of heart assist device; B99.9 Unspecified infectious disease; R79.0 Abnormal level of blood mineral

== ENCOUNTER → 2024-12-27 | Outpatient (CLI) | payer OTHER ==
[2024-12-27 14:41] LABS: PROSTATIC SPECIFIC AG MONITOR 0.15 NG/ML (< 4.00)
== END ==
LOC: M WUC 10:40
PROVIDERS: ATTEND General Practice
DX: C61 Malignant neoplasm of prostate (principal)

== ENCOUNTER 2025-06-21 11:59 | Emergency (ER) | payer OTHER, SELFPAY ==
[~2025-06-21] VITALS: Ht 185.4 cm; Wt 165.0 kg
[2025-06-21 15:23] LABS: BASO # 0.0 10^3/uL (0.0-0.2); BASO % 0.4 % (0.0-1.0); EOS # 0.0 10^3/uL (0.0-0.5); EOS % 0.0 % (0.0-3.0); LYMPH # 0.6 10^3/uL (1.5-5.0); LYMPH % 7.7 % (24.0-44.0); MONO # 0.6 10^3/uL (0.0-0.8); MONO % 6.9 % (2.0-8.0); NEUTROPHILS # 6.9 10^3/uL (1.5-8.5); NEUTROPHILS % 84.3 % (36.0-66.0); PLATELET COUNT, AUTOMATED 189 10^3/uL (150-450)
[2025-06-21 15:46] LABS: CALCIUM LEVEL 8.3 MG/DL (8.3-10.6); CARBON DIOXIDE LEVEL 27 MMOL/L (20-31); CHLORIDE LEVEL 104 MMOL/L (98-107); CREATININE FOR GFR 1.04 MG/DL (0.70-1.30); GLOMERULAR FILTRATION RATE 80.2 (>49); POTASSIUM SERUM 4.9 MMOL/L (3.5-5.1); SODIUM LEVEL 139 MMOL/L (136-145)
[2025-06-21 16:16] LABS: ALT/SGPT 26 U/L (7.0-40); AST/SGOT 34 U/L (<34)
[2025-06-21] MEDS ORDERED: ISOVUE-370 76% 100 ML VIAL As Ordered ONE (16:33)
[2025-06-21 18:45] VITALS: BP_SYST 96; O2SAT 99
[2025-06-21 18:48] VITALS: TEMP 98.3
== END 2025-06-21 19:01 | disposition home or self-care (01) ==
LOC: M ED 11:59 → EDBD 11:59 → M ED 19:01
DX: R11.0 Nausea (principal); G57.11 Meralgia paresthetica, right lower limb; E78.5 Hyperlipidemia, unspecified; I10 Essential (primary) hypertension; E66.9 Obesity, unspecified; Z95.811 Presence of heart assist device; Z86.79 Personal history of other diseases of the circulatory system; Z88.8 Allergy status to other drugs, medicaments and biological substances; Z79.02 Long term (current) use of antithrombotics/antiplatelets; Z79.899 Other long term (current) drug therapy; Z79.01 Long term (current) use of anticoagulants
CPT/HCPCS: 36415; 70450; 70496; 70498; 80048; 80076; 83690; 84443; 84484; 85025; 85730; 93005; 93041; 94760; 99285; Q9967